=== PATIENT | female | born 1945 | race Caucasian/White ===

== ENCOUNTER 2021-11-15 18:52 | Inpatient (IN) ==
[2021-11-15] MEDS ORDERED: 0.9 % SODIUM CHLORIDE 250 ML IV ONE (19:20)
[2021-11-15 19:58] LABS: POC Calcium, Ionized 1.02 mmEq/L (1.16-1.32); POC Creatinine 11.9 mg/dL (0.6-1.2); POC Potassium 4.6 mEql/L (3.3-5.1)
[2021-11-15 20:29] LABS: Basophils # (Auto) 0.04 K/mcL (0.00-0.30); Basophils % (Auto) 0.3 % (0.0-2.0); Eosinophils # (Auto) 0.07 K/mcL (0.00-0.70); Eosinophils % (Auto) 0.5 % (0.0-7.0); Hematocrit 31.6 % (34.1-44.9); Hemoglobin 10.6 g/dL (11.2-15.7); Lymphocytes # (Auto) 2.07 K/mcL (1.50-4.80); Lymphocytes % (Auto) 16.1 % (15.5-49.0); Mean Cell Volume 104.3 fL (80.0-100.0); Mean Corpuscular HGB Conc 33.5 g/dL (31.0-36.0); Mean Platelet Volume 10.1 fL (7.4-10.4); Monocytes # (Auto) 0.76 K/mcL (0.10-0.90); Monocytes % (Auto) 5.9 % (1.0-12.0); Neutrophils % (Auto) 77.2 % (38.0-78.0); Platelet Count 327 K/mcL (140-440); RBC 3.03 M/mcL (3.59-5.38); Red Cell Distribution Width 12.8 % (11.5-14.5); WBC 12.9 K/mcL (4.5-11.0)
[2021-11-15 21:01] LABS: Appearance,Urine CLOUDY (Clear); Bacteria,Urine FEW /hpf (0); Bilirubin,Urine Negative (Negative); Color,Urine AMBER; Culture Indicated,Urine Yes; Glucose,Urine (UA) Negative (Negative); Ketones,Urine 5 mg/dL (Negative); Leukocyte Esterase,Urine 75 /uL (Negative); Nitrate,Urine Negative (Negative); Protein,Urine 100 mg/dL (Negative); Specific Gravity,Urine 1.025 (1.000-1.035); Urine Blood Negative (Negative); Urine RBC 0 /hpf (0-3); Urine Squamous Epithelial Cell < 1 /hpf (0-4); Urine WBC 1 /hpf (0-4); Urobilinogen,Urine Negative
[2021-11-15 21:25] LABS: ALT/SGPT 22 U/L (<40); AST/SGOT 23 U/L (<32); Albumin 3.5 gm/dL (3.2-5.2); Albumin/Globulin Ratio 0.9 (1.0-2.3); Alkaline Phosphatase 104 U/L (39-117); Bilirubin,Total 0.3 mg/dL (0.1-1.0); Blood Urea Nitrogen 96 mg/dL (8-23); Calcium 9.2 mg/dL (8.6-10.4); Carbon Dioxide 17 mmol/L (22-30); Chloride 84 mmol/L (96-108); Globulin 3.7 gm/dL (2.2-3.7); Glomerular Filtration Rate 3; Glucose 240 mg/dL (70-105)
[2021-11-15] MEDS ORDERED: DILTIAZEM 25 MG/5 ML VIAL IV ONE (21:29)
--- NOTE | 2021-11-15 21:56 | Emergency Department Note ---
Weakness HPI General Chief complaint: Weakness Stated complaint: Weakness Time Seen by Provider: 11/15/21 19:08 Source: patient Mode of arrival: wheelchair Limitations: no limitations History of Present Illness HPI Narrative: Narrative: This is a patient with end-stage renal disease now on peritoneal dialysis for last 6 months previously hemodialysis, atrial fibrillation presenting to the ED with generalized weakness and feeling lightheaded when she would stand up today. She has had some gradual progressive generalized weakness and daughter is concerned that she perhaps is not getting complete dialysis at home on PD. Patient also endorses a couple days of watery diarrhea and feels dehydrated. No significant acute abdominal pain but has some mild chronic cramps. No fever no chills no URI symptoms no chest pain no significant dyspnea. Patient still makes urine no obvious urinary symptoms. She saw her doctor yesterday for her generalized fatigue and they stopped her A. fib medication including her Cardizem. She has noticed her heart rate is high today. No other complaints Related Data Home Medications Medication Instructions Recorded Confirmed cyanocobalamin (vitamin B-12) 1 tab PO QDAY 07/26/21 11/16/21 insulin detemir U-100 100 unit/mL 76 unit SUB-Q BID 07/26/21 11/16/21 (3 mL) subcutaneous pen (Levemir FlexTouch U-100 Insulin) insulin lispro 100 unit/mL 5 unit SUBCUT TID 10/06/21 11/16/21 subcutaneous solution calcium carbonate 500 mg capsule 1,500 mg PO .TID with meals cap 11/14/21 11/16/21 Previous Rx's Medication Instructions Recorded sitagliptin 25 mg tablet (Januvia) 25 mg PO QDAY #30 tab 11/16/20 ondansetron HCl 4 mg tablet 4 mg PO Q8H PRN #20 tab 05/03/21 (Zofran) clonazepam 1 mg tablet 1 mg PO QHS #60 tab 08/08/21 gentamicin 0.1 % topical cream 1 applic TOPICAL .three times a 09/19/21 week #30 g atorvastatin 20 mg tablet 20 mg PO QHS #30 tab 11/14/21 Allergies Allergy/AdvReac Type Severity Reaction Status Date / Time No Known Drug Allergies Allergy Verified 11/15/21 18:56 Review of Systems ROS ROS Narrative: Narrative: At least 10 systems reviewed and otherwise acutely negative except as in the HPI PFSH Narrative Patient History Narrative: Narrative: Medical/Surgical/Family History All Active Problems (Updated 11/16/21 @ 01:21 by Mahendra Lopez DO) Episode of generalized weakness (Acute) ESRD (end stage renal disease) on dialysis (Acute) Atrial tachycardia (Acute) Acute hypotension (Acute) Acute dehydration (Acute) End-stage renal disease (ESRD) (Acute) Acute uremia (Acute) Atrial fibrillation with RVR (Acute) UTI (urinary tract infection) (Acute) Allergic rhinitis (Chronic) Anemia in chronic kidney disease (Chronic 11/26/13) Anxiety disorder (Chronic 10/26/13) Bladder spasm (Chronic) Late, effect, cerebrovascular disease (Chronic) Chronic fatigue syndrome (Chronic) Chronic kidney disease, stage IV (severe) (Chronic 11/26/13) Degenerative joint disease (Chronic) Dermatitis (Chronic 10/26/13) Diabetes mellitus, type II (Chronic) Fatigue (Chronic) Hyperlipidemia (Chronic) Hypertension, essential (Chronic) Hypertensive renal disease (Chronic 11/26/13) Hypertonicity of bladder (Chronic) 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) Dysmetabolic syndrome X (Chronic) Muscle weakness (generalized) (Chronic) Personal history of noncompliance with medical treatment (Chronic) Peripheral neuropathy (Chronic) Proteinuria (Chronic) Sleep apnea (Chronic) Personal history of transient ischemic attack (TIA) and cerebral infarction without residual deficit (Chronic) Vitamin D deficiency (Chronic) Obesity (BMI 30.0-34.9) (Chronic) Hyperparathyroidism due to renal insufficiency (Chronic) Chronic anticoagulation (Chronic) Heart murmur, systolic (Chronic) History of gout (Chronic) Chronic renal failure, stage 4 (severe) (Chronic) Encounter for monitoring chronic NSAID therapy (Acute) Dehydration (Acute) Uncontrolled type 2 diabetes mellitus with stage 4 chronic kidney disease, with long-term current use of insulin (Chronic) Chronic edema (Chronic) UTI symptoms (Chronic) Anemia in chronic kidney disease (Chronic) Difficulty swallowing pills (Acute) Anemia due to stage 5 chronic kidney disease treated with darbepoetin (Chronic) CKD (chronic kidney disease) stage 5, GFR less than 15 ml/min (Chronic) Nephrotic range proteinuria (Chronic) CKD stage 5 due to type 2 diabetes mellitus (Acute) Abn react-renal dialysis (Acute) Type 2 DM with hypertension and ESRD on dialysis (Acute) Anxiety attack (Acute) ESRD (end stage renal disease) on dialysis (Acute) Hyperparathyroidism due to ESRD on dialysis (Acute) Constipation (Acute) Nausea and vomiting (Acute) Fatigue (Acute) Nausea (Acute) Acute UTI (urinary tract infection) (Acute) Situational anxiety (Acute) Vascular dialysis catheter in place (Acute) Tachycardia (Acute) Weakness (Acute) Atrial flutter (Acute) Vomiting (Acute) Abdominal pain (Acute) ESRD (end stage renal disease) (Acute) Complication of renal dialysis (Acute) Chronic anxiety (Acute) Peritoneal dialysis catheter exit site infection (Acute) Peritonitis associated with peritoneal dialysis (Acute) Dialysis catheter clot or failure (Acute) PD catheter dysfunction (Acute) PD catheter dysfunction (Acute) End stage kidney disease (Acute) Medical History Allergic rhinitis Anemia due to stage 5 chronic kidney disease treated with darbepoetin Progressive decline in GFR slowly approaching ESRD Symptomatic anemia with hematocrit of 28 Aranesp started Iron stores adequate Anemia in chronic kidney disease (11/26/13) Anxiety disorder (10/26/13) Bladder spasm Chronic anticoagulation clopidogrel (due to 2 TIA's) Chronic edema DM, proteinuria and reduced GFR. Suspect not salt restricted either. Chronic fatigue syndrome Chronic kidney disease, stage I Chronic kidney disease, stage II (mild) Chronic kidney disease, stage III (moderate) (12/17/13) Chronic kidney disease, stage IV (severe) (11/26/13) Severe proteinuria with a differential diagnosis of hypertensive nephrosclerosis, NSAID induced membranous GN versus diabetic nephrosclerosis. Have eliminated any myeloma. Chronic renal failure, stage 4 (severe) If one looks at the differential outlined in problem #1, all these are going to be treated by good diabetic control, goal blood pressure of 130/80, and using anti-proteinuric renal protective blood pressure medicines such as diltiazem and losartan. I fear its to like to have a significant impact on avoiding renal replacement therapy and end-stage renal disease CKD (chronic kidney disease) stage 5, GFR less than 15 ml/min Progressive decline in GFR with heavy proteinuria in the setting of diabetes We will check her pANCA level in case there is a pauci-immune GN but I doubt it She is on diltiazem with a low-dose RAASI but still has approximately 10 g of proteinuria Degenerative joint disease knees Depression Depression, major, single episode, moderate (10/26/13) Dermatitis (10/26/13) Diabetes mellitus, type II Diarrhea Disorder of kidney and ureter Chronic renal failure Dysmetabolic syndrome X Fatigue Heart murmur, systolic History of gout well controlled on chronic allopurinol Hyperlipidemia Hyperparathyroidism due to renal insufficiency Goal PTH level of 100-300 given his degree of renal failure Hypertension, essential Hypertensive renal disease (11/26/13) Hypertonicity of bladder Knee effusion Late, effect, cerebrovascular disease 03/2013 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 Muscle weakness (generalized) Nephrotic range proteinuria Presumed diabetes as the remainder of her noninvasive work-up is been negative Final test was and ANCA which was ordered for next month She is on RAASI and diltiazem to no avail Obesity (BMI 30.0-34.9) Peripheral neuropathy Personal history of noncompliance with medical treatment Personal history of transient ischemic attack (TIA) and cerebral infarction without residual deficit Proteinuria Nephrotic range Pyelonephritis Sleep apnea refused CPAP Uncontrolled type 2 diabetes mellitus with stage 4 chronic kidney disease, with long-term current use of insulin 20 + yrs DM with marked insulin resistance and proteinuria and progressive, poor renal fx UTI symptoms On oxybutynin which she says helps dribbling but may contribute to frequent UTIs Vitamin D deficiency Surgical History History of cataract surgery 2006 bilateral History of colonoscopy (06/07/13) History of esophagogastroduodenoscopy (06/07/13) History of hysterectomy 1998 History of joint replacement [address] Giron History of surgery 07/28/2021-laparoscopic assisted peritoneal dialysis catheter placement History of surgery 10/10/2021-PD catheter repositioning Family History Father Alcohol abuse Pulmonary emphysema Cause of Unknown Alzheimer's disease Type 2 diabetes mellitus Hypertension Disorder of joint Mother Alzheimer's disease Aunt Diabetes mellitus Brother Diabetes mellitus Social History Smoking Status: Never smoker Alcohol Intake Frequency: holiday/special occasion only Substance Use: does not use Exam Narrative Narrative: Narrative:Constitutional: normally developed, no acute distress . Head: Normocephalic, atraumatic, Eyes: No Icterus, ENT: Dry mucus membranes, Neck: Supple, Cardiac: Tachycardic irregular heart sounds, palpable radial pulses, no significant peripheral edema Pulmonary: Normal respiratory effort. Breath sounds clear, no wheeze, rhonchi, rales, Gastrointestinal: Abdomen soft, non-distended, non-tender, well-appearing left- sided PD catheter Musculoskeletal: No gross deformities, well perfused Skin: warm, dry Neuro: Alert and oriented. General Limitations: no limitations Course Vital Signs Vital signs: Vital Signs Temperature 36.1 C 11/15/21 18:53 Pulse Rate 140 H 11/15/21 18:53 Blood Pressure 98/64 11/15/21 18:53 Pulse Oximetry (%) 95 11/15/21 18:53 Temperature 36.1 C 11/15/21 18:53 Pulse Rate 125 H 11/16/21 01:20 Respiratory Rate 19 11/16/21 01:20 Blood Pressure 128/72 11/16/21 01:00 Pulse Oximetry (%) 96 11/16/21 01:[address] [facility] MDM Narrative Medical decision making narrative: Narrative: ESRD on nightly PD presenting with gradual generalized weakness myalgias feeling dehydrated and dizzy with standing, flareup of her A. fib after her medications were stopped yesterday. Work-up is initiated no new acute abdominal complaints or tenderness to suggest an SBP. She does appear a bit dry and is in A. fib RVR we will give her small aliquots of IV fluids given her ESRD status given initial 250 mL I suspect somewhat of her A. fib RVR is secondary to the fact she was stopped on her rate control Cardizem yesterday. Did give her 10 mg IV Cardizem which did help her rate from the 130s to 40s to 100s Covid flu negative Chest x-ray per my interpretation shows no acute findings mostly chronic Does have mild leukocytosis 12.9 nonspecific although her urine appears mildly infectious and given her complaints we will cover her for now with Rocephin pending culture Electrolytes show a significant uremia with progressively worsening ESRD compared to her previous visits. Family is concerned she may not be getting fully dialyzed on her nightly PD at home She is uremic at 114, creatinine almost 12 with a anion gap mild metabolic acidosis likely due to the KIRIT/CKD, mildly hyperglycemic to 220s LFTs bilirubin within normal Initial troponin is elevated 0.4, she has no chest pain at any time. I suspect this is most likely due to her worsening renal function as well as the fact she has been in A. fib RVR for an unknown amount of time We did trend her troponin it is not increasing remained steady 0.4 Twelve-lead EKG shows A. fib with RVR heart rate 135 unchanged right bundle branch block with slight J-point depression in lateral leads consistent with previous EKG QTc within normal Repeat EKG at 2132 shows A. fib again heart rate 129, no ST elevations appear similar to prior EKG with lateral J-point depressions similar to EKGs in October CT of the abdomen shows some questionable stranding in the anterior abdominal wall nonspecific, on exam no obvious cellulitis. There is some moderate free air given the presence of PD catheter might be related to placement or use of the catheter though hollow viscus organ perforation is not excluded. -This does not fit with her presentation she has mild abdominal chronic cramps but no acute or severe pain no trauma or injury no reports of GI bleeding and she has a completely nontender examination. Thus I suspect this is consistent with her known PD dialysis catheter Reevaluation is feeling better rate is better controlled was given a second small 250 bolus and Cardizem. maps have remained stable Patient does feel better, have spoken with on-call locksmith helper, do recommend admission here to undergo complete run of peritoneal dialysis tomorrow to help correct her metabo lic derangements and uremia supervisor intermediates has spoken with the peritoneal dialysis nurse who is available to do this tomorrow, and I have spoken with hospitalist who accepts admission. Lab Data Result diagrams: 11/15/21 19:15 11/15/21 19:15 Labs: Lab Results 11/15/21 11/15/21 11/15/21 Range/Units 19:15 19:15 19:15 WBC 12.9 H (4.5-11.0) K/mcL RBC 3.03 L (3.59-5.38) M/mcL Hgb 10.6 L (11.2-15.7) g/dL Hct 31.6 L (34.1-44.9) % POC Hct (36-48) % MCV 104.3 H (80.0-100.0) fL MCH 35.0 H (26.0-34.0) pg MCHC 33.5 (31.0-36.0) g/dL RDW 12.8 (11.5-14.5) % Plt Count 327 (140-440) K/mcL MPV 10.1 (7.4-10.4) fL Neut % (Auto) 77.2 (38.0-78.0) % Lymph % (Auto) 16.1 (15.5-49.0) % [place] % (Auto) 5.9 (1.0-12.0) % Eos % (Auto) 0.5 (0.0-7.0) % Baso % (Auto) 0.3 (0.0-2.0) % Lymph # (Auto) 2.07 (1.50-4.80) K/mcL [place] # (Auto) 0.76 (0.10-0.90) K/mcL Eos # (Auto) 0.07 (0.00-0.70) K/mcL Baso # (Auto) 0.04 (0.00-0.30) K/mcL Absolute Neutrophils 9.93 H (1.80-8.00) K/mcL POC Sodium (133-145) mEq/L Sodium 131 L (133-145) mmol/L POC Potassium (3.3-5.1) mEql/L Potassium 4.9 (3.3-5.1) mmol/L POC Chloride (96-108) mEq/L Chloride 84 L (96-108) mmol/L Carbon Dioxide 17 L (22-30) mmol/L POC Total CO2 (22-30) mmol/L Anion Gap 30.0 H (8.0-16.0) POC BUN (6-20) mg/dL BUN 96 H (8-23) mg/dL Creatinine 11.3 H* (0.6-1.1) mg/dL POC Creatinine (0.6-1.2) mg/dL GFR Calculation 3 Glucose 240 H (70-105) mg/dL POC Glucose (70-105) mg/dL Calcium 9.2 (8.6-10.4) mg/dL POC WB Ioniz Calcium (1.16-1.32) mmEq/L Total Bilirubin 0.3 (0.1-1.0) mg/dL AST 23 (<32) U/L ALT 22 (<40) U/L Alkaline Phosphatase 104 (39-117) U/L Troponin T 0.40 H* (<0.03) ng/mL Total Protein 7.2 (5.9-8.4) gm/dL Albumin 3.5 (3.2-5.2) gm/dL Globulin 3.7 (2.2-3.7) gm/dL Albumin/Globulin Ratio 0.9 L (1.0-2.3) Urine Color Urine Appearance (Clear) Urine pH (5.0-9.0) Ur Specific Brandon (1.000-1.035) Urine Protein (Negative) mg/dL Urine Glucose (UA) (Negative) mg/dL Urine Ketones (Negative) mg/dL Urine Occult Blood (Negative) mg/dL Urine Nitrate (Negative) Urine Bilirubin (Negative) mg/dL Urine Urobilinogen mg/dL Ur Leukocyte Esterase (Negative) /uL Urine RBC (0-3) /hpf Urine WBC (0-4) /hpf Ur Squamous Epith Cells (0-4) /hpf Urine Bacteria (0) /hpf Ur Culture Indicated? 11/15/21 11/15/21 11/15/21 Range/Units 19:15 20:00 22:12 WBC (4.5-11.0) K/mcL RBC (3.59-5.38) M/mcL Hgb (11.2-15.7) g/dL Hct (34.1-44.9) % POC Hct 32 L (36-48) % MCV (80.0-100.0) fL MCH (26.0-34.0) pg MCHC (31.0-36.0) g/dL RDW (11.5-14.5) % Plt Count (140-440) K/mcL MPV (7.4-10.4) fL Neut % (Auto) (38.0-78.0) % Lymph % (Auto) (15.5-49.0) % Bethel % (Auto) (1.0-12.0) % Eos % (Auto) (0.0-7.0) % Baso % (Auto) (0.0-2.0) % Lymph # (Auto) (1.50-4.80) K/mcL Bethel # (Auto) (0.10-0.90) K/mcL Eos # (Auto) (0.00-0.70) K/mcL Baso # (Auto) (0.00-0.30) K/mcL Absolute Neutrophils (1.80-8.00) K/mcL POC Sodium 131 L (133-145) mEq/L Sodium (133-145) mmol/L POC Potassium 4.6 (3.3-5.1) mEql/L Potassium (3.3-5.1) mmol/L POC Chloride 94 L (96-108) mEq/L Chloride (96-108) mmol/L Carbon Dioxide (22-30) mmol/L POC Total CO2 20 L (22-30) mmol/L Anion Gap (8.0-16.0) POC BUN 114 H* (6-20) mg/dL BUN (8-23) mg/dL Creatinine (0.6-1.1) mg/dL POC Creatinine 11.9 H* (0.6-1.2) mg/dL GFR Calculation Glucose (70-105) mg/dL POC Glucose 224 H (70-105) mg/dL Calcium (8.6-10.4) mg/dL POC WB Ioniz Calcium 1.02 L (1.16-1.32) mmEq/L Total Bilirubin (0.1-1.0) mg/dL AST (<32) U/L ALT (<40) U/L Alkaline Phosphatase (39-117) U/L Troponin T 0.40 H* (<0.03) ng/mL Total Protein (5.9-8.4) gm/dL Albumin (3.2-5.2) gm/dL Globulin (2.2-3.7) gm/dL Albumin/Globulin Ratio (1.0-2.3) Urine Color [place] Urine Appearance Cloudy A (Clear) Urine pH 5.0 (5.0-9.0) Ur Specific Brandon 1.025 (1.000-1.035) Urine Protein 100 A (Negative) mg/dL Urine Glucose (UA) Negative (Negative) mg/dL Urine Ketones 5 A (Negative) mg/dL Urine Occult Blood Negative (Negative) mg/dL Urine Nitrate Negative (Negative) Urine Bilirubin Negative (Negative) mg/dL Urine Urobilinogen Negative mg/dL Ur Leukocyte Esterase 75 A (Negative) /uL Urine RBC 0 (0-3) /hpf Urine WBC 1 (0-4) /hpf Ur Squamous Epith Cells < 1 (0-4) /hpf Urine Bacteria Few A (0) /hpf Ur Culture Indicated? Yes ED POC Tests ED POC Tests: REVA - Influenza A Negative REVA - Influenza B Negative REVA - SARS Antigen Negative Discharge Plan Patient/Caregiver Discharge Instructions Pt seen by SPEED BELT SANDER TENDER/PA only: No Clinical Impression: End-stage renal disease (ESRD), Acute uremia, Atrial fibrillation with RVR, UTI (urinary tract infection) Patient Disposition: Xfer Acute [facility] Condition: Serious Follow up with: Praveen Irby DO [Primary Care Provider] - Prescriptions: No Action Januvia 25 mg tablet 25 mg PO QDAY Qty: 30 11RF ondansetron HCl [Zofran] 4 mg tablet 4 mg PO Q8H PRN (Reason: nausea and vomiting) Qty: 20 2RF clonazepam 1 mg tablet 1 mg PO QHS Qty: 60 0RF Rx Instructions: administer 30 minutes before bedtime and 30 min before start of hemodialysis gentamicin 0.1 % cream 1 applic topical .three times a week Qty: 30 0RF calcium carbonate 500 mg capsule 1,500 mg PO .TID with meals 0RF Label Comments: Over the counter atorvastatin 20 mg tablet 20 mg PO QHS Qty: 30 11RF cyanocobalamin (vitamin B-12) Tablet,Chewable 1 tab PO QDAY 0RF Levemir FlexTouch U-100 Insuln 100 unit/mL (3 mL) insulin pen 76 unit SUB-Q BID 0RF insulin lispro 100 unit/mL Solution 5 unit SUBCUT TID 0RF
[2021-11-15] MEDS ORDERED: LORazepam 2 MG/ML VIAL IV ONE (23:36)
[2021-11-15] MEDS ORDERED: cefTRIAXone 1 GM VIAL IV ONE (23:37)
[2021-11-16] MEDS ORDERED: morphine 2 MG/ML VIAL IV PRN (00:16)
[2021-11-16] MEDS ORDERED: LACTATED RINGERS 250 ML IV ONE (01:12)
[2021-11-16] MEDS ORDERED: DILTIAZEM 25 MG/5 ML VIAL IV ONE (01:23)
[2021-11-16] MEDS ORDERED: 0.9 % SODIUM CHLORIDE 250 ML IV ONE (01:23)
--- NOTE | 2021-11-16 03:35 | XRay Report ---
CLINICAL INFORMATION: Fatigue and weakness COMPARISON: 10/08/2021. TECHNIQUE: Portable FINDINGS: The heart size, mediastinum and pulmonary vessels are unremarkable. The lungs are clear. There are no effusions. The bones and soft tissues are within normal limits. IMPRESSION: Normal chest. Interpreted and Authenticated by: Kailash Fernandez 11/16/21
--- NOTE | 2021-11-16 05:31 | Cat Scan Report ---
CLINICAL INFORMATION: Diffuse abdominal pain. COMPARISON: Abdomen and pelvic CT 08/07/2021 TECHNIQUE: 0.625 mm helical slices were obtained from the mid heart through the subtrochanteric regions. Following reconstruction, 2.5 mm sagittal, coronal and axial reformatted images were processed and reviewed at bone and soft tissue windows.The exam was performed using radiation dose optimization techniques including, but not limited to, automated exposure control, adjustment of the mA and/or kV according to patient size and use of iterative reconstruction technique. FINDINGS: The lung bases show scattered scarring and/or atelectasis. A 4.5 mm nodular nodule in the right lower lobe, adjacent to major fissure on image 17 is unchanged should represent benign subpulmonic lymph node. A 2 mm nodule lateral basilar segment left lower lobe on image 21 is also unchanged bowel with benign granuloma. There are no pleural effusions. The visualized heart is mildly enlarged with scattered calcification in the coronary arteries. Abdominal images show the noncontrasted liver is normal in size and attenuation. A cluster of 4-5 low-attenuation lesions has developed in the hector hepatis since the previous exam. These range up to 19 mm and measure negative Hounsfield units compatible with multifocal fat deposition. The gallbladder is surgically absent. Common bile duct is mildly dilated (9 mm) but unchanged and compatible with 1post cholecystectomy state. Mild bilateral adrenal hyperplasia is unchanged. The spleen, pancreas, noncontrast aorta are all unremarkable. Moderate free fluid seen in the pelvis with smaller amounts in the paracolic gutters, perihepatic and perisplenic regions. This may represent peritoneal dialysate. Small amount of free intraperitoneal air noted in the epigastric region is new from the previous exam. Both noncontrasted kidneys are lower limits of normal for size: the right is 9.4 in length and the left is 9 cm in length. Extensive lobulation appreciated with scattered low-attenuation lesions likely representing cysts. No change. Mild perinephric stranding seen bilaterally. There is no hydronephrosis. A few small nonobstructing stones seen within the calyces of the right kidney Pelvic images show urinary bladder is grossly normal with small amount of urine. Hysterectomy and oophorectomy changes noted. The stomach, small/large bowel and appendix region are all grossly normal. Peroneal dialysis catheter enters the left lower quadrant anterior abdominal wall then descends into the intraperitoneal cavity and remains coiled in the true pelvis just superior to the urinary bladder. No evidence of catheter breakage or other complication. Catheter remain in stable position.. Bone windows show moderate osteoporosis. L5-S1 broad disc spur complex results in moderate central canal and severe left IV foraminal narrowing-no change. Moderate filtration of the subdermal fat within Camper's region of the anterior false pelvis wall as decreased. This could represent fibrosis, edema or inflammation. IMPRESSION: 1. Moderate free fluid in the pelvis with smaller amounts in the paracolic gutter, perihepatic and perisplenic regions. This is new from the previous study. In addition, there is a [id number] amount of free intraperitoneal gas in the epigastric region. While this may all be due to the peritoneal dialysis procedure, the possibility of a secondary process such as bowel perforation or bacterial peritonitis should be entertained. Suggest ultrasound-guided paracentesis. 2. Both kidneys show bilateral lobulation with scattered cysts in both kidneys. No change. 3. Mild bilateral adrenal hyperplasia more prominent on the left. Stable 4. Nonobstructing stones within the superior calyx of the right kidney both less than 3 mm. A 3 mm nonobstructing stone mid calyx right kidney. 5, New cluster of 4-5 low-attenuation lesions in the hector hepatis ranging up to 18 mm. These measure fat attenuation likely represent concentrated fat in the hector hepatis. Consider: abdominal ultrasound to evaluate these hepatic lesions and also all renal lesions to ensure that all lesions are cystic and not solid Interpreted and Authenticated by: Kailash Fernandez 11/16/21
--- NOTE | 2021-11-16 08:21 | Nephrology Consult Note ---
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 She presented to [facility] ED for weakness, dizziness, diarrhea. Her initial BP 98/64, HR 140. She received 500 ml IV fluids. Nephrology consultation was requested for end stage renal diseas e. cc:: CC: Cem Mcbride MD Constitutional Constitutional: Present weakness; Absent fever(s) EENT Nose, mouth and throat: Absent nasal congestion or sore throat Cardiovascular Cardiovascular: Present palpatations; Absent chest pain Respiratory Respiratory: Absent cough or dyspnea Gastrointestinal Gastrointestinal: Present abdominal pain, diarrhea and nausea; Absent vomiting Genitourinary Genitourinary: Absent dysuria or hematuria Integumentary Integumentary: Absent rash or wounds Neurological Neurological: Present dizziness and weakness; Absent confusion Psychiatric Psychiatric: Present anxiety Allergic/Immunologic Allergic/Immunologic: Absent tongue swelling or uticaria PFSH PFSH All Active Problems (Updated 11/16/21 @ 08:20 by Ean Kumar MD) Metabolic acidosis (Acute) Hyponatremia (Acute) End-stage renal disease on peritoneal dialysis (Chronic) Episode of generalized weakness (Acute) ESRD (end stage renal disease) on dialysis (Acute) Atrial tachycardia (Acute) Acute hypotension (Acute) Acute dehydration (Acute) End-stage renal disease (ESRD) (Acute) Acute uremia (Acute) Atrial fibrillation with RVR (Acute) UTI (urinary tract infection) (Acute) Allergic rhinitis (Chronic) Anemia in chronic kidney disease (Chronic 11/26/13) Anxiety disorder (Chronic 10/26/13) Bladder spasm (Chronic) Late, effect, cerebrovascular disease (Chronic) Chronic fatigue syndrome (Chronic) Chronic kidney disease, stage IV (severe) (Chronic 11/26/13) Degenerative joint disease (Chronic) Dermatitis (Chronic 10/26/13) Diabetes mellitus, type II (Chronic) Fatigue (Chronic) Hyperlipidemia (Chronic) Hypertension, essential (Chronic) Hypertensive renal disease (Chronic 11/26/13) Hypertonicity of bladder (Chronic) nursing home current use of insulin (Chronic) Dysmetabolic syndrome X (Chronic) Muscle weakness (generalized) (Chronic) Personal history of noncompliance with medical treatment (Chronic) Peripheral neuropathy (Chronic) Proteinuria (Chronic) Sleep apnea (Chronic) Personal history of transient ischemic attack (TIA) and cerebral infarction without residual deficit (Chronic) Vitamin D deficiency (Chronic) Obesity (BMI 30.0-34.9) (Chronic) Hyperparathyroidism due to renal insufficiency (Chronic) Chronic anticoagulation (Chronic) Heart murmur, systolic (Chronic) History of gout (Chronic) Chronic renal failure, stage 4 (severe) (Chronic) Encounter for monitoring chronic NSAID therapy (Acute) Dehydration (Acute) Uncontrolled type 2 diabetes mellitus with stage 4 chronic kidney disease, with long-term current use of insulin (Chronic) Chronic edema (Chronic) UTI symptoms (Chronic) Anemia in chronic kidney disease (Chronic) Difficulty swallowing pills (Acute) Anemia due to stage 5 chronic kidney disease treated with darbepoetin (Chronic) CKD (chronic kidney disease) stage 5, GFR less than 15 ml/min (Chronic) Nephrotic range proteinuria (Chronic) CKD stage 5 due to type 2 diabetes mellitus (Acute) Abn react-renal dialysis (Acute) Type 2 DM with hypertension and ESRD on dialysis (Acute) Anxiety attack (Acute) ESRD (end stage renal disease) on dialysis (Acute) Hyperparathyroidism due to ESRD on dialysis (Acute) Constipation (Acute) Nausea and vomiting (Acute) Fatigue (Acute) Nausea (Acute) Acute UTI (urinary tract infection) (Acute) Situational anxiety (Acute) Vascular dialysis catheter in place (Acute) Tachycardia (Acute) Weakness (Acute) Atrial flutter (Acute) Vomiting (Acute) Abdominal pain (Acute) ESRD (end stage renal disease) (Acute) Complication of renal dialysis (Acute) Chronic anxiety (Acute) Peritoneal dialysis catheter exit site infection (Acute) Peritonitis associated with peritoneal dialysis (Acute) Dialysis catheter clot or failure (Acute) PD catheter dysfunction (Acute) PD catheter dysfunction (Acute) End stage kidney disease (Acute) Medical History Allergic rhinitis Anemia due to stage 5 chronic kidney disease treated with darbepoetin Progressive decline in GFR slowly approaching ESRD Symptomatic anemia with hematocrit of 28 Aranesp started Iron stores adequate Anemia in chronic kidney disease (11/26/13) Anxiety disorder (11/25/13) Bladder spasm Chronic anticoagulation clopidogrel (due to 2 TIA's) Chronic edema DM, proteinuria and reduced GFR. Suspect not salt restricted either. Chronic fatigue syndrome Chronic kidney disease, stage I Chronic kidney disease, stage II (mild) Chronic kidney disease, stage III (moderate) (12/17/13) Chronic kidney disease, stage IV (severe) (11/26/13) Severe proteinuria with a differential diagnosis of hypertensive nephrosclerosis, NSAID induced membranous GN versus diabetic nephrosclerosis. Have eliminated any myeloma. Chronic renal failure, stage 4 (severe) If one looks at the differential outlined in problem #1, all these are going to be treated by good diabetic control, goal blood pressure of 130/80, and using anti-proteinuric renal protective blood pressure medicines such as diltiazem and losartan. I fear its to like to have a significant impact on avoiding renal replacement therapy and end-stage renal disease CKD (chronic kidney disease) stage 5, GFR less than 15 ml/min Progressive decline in GFR with heavy proteinuria in the setting of diabetes We will check her pANCA level in case there is a pauci-immune GN but I doubt it She is on diltiazem with a low-dose RAASI but still has approximately 10 g of proteinuria Degenerative joint disease knees Depression Depression, major, single episode, moderate (10/26/13) Dermatitis (10/26/13) Diabetes mellitus, type II Diarrhea Disorder of kidney and ureter Chronic renal failure Dysmetabolic syndrome X Fatigue Heart murmur, systolic History of gout well controlled on chronic allopurinol Hyperlipidemia Hyperparathyroidism due to renal insufficiency Goal PTH level of 100-300 given his degree of renal failure Hypertension, essential Hypertensive renal disease (11/26/13) Hypertonicity of bladder Knee effusion Late, effect, 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 Muscle weakness (generalized) Nephrotic range proteinuria Presumed diabetes as the remainder of her noninvasive work-up is been negative Final test was and ANCA which was ordered for next month She is on RAASI and diltiazem to no avail Obesity (BMI 30.0-34.9) Peripheral neuropathy Personal history of noncompliance with medical treatment Personal history of transient ischemic attack (TIA) and cerebral infarction without residual deficit Proteinuria Nephrotic range Pyelonephritis Sleep apnea refused CPAP Uncontrolled type 2 diabetes mellitus with stage 4 chronic kidney disease, with long-term current use of insulin 20 + yrs DM with marked insulin resistance and proteinuria and progressive, poor renal fx UTI symptoms On oxybutynin which she says helps dribbling but may contribute to frequent UTIs Vitamin D deficiency Surgical History History of cataract surgery 2006 bilateral History of colonoscopy (06/07/13) History of esophagogastroduodenoscopy (06/07/13) History of hysterectomy 1998 History of joint replacement [address] Giron History of surgery 07/28/2021-laparoscopic assisted peritoneal dialysis catheter placement History of surgery 10/10/2021-PD catheter repositioning Family History Father Alcohol abuse Pulmonary emphysema Cause of Unknown Alzheimer's disease Type 2 diabetes mellitus Hypertension Disorder of joint Mother Alzheimer's disease Aunt Diabetes mellitus Brother Diabetes mellitus Social History other: Grandchildren-she is caregiver of her granddaughter who has cerebral palsy alcohol intake frequency: holiday/special occasion only substance use type: does not use MEDS/ALLERGIES Home Medications and Allergies Home Medications Medication Instructions Recorded Confirmed Type sitagliptin 25 mg tablet (Januvia) 25 mg PO QDAY #30 tab 11/16/20 11/16/21 Rx ondansetron HCl 4 mg tablet 4 mg PO Q8H PRN #20 tab 05/03/21 11/16/21 Rx (Zofran) cyanocobalamin (vitamin B-12) 1 tab PO QDAY 07/26/21 11/16/21 History insulin detemir U-100 100 unit/mL 76 unit SUB-Q BID 07/26/21 11/16/21 History (3 mL) subcutaneous pen (Levemir FlexTouch U-100 Insulin) clonazepam 1 mg tablet 1 mg PO QHS #60 tab 08/08/21 11/16/21 Rx gentamicin 0.1 % topical cream 1 applic TOPICAL .three times a 09/19/21 11/16/21 Rx week #30 g insulin lispro 100 unit/mL 5 unit SUBCUT TID 10/06/21 11/16/21 History subcutaneous solution atorvastatin 20 mg tablet 20 mg PO QHS #30 tab 11/14/21 11/16/21 Rx calcium carbonate 500 mg capsule 1,500 mg PO .TID with meals cap 11/14/21 11/16/21 History Allergies Allergy/AdvReac Type Severity Reaction Status Date / Time No Known Drug Allergies Allergy Verified 11/15/21 18:56 Physical Examination Vital Signs Vital signs: Temp Pulse Resp BP Pulse Ox 96.5 F L 103 H 14 100/42 98 11/16/21 07:04 11/16/21 07:04 11/16/21 07:04 11/16/21 07:04 11/16/21 07:43 General Appearance General appearance: appears started age and chronically ill EENT EENT: mucous membranes moist Neck Neck: no JVD Respiratory Respiratory: clear Cardiovascular Cardiology: rapid rhythm and irregular rhythm Gastrointestinal Gastrointestinal: no tenderness Integumentary Integumentary: no rash Neurologic Neurologic: alert and oriented x3 Psychiatric Psychiatric: mood/affect appropriate and cooperative Results Lab Results Result Diagrams: 11/15/21 19:15 11/15/21 19:15 Lab results: Most recent lab results Calcium 9.2 mg/dL (8.6-10.4) 11/15/21 19:15 A/P Assessment and plan (1) End-stage renal disease on peritoneal dialysis: Assessment and plan: Debra Walker is a 76-year-old female with end stage renal disease on peritoneal dialysis, chronic anemia due to ESRD, hypertension, diabetes mellitus type 2, atrial fibrillation admitted on 11/16/21. She presented to [facility] ED for weakness, dizziness, diarrhea. Her initial BP 98/64, HR 140. She received 500 ml IV fluids. Nephrology consultation was requested for end stage renal disease. End stage renal disease on peritoneal dialysis. She missed several CCPD recently due to ongoing symptoms. Her labs indicate inadequate dialysis clearance. Chronic anemia due to ESRD. Atrial fibrillation with RVR. Hyponatremia. Metabolic acidosis. Abdominal pain. Suspected acute cystitis. No clinical suspicion for acute peritonitis so far. Workup: CT Abdomen and Pelvis on 11/15/21: Moderate free fluid in the pelvis with smaller amounts in the paracolic gutter, perihepatic and perisplenic regions. This is new from the previous study. In addition, there is a [id number] amount of free intraperitoneal gas in the epigastric region. While this may all be due to the peritoneal dialysis procedure, the possibility of a secondary process such as bowel perforation or bacterial peritonitis should be entertained. Suggest ultrasound-guided paracentesis. Both kidneys show bilateral lobulation with scattered cysts in both kidneys. No change. Mild bilateral adrenal hyperplasia more prominent on the left. Stable. Nonobstructing stones within the superior calyx of the right kidney both less than 3 mm. A 3 mm nonobstructing stone mid calyx right kidney. New cluster of 4-5 low-attenuation lesions in the hector hepatis ranging up to 18 mm. These measure fat attenuation likely represent concentrated fat in the hector hepatis. Consider: abdominal ultrasound to evaluate these hepatic lesions and also all renal lesions to ensure that all lesions are cystic and not solid. CXR on 11/15/21: Normal chest. Labs on 11/15/21: Urinalysis sushma, cloudy, pH 5.0, SG 1.025, protein 100, blood negative, leukocyte esterase 75, urine culture pending. Labs on 11/15/21: WBC 12.9, hemoglobin 10.6, PLT 327, serum sodium 131, potassium 4.9, CO2 17, creatinine 11.3, calcium 9.2, troponin T 0.4. Recommendations/Plan: No need for paracentesis. She has an intraperitoneal catheter. CAPD today during daytime (1.5%, 2L, 2 exchanges, 3.5 hours dwell time) for extra clearance without fluid removal. Continue CCPD nightly (1.5%-^l and 2.5%-3L; 10 hours, 5 exchanges, 2L fill volume, 300 ml last fill). Status: Chronic (2) Hyponatremia: Status: Acute (3) Metabolic acidosis: Status: Acute Time Spent With Patient Time: Total time spent is greater than 50% in coordination of care (as documented) at patient's floor/unit and/or counseling patient:
[2021-11-16] MEDS: ONDANSETRON 4 MG/2 ML VIAL IV PRN ×2 (09:53→22:00)
[2021-11-16] MEDS ORDERED: GENTAMICIN CRM 0.1% TUBE 15GM TOPICAL SCH (10:00)
[2021-11-16] MEDS ORDERED: METOPROLOL TARTRATE 5 MG/5 ML VIAL IV PRN (10:35)
--- NOTE | 2021-11-16 10:38 | Internal Med History&Physical ---
HPI History of Present Illness Patient information: Note initiated : 11/16/21 at 10:37 am Service Date, if different from initiated Date: [] Patient: Debra Walker 76 y/o F admitted on 11/16/21 for Weakness. Chief Complaint: [general body weakness, nausea, vomiting, epigastric abdominal pain ] Chief complaint: general body weakness, nausea, vomiting, epigastric abdominal pain History of present illness: Ms. Walker is a 76 year old F history of ESRD on PD, T2DM, atrial fibrillation, essential HTN, mixed dyslipidemia, p/w 3 days history of general body weakness, nausea, vomiting, epigastric abdominal pain, and decreased appetite. She was originally on hemodialysis, and was being switched to peritoneal dialysis about 6 months ago. She was in her usual state of health until 3 days ago when she developed general body weakness, nausea, vomiting, epigastric abdominal pain, and decreased appetite. Denies fever, chills, or sweating. Denies shortness of breath. Denies urinary symptoms such as dysuria, change in urinary frequency or urgency. ED labs suggestive of uremia and UTI. Constitutional Constitutional: Present weakness; Absent chills, excessive sweating, fatigue or fever(s) Additional comments: decreased appetite EENT Eyes: Absent blurry vision, change in vision, loss of vision or other visual disturbances Ears: Absent decreased hearing or tinnitus Nose, mouth and throat: Absent abnormal hearing, dry mouth, headache(s), nasal congestion or sore throat Cardiovascular Cardiovascular: Absent chest pain, chest pain at rest, edema, irregular heart rhythm or palpatations Respiratory Respiratory: Absent cough, dyspnea or wheezing Gastrointestinal Gastrointestinal: Present abdominal pain, nausea and vomiting; Absent constipation or diarrhea Musculoskeletal Musculoskeletal: Absent back pain, deformity, limited range of motion, muscle cramps, muscle weakness or numbness Integumentary Integumentary: Absent lesions, rash or wounds Neurological Neurological: Absent focal weakness, headache(s) or numbness Psychiatric Psychiatric: Absent anxiety, depression or hallucinations PFSH PFSH All Active Problems (Updated 11/16/21 @ 10:54 by Cem Mcbride MD) Atrial fibrillation, permanent (Acute) Metabolic acidosis (Acute) Hyponatremia (Acute) End-stage renal disease on peritoneal dialysis (Chronic) Episode of generalized weakness (Acute) ESRD (end stage renal disease) on dialysis (Acute) Atrial tachycardia (Acute) Acute hypotension (Acute) Acute dehydration (Acute) End-stage renal disease (ESRD) (Acute) Acute uremia (Acute) Atrial fibrillation with RVR (Acute) UTI (urinary tract infection) (Acute) Allergic rhinitis (Chronic) Anemia in chronic kidney disease (Chronic 11/26/13) Anxiety disorder (Chronic 10/26/13) Bladder spasm (Chronic) Late, effect, cerebrovascular disease (Chronic) Chronic fatigue syndrome (Chronic) Chronic kidney disease, stage IV (severe) (Chronic 11/26/13) Degenerative joint disease (Chronic) Dermatitis (Chronic 10/26/13) Diabetes mellitus, type II (Chronic) Fatigue (Chronic) Hyperlipidemia (Chronic) Hypertension, essential (Chronic) Hypertensive renal disease (Chronic 11/26/13) Hypertonicity of bladder (Chronic) intermediate current use of insulin (Chronic) Dysmetabolic syndrome X (Chronic) Muscle weakness (generalized) (Chronic) Personal history of noncompliance with medical treatment (Chronic) Peripheral neuropathy (Chronic) Proteinuria (Chronic) Sleep apnea (Chronic) Personal history of transient ischemic attack (TIA) and cerebral infarction without residual deficit (Chronic) Vitamin D deficiency (Chronic) Obesity (BMI 30.0-34.9) (Chronic) Hyperparathyroidism due to renal insufficiency (Chronic) Chronic anticoagulation (Chronic) Heart murmur, systolic (Chronic) History of gout (Chronic) Chronic renal failure, stage 4 (severe) (Chronic) Encounter for monitoring chronic NSAID therapy (Acute) Dehydration (Acute) Uncontrolled type 2 diabetes mellitus with stage 4 chronic kidney disease, with long-term current use of insulin (Chronic) Chronic edema (Chronic) UTI symptoms (Chronic) Anemia in chronic kidney disease (Chronic) Difficulty swallowing pills (Acute) Anemia due to stage 5 chronic kidney disease treated with darbepoetin (Chronic) CKD (chronic kidney disease) stage 5, GFR less than 15 ml/min (Chronic) Nephrotic range proteinuria (Chronic) CKD stage 5 due to type 2 diabetes mellitus (Acute) Abn react-renal dialysis (Acute) Type 2 DM with hypertension and ESRD on dialysis (Acute) Anxiety attack (Acute) ESRD (end stage renal disease) on dialysis (Acute) Hyperparathyroidism due to ESRD on dialysis (Acute) Constipation (Acute) Nausea and vomiting (Acute) Fatigue (Acute) Nausea (Acute) Acute UTI (urinary tract infection) (Acute) Situational anxiety (Acute) Vascular dialysis catheter in place (Acute) Tachycardia (Acute) Weakness (Acute) Atrial flutter (Acute) Vomiting (Acute) Abdominal pain (Acute) ESRD (end stage renal disease) (Acute) Complication of renal dialysis (Acute) Chronic anxiety (Acute) Peritoneal dialysis catheter exit site infection (Acute) Peritonitis associated with peritoneal dialysis (Acute) Dialysis catheter clot or failure (Acute) PD catheter dysfunction (Acute) PD catheter dysfunction (Acute) End stage kidney disease (Acute) Medical History Allergic rhinitis Anemia due to stage 5 chronic kidney disease treated with darbepoetin Progressive decline in GFR slowly approaching ESRD Symptomatic anemia with hematocrit of 28 Aranesp started Iron stores adequate Anemia in chronic kidney disease (11/26/13) Anxiety disorder (10/26/13) Bladder spasm Chronic anticoagulation clopidogrel (due to 2 TIA's) Chronic edema DM, proteinuria and reduced GFR. Suspect not salt restricted either. Chronic fatigue syndrome Chronic kidney disease, stage I Chronic kidney disease, stage II (mild) Chronic kidney disease, stage III (moderate) (12/17/13) Chronic kidney disease, stage IV (severe) (11/26/13) Severe proteinuria with a differential diagnosis of hypertensive nephrosclerosis, NSAID induced membranous GN versus diabetic nephrosclerosis. Have eliminated any myeloma. Chronic renal failure, stage 4 (severe) If one looks at the differential outlined in problem #1, all these are going to be treated by good diabetic control, goal blood pressure of 130/80, and using anti-proteinuric renal protective blood pressure medicines such as diltiazem and losartan. I fear its to like to have a significant impact on avoiding renal replacement therapy and end-stage renal disease CKD (chronic kidney disease) stage 5, GFR less than 15 ml/min Progressive decline in GFR with heavy proteinuria in the setting of diabetes We will check her pANCA level in case there is a pauci-immune GN but I doubt it She is on diltiazem with a low-dose RAASI but still has approximately 10 g of proteinuria Degenerative joint disease knees Depression Depression, major, single episode, moderate (10/26/13) Dermatitis (10/26/13) Diabetes mellitus, type II Diarrhea Disorder of kidney and ureter Chronic renal failure Dysmetabolic syndrome X Fatigue Heart murmur, systolic History of gout well controlled on chronic allopurinol Hyperlipidemia Hyperparathyroidism due to renal insufficiency Goal PTH level of 100-300 given his degree of renal failure Hypertension, essential Hypertensive renal disease (11/26/13) Hypertonicity of bladder Knee effusion Late, effect, cerebrovascular disease 03/2013 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 Muscle weakness (generalized) Nephrotic range proteinuria Presumed diabetes as the remainder of her noninvasive work-up is been negative Final test was and ANCA which was ordered for next month She is on RAASI and diltiazem to no avail Obesity (BMI 30.0-34.9) Peripheral neuropathy Personal history of noncompliance with medical treatment Personal history of transient ischemic attack (TIA) and cerebral infarction without residual deficit Proteinuria Nephrotic range Pyelonephritis Sleep apnea refused CPAP Uncontrolled type 2 diabetes mellitus with stage 4 chronic kidney disease, with long-term current use of insulin 20 + yrs DM with marked insulin resistance and proteinuria and progressive, poor renal fx UTI symptoms On oxybutynin which she says helps dribbling but may contribute to frequent UTIs Vitamin D deficiency Surgical History History of cataract surgery 2006 bilateral History of colonoscopy (06/07/13) History of esophagogastroduodenoscopy (06/07/13) History of hysterectomy 1998 History of joint replacement [address] Giron History of surgery 07/28/2021-laparoscopic assisted peritoneal dialysis catheter placement History of surgery 10/10/2021-PD catheter repositioning Family History Father Alcohol abuse Pulmonary emphysema Cause of Unknown Alzheimer's disease Type 2 diabetes mellitus Hypertension Disorder of joint Mother Alzheimer's disease Aunt Diabetes mellitus Brother Diabetes mellitus Social History other: Grandchildren-she is caregiver of her granddaughter who has cerebral palsy alcohol intake frequency: holiday/special occasion only substance use type: does not use MEDS/ALLERGIES Home Medications and Allergies Home Medications Medication Instructions Recorded Confirmed Type sitagliptin 25 mg tablet (Januvia) 25 mg PO QDAY #30 tab 11/16/20 11/16/21 Rx ondansetron HCl 4 mg tablet 4 mg PO Q8H PRN #20 tab 05/03/21 11/16/21 Rx (Zofran) cyanocobalamin (vitamin B-12) 1 tab PO QDAY 07/26/21 11/16/21 History insulin detemir U-100 100 unit/mL 76 unit SUB-Q BID 07/26/21 11/16/21 History (3 mL) subcutaneous pen (Levemir FlexTouch U-100 Insulin) clonazepam 1 mg tablet 1 mg PO QHS #60 tab 08/08/21 11/16/21 Rx gentamicin 0.1 % topical cream 1 applic TOPICAL .three times a 09/19/21 11/16/21 Rx week #30 g insulin lispro 100 unit/mL 5 unit SUBCUT TID 10/06/21 11/16/21 History subcutaneous solution atorvastatin 20 mg tablet 20 mg PO QHS #30 tab 11/14/21 11/16/21 Rx calcium carbonate 500 mg capsule 1,500 mg PO .TID with meals cap 11/14/21 11/16/21 History Allergies Allergy/AdvReac Type Severity Reaction Status Date / Time No Known Drug Allergies Allergy Verified 11/15/21 18:56 EXAM Constitutional Vitals: Temp Pulse Resp BP Pulse Ox 35.8 C L 103 H 14 100/42 98 11/16/21 07:04 11/16/21 07:04 11/16/21 07:04 11/16/21 07:04 11/16/21 07:43 General appearance: cooperative and no acute distress Head Head exam: Present atraumatic and normocephalic Eye Eye exam: Present EOMI and PERRL ENT ENT exam: Present mucous membranes moist, normal exam and normal external ear exam Neck Neck exam: Present normal inspection; Absent lymphadenopathy, tenderness or thyromegaly Respiratory Respiratory exam: Absent accessory muscle use, respiratory distress or wheezes Cardiovascular Cardiovascular exam: Present irregular rhythm and tachycardia; Absent JVD GI/Abdominal GI/Abdominal exam: Present normal bowel sounds and soft; Absent organomegaly or tenderness Additional comments: Peritoneal dialysis assess Extremities Exam Extremities exam: Present full ROM, normal capillary refill and normal inspection; Absent tenderness Neurological Exam Neurological exam: Present alert, CN II-XII intact and oriented X3; Absent motor sensory deficit Psychiatric Psychiatric exam: Present normal affect and normal mood; Absent anxious or depressed Skin Skin exam: Present dry and intact DATA Data Completed and Pending Labs: Labs from last 24 hours 11/15/21 11/15/21 11/15/21 22:12 20:00 19:15 WBC RBC Hgb Hct POC Hct 32 L MCV MCH MCHC RDW Plt Count MPV Neut % (Auto) Lymph % (Auto) [place] % (Auto) Eos % (Auto) Baso % (Auto) Lymph # (Auto) [place] # (Auto) Eos # (Auto) Baso # (Auto) Absolute Neutrophils POC Sodium 131 L Sodium POC Potassium 4.6 Potassium POC Chloride 94 L Chloride Carbon Dioxide POC Total CO2 20 L Anion Gap POC BUN 114 H* BUN Creatinine POC Creatinine 11.9 H* GFR Calculation Glucose POC Glucose 224 H Calcium POC WB Ioniz Calcium 1.02 L Total Bilirubin AST ALT Alkaline Phosphatase Troponin T 0.40 H* Total Protein Albumin Globulin Albumin/Globulin Ratio Urine Color [place] Urine Appearance Cloudy A Urine pH 5.0 Ur Specific [place] 1.025 Urine Protein 100 A Urine Glucose (UA) Negative Urine Ketones 5 A Urine Occult Blood Negative Urine Nitrate Negative Urine Bilirubin Negative Urine Urobilinogen Negative Ur Leukocyte Esterase 75 A Urine RBC 0 Urine WBC 1 Ur Squamous Epith Cells < 1 Urine Bacteria Few A Ur Culture Indicated? Yes 11/15/21 11/15/21 11/15/21 19:15 19:15 19:15 WBC 12.9 H RBC 3.03 L Hgb 10.6 L Hct 31.6 L POC Hct MCV 104.3 H MCH 35.0 H MCHC 33.5 RDW 12.8 Plt Count 327 MPV 10.1 Neut % (Auto) 77.2 Lymph % (Auto) 16.1 [place] % (Auto) 5.9 Eos % (Auto) 0.5 Baso % (Auto) 0.3 Lymph # (Auto) 2.07 [place] # (Auto) 0.76 Eos # (Auto) 0.07 Baso # (Auto) 0.04 Absolute Neutrophils 9.93 H POC Sodium Sodium 131 L POC Potassium Potassium 4.9 POC Chloride Chloride 84 L Carbon Dioxide 17 L POC Total CO2 Anion Gap 30.0 H POC BUN BUN 96 H Creatinine 11.3 H* POC Creatinine GFR Calculation 3 Glucose 240 H POC Glucose Calcium 9.2 POC WB Ioniz Calcium Total Bilirubin 0.3 AST 23 ALT 22 Alkaline Phosphatase 104 Troponin T 0.40 H* Total Protein 7.2 Albumin 3.5 Globulin 3.7 Albumin/Globulin Ratio 0.9 L Urine Color Urine Appearance Urine pH Ur Specific [place] Urine Protein Urine Glucose (UA) Urine Ketones Urine Occult Blood Urine Nitrate Urine Bilirubin Urine Urobilinogen Ur Leukocyte Esterase Urine RBC Urine WBC Ur Squamous Epith Cells Urine Bacteria Ur Culture Indicated? A/P Assessment and plan (1) ESRD (end stage renal disease) on dialysis: Status: Acute (2) Anemia in chronic kidney disease: Status: Chronic (3) Diabetes mellitus, type II: Status: Chronic (4) Hypertension, essential: Status: Chronic (5) Hyperlipidemia: Status: Chronic (6) Acute UTI (urinary tract infection): Status: Acute (7) Atrial fibrillation, permanent: Status: Acute Narrative A/P Narrative: Assessment and Plans: 1. Uremia in face of ESRD on peritoneal dialysis, with associated anemia: Admit to inpatient med surg telemetry Consult Dr. Kumar transmission repairer for peritoneal needs CMP in the morning to trend kidney functions cbc w/ auto diff in the morning to trend H/H 2. UTI: Procalcitonin Blood culture Urine culture cbc w/ auto diff in the morning to trend WBC level Rocephin Tylenol PRN fever 3. Permanent atrial fibrillation with RVR: [id number] score of 5, needs to verify with patient and family if she was on anticoagulation therapy; Heparin for now Rate control with Lopressor IV PRN tachyarrhythmia Verify with patient and family whether she was taking beta jane/Cardi zem/Digoxin for rate control; not on her current home med list 4. T2DM: HgA1c Basal, meal time, and SSI Accu Chek AC HS Hypoglycemia protocol Diabetic diet 5. h/o essential HTN: Currently low-normal blood pressure No antihypertensives on her current home med list, need to verify 6. Mixed dyslipidemia: Continue statin therapy GI ppx: not currently indicated DVT: Heparin Code status: Full Prognosis: guarded Disposition: inpatient med surg telemetry; physical and occupational therapy Time Spent With Patient Time: Total time spent is greater than 50% in coordination of care (as documented) at patient's floor/unit and/or counseling patient: Total time spent with greater than 50% in coordination of care (as documented) at patient's floor/unit and/or counseling patient:: Greater than 35 minutes
[2021-11-16] MEDS ORDERED: oxyCODONE HCL 5 MG TABLET PO PRN (10:45)
[2021-11-16] MEDS ORDERED: DEXTROSE 50% 50 ML VIAL IV PRN (10:45)
[2021-11-16] MEDS ORDERED: ACETAMINOPHEN 325 MG TABLET PO PRN (10:45)
[2021-11-16] MEDS ORDERED: cefTRIAXone 1 GM in DEXTROSE 5% IN WATER 50 ML IV SCH (10:45)
[2021-11-16] MEDS ORDERED: DEXTROSE 31 GM ORAL.SUSP PO PRN (10:45)
[2021-11-16] MEDS ORDERED: ZOLPIDEM 5 MG TABLET PO PRN (10:45)
[2021-11-16] MEDS ORDERED: IPRATROPIUM/ALBUTEROL 3 ML AMPUL.NEB NEB PRN (10:45)
[2021-11-16] MEDS: INSULIN LISPRO 1 UNIT/0.01 ML UNIT SQ SCH ×5 (11:54→21:33)
[2021-11-16] MEDS: CALCIUM CARBONATE 500 MG TAB.CHEW CHEWED SCH ×2 (12:02→17:07)
[2021-11-16 13:24] LABS: Hemoglobin A1C 9.8 % Hgb (4.0-6.0)
[2021-11-16] MEDS: morphine 2 MG/ML VIAL IV PRN (14:12)
[2021-11-16] MEDS: cefTRIAXone 1 GM VIAL IV SCH (14:15)
[2021-11-16] MEDS: 0.9 % SODIUM CHLORIDE 10 ML SYRINGE IV SCH ×2 (14:15→21:35)
[2021-11-16] MEDS: INSULIN GLARGINE, HUMAN 1 UNIT/0.01 ML SQ SCH (21:32)
[2021-11-16] MEDS: HEPARIN 5,000 UNIT/ML VIAL SQ SCH (21:33)
[2021-11-16] MEDS: ATORVASTATIN 20 MG TABLET PO SCH (21:34)
[2021-11-16] MEDS: clonazePAM 1 MG TABLET PO SCH (21:34)
[2021-11-16] MEDS: SENNOSIDES 1 TABLET PO SCH (21:35)
[2021-11-16] MEDS: DOCUSATE SODIUM 100 MG CAPSULE PO SCH (21:36)
[2021-11-17] MEDS: 0.9 % SODIUM CHLORIDE 10 ML SYRINGE IV SCH ×2 (04:02→13:56)
[2021-11-17] MEDS: CALCIUM CARBONATE 500 MG TAB.CHEW CHEWED SCH ×3 (07:35→17:15)
[2021-11-17] MEDS: INSULIN LISPRO 1 UNIT/0.01 ML UNIT SQ SCH ×6 (07:41→17:25)
[2021-11-17 08:26] LABS: Basophils # (Auto) 0.04 K/mcL (0.00-0.30); Basophils % (Auto) 0.3 % (0.0-2.0); Eosinophils # (Auto) 0.05 K/mcL (0.00-0.70); Eosinophils % (Auto) 0.3 % (0.0-7.0); Hematocrit 31.5 % (34.1-44.9); Hemoglobin 9.9 g/dL (11.2-15.7); Lymphocytes % (Auto) 11.3 % (15.5-49.0); Mean Cell Volume 105.4 fL (80.0-100.0); Mean Corpuscular HGB Conc 31.4 g/dL (31.0-36.0); Mean Platelet Volume 9.8 fL (7.4-10.4); Monocytes # (Auto) 0.72 K/mcL (0.10-0.90); Monocytes % (Auto) 4.8 % (1.0-12.0); Neutrophils % (Auto) 83.3 % (38.0-78.0); Platelet Count 318 K/mcL (140-440); RBC 2.99 M/mcL (3.59-5.38); Red Cell Distribution Width 12.8 % (11.5-14.5); WBC 15.1 K/mcL (4.5-11.0)
[2021-11-17] MEDS ORDERED: CYANOCOBALAMIN (VITAMIN B-12) 500 MCG TABLET PO SCH (09:00)
[2021-11-17] MEDS ORDERED: sitaGLIPtin 50 MG TABLET PO SCH (09:00)
[2021-11-17 09:54] LABS: Phosphorous 14.1 mg/dL (2.5-4.5)
[2021-11-17 09:55] LABS: ALT/SGPT 138 U/L (<40); AST/SGOT 172 U/L (<32); Albumin 3.1 gm/dL (3.2-5.2); Albumin/Globulin Ratio 0.8 (1.0-2.3); Alkaline Phosphatase 101 U/L (39-117); Bilirubin,Total 0.2 mg/dL (0.1-1.0); Blood Urea Nitrogen 89 mg/dL (8-23); Calcium 9.7 mg/dL (8.6-10.4); Carbon Dioxide 20 mmol/L (22-30); Chloride 91 mmol/L (96-108); Globulin 3.7 gm/dL (2.2-3.7); Glomerular Filtration Rate 3; Glucose 218 mg/dL (70-105)
[2021-11-17] MEDS: DOCUSATE SODIUM 100 MG CAPSULE PO SCH (09:55)
[2021-11-17] MEDS: HEPARIN 5,000 UNIT/ML VIAL SQ SCH (09:56)
--- NOTE | 2021-11-17 10:13 | Nephrology Progress Note ---
SUBJECTIVE Subjective Patient information: Note initiated : 11/17/21 at 10:12 am Patient: Debra Walker 76 y/o F admitted on 11/16/21 for Weakness. Chief Complaint: Weakkness Pertinent ROS: Epigastric/Lower midsternum discomfort No other pain Weakness Constitutional Vitals: Vital Signs Temp Pulse Resp BP Pulse Ox 97.9 F 92 H 19 91/58 90 11/17/21 06:43 11/17/21 06:43 11/17/21 06:43 11/17/21 06:43 11/17/21 06:54 Period Temp Pulse Resp BP Sys/Horn Pulse Ox Last 24 Hr 96.2 F-97.9 F 91-106 14-20 90-124/42-67 90-97 Intake and Output 11/16/21 11/17/21 11/17/21 21:59 05:59 13:59 Intake Total 300 100 Output Total 175 Balance 125 100 Weight 204 lb Intake & Output: Intake & Output 11/16/21 11/17/21 11/17/21 21:59 05:59 13:59 Intake Total 300 100 Output Total 175 Balance 125 100 Weight 204 lb Intake: Oral 300 100 Output: Emesis 175 General appearance: cooperative and no acute distress Head Head exam: Present normal inspection Eye Eye exam: Present normal appearance ENT ENT exam: Present mucous membranes moist Respiratory Respiratory exam: Absent respiratory distress Cardiovascular Cardiovascular exam: Present normal rate and rhythm GI/Abdominal GI/Abdominal exam: Present soft; Absent tenderness Extremities Exam Extremities exam: Absent joint swelling or pedal edema Neurological Exam Neurological exam: Present alert and oriented X3 Psychiatric Psychiatric exam: Present normal affect and normal mood Skin Skin exam: Present warm; Absent rash A/P Assessment and plan (1) End-stage renal disease on peritoneal dialysis: Assessment and plan: Debra Walker is a 76-year-old female with end stage renal disease on peritoneal dialysis, chronic anemia due to ESRD, hypertension, diabetes mellitus type 2, atrial fibrillation admitted on 11/16/21. She presented to [facility] ED for weakness, dizziness, diarrhea. Her initial BP 98/64, HR 140. She received 500 ml IV fluids. Nephrology consultation was requested for end stage renal disease. End stage renal disease on peritoneal dialysis. She missed several CCPD recently due to ongoing symptoms. Her labs indicate inadequate dialysis clearance. Chronic anemia due to ESRD. Hyponatremia, resolved. Metabolic acidosis. Hyperphosphatemia. Atrial fibrillation with RVR. Elevated Troponin. Suspected acute coronary syndrome. Abdominal pain. Suspected acute infection, possible acute cystitis. Blood and urine cultures have no growth so far. Persistent leukocytosis. Elevated liver enzymes, possible acute ischemia. No bowel ischemia reported on CT. Workup: CT Abdomen and Pelvis on 11/15/21: Moderate free fluid in the pelvis with smaller amounts in the paracolic gutter, perihepatic and perisplenic regions. This is new from the previous study. In addition, there is a [id number] amount of free intraperitoneal gas in the epigastric region. While this may all be due to the peritoneal dialysis procedure, the possibility of a secondary process such as bowel perforation or bacterial peritonitis should be entertained. Suggest ultrasound-guided paracentesis. Both kidneys show bilateral lobulation with scattered cysts in both kidneys. No change. Mild bilateral adrenal hyperplasia more prominent on the left. Stable. Nonobstructing stones within the superior calyx of the right kidney both less than 3 mm. A 3 mm nonobstructing stone mid calyx right kidney. New cluster of 4-5 low-attenuation lesions in the hector hepatis ranging up to 18 mm. These measure fat attenuation likely represent concentrated fat in the hector hepatis. Consider: abdominal ultrasound to evaluate these hepatic lesions and also all renal lesions to ensure that all lesions are cystic and not solid. CXR on 11/15/21: Normal chest. Labs on 11/15/21: Urinalysis sushma, cloudy, pH 5.0, SG 1.025, protein 100, blood negative, leukocyte esterase 75, urine culture pending. Labs on 11/15/21: WBC 12.9, hemoglobin 10.6, PLT 327, serum sodium 131, potassium 4.9, CO2 17, creatinine 11.3, calcium 9.2, troponin T 0.4. Recommendations/Plan: No need for paracentesis. She has an intraperitoneal catheter. Sevelamer 2,400 mg by mouth with meals added to Calcium Carbonate 1,500 mg by mouth with meals for hyperphosphatemia. Continue CCPD nightly (1.5%-12L; 10 hours, 6 exchanges, 2L fill volume, 300 ml last fill). Echocardiogram ordered. Possible need for cardiology evaluation for elevated Troponin, suspected acute coronary syndrome. Status: Chronic (2) Hyponatremia: Status: Acute (3) Metabolic acidosis: Status: Acute Time Spent With Patient Time: Total time spent is greater than 50% in coordination of care (as documented) at patient's floor/unit and/or counseling patient:
[2021-11-17] MEDS: cefTRIAXone 1 GM VIAL IV SCH (10:36)
[2021-11-17] MEDS: INSULIN GLARGINE, HUMAN 1 UNIT/0.01 ML SQ SCH (10:39)
--- NOTE | 2021-11-17 11:11 | EKG ---
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
--- NOTE | 2021-11-17 11:15 | EKG ---
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
[2021-11-17] MEDS: SEVELAMER 800 MG TABLET PO SCH ×2 (12:08→17:16)
[2021-11-17] MEDS: ONDANSETRON 4 MG/2 ML VIAL IV PRN ×2 (12:14→20:17)
[2021-11-17] MEDS ORDERED: CALCIUM CARBONATE 500 MG TAB.CHEW CHEWED PRN (13:54)
--- NOTE | 2021-11-17 13:58 | Internal Med Progress Note ---
SUBJECTIVE Subjective Patient information: Note initiated : 11/17/21 at 1:55 pm Service Date, if different from initiated Date: [] Patient: Debra Walker 76 y/o F admitted on 11/16/21 for Weakness. Chief Complaint: [] Interval history: Ms. Walker is a 76 year old F history of ESRD on PD, T2DM, atrial fibrillation, essential HTN, mixed dyslipidemia, p/w 3 days history of general body weakness, nausea, vomiting, epigastric abdominal pain, and decreased appetite. She was originally on hemodialysis, and was being switched to peritoneal dialysis about 6 months ago. She was in her usual state of health until 3 days ago when she developed general body weakness, nausea, vomiting, epigastric abdominal pain, and decreased appetite. Denies fever, chills, or sweating. Denies shortness of breath. Denies urinary symptoms such as dysuria, change in urinary frequency or urgency. ED labs suggestive of uremia and UTI. 11/17: Afebrile overnight. s/p peritoneal dialysis overnight. c/o nausea and vomiting. c/o poor appetite. c/o substernal chest pain, mild, sharp, intermittent, exacerbated by food consumption and taking a deep breath. Constitutional Vitals: Vital Signs Temp Pulse Resp BP Pulse Ox 36.1 C 82 17 96/60 93 11/17/21 11:43 11/17/21 11:43 11/17/21 11:43 11/17/21 11:43 11/17/21 11:43 Period Temp Pulse Resp BP Sys/Horn Pulse Ox Last 24 Hr 35.7 C-36.6 C 82-106 14-20 91-124/58-67 90-97 Intake and Output 11/16/21 11/17/21 11/17/21 21:59 05:59 13:59 Intake Total 300 100 Output Total 175 Balance 125 100 Weight 92.533 kg Intake & Output: Intake & Output 11/16/21 11/17/21 11/17/21 21:59 05:59 13:59 Intake Total 300 100 Output Total 175 Balance 125 100 Weight 92.533 kg Intake: Oral 300 100 Output: Emesis 175 Other: Stool Size Moderate Stool Consistency Loose # Voids 1 # Unmeasured Emesis 1 General appearance: cooperative, no acute distress and obese Head Head exam: Present atraumatic and normal inspection Eye Eye exam: Present normal appearance ENT ENT exam: Present mucous membranes moist, normal exam and normal external ear exam Neck Neck exam: Present normal inspection Respiratory Respiratory exam: Present normal respiratory exam Cardiovascular Cardiovascular exam: Present irregular rhythm GI/Abdominal GI/Abdominal exam: Present normal bowel sounds Additional comments: Peritoneal dialysis catheter in place Back Exam Back exam: Present normal inspection Neurological Exam Neurological exam: Present alert and oriented X3 Skin Skin exam: Present intact and warm OBJ DATA Labs CBC & Chem 7: 11/17/21 06:45 11/17/21 06:45 Labs: Abnormal Lab Results 11/17/21 11/17/21 11/16/21 06:45 06:45 11:44 WBC 15.1 H RBC 2.99 L Hgb 9.9 L Hct 31.5 L POC Hct MCV 105.4 H MCH Neut % (Auto) 83.3 H Lymph % (Auto) 11.3 L Absolute Neutrophils 12.58 H POC Sodium Sodium POC Chloride Chloride 91 L Carbon Dioxide 20 L POC Total CO2 Anion Gap 24.0 H POC BUN BUN 89 H Creatinine 10.1 H* POC Creatinine Glucose 218 H POC Glucose Hemoglobin A1c 9.8 H POC WB Ioniz Calcium Phosphorus 14.1 H* AST 172 H ALT 138 H Troponin T Albumin 3.1 L Albumin/Globulin Ratio 0.8 L Urine Appearance Urine Protein Urine Ketones Ur Leukocyte Esterase Urine Bacteria 11/16/21 11/15/21 11/15/21 11:44 22:12 20:00 WBC RBC Hgb Hct POC Hct MCV MCH Neut % (Auto) Lymph % (Auto) Absolute Neutrophils POC Sodium Sodium POC Chloride Chloride Carbon Dioxide POC Total CO2 Anion Gap POC BUN BUN Creatinine POC Creatinine Glucose POC Glucose Hemoglobin A1c POC WB Ioniz Calcium Phosphorus AST ALT Troponin T 0.42 H* 0.40 H* Albumin Albumin/Globulin Ratio Urine Appearance Cloudy A Urine Protein 100 A Urine Ketones 5 A Ur Leukocyte Esterase 75 A Urine Bacteria Few A 11/15/21 11/15/21 11/15/21 19:15 19:15 19:15 WBC RBC Hgb Hct POC Hct 32 L MCV MCH Neut % (Auto) Lymph % (Auto) Absolute Neutrophils POC Sodium 131 L Sodium 131 L POC Chloride 94 L Chloride 84 L Carbon Dioxide 17 L POC Total CO2 20 L Anion Gap 30.0 H POC BUN 114 H* BUN 96 H Creatinine 11.3 H* POC Creatinine 11.9 H* Glucose 240 H POC Glucose 224 H Hemoglobin A1c POC WB Ioniz Calcium 1.02 L Phosphorus AST ALT Troponin T 0.40 H* Albumin Albumin/Globulin Ratio 0.9 L Urine Appearance Urine Protein Urine Ketones Ur Leukocyte Esterase Urine Bacteria 11/15/21 19:15 WBC 12.9 H RBC 3.03 L Hgb 10.6 L Hct 31.6 L POC Hct MCV 104.3 H MCH 35.0 H Neut % (Auto) Lymph % (Auto) Absolute Neutrophils 9.93 H POC Sodium Sodium POC Chloride Chloride Carbon Dioxide POC Total CO2 Anion Gap POC BUN BUN Creatinine POC Creatinine Glucose POC Glucose Hemoglobin A1c POC WB Ioniz Calcium Phosphorus AST ALT Troponin T Albumin Albumin/Globulin Ratio Urine Appearance Urine Protein Urine Ketones Ur Leukocyte Esterase Urine Bacteria Meds: Medications Acetaminophen (Acetaminophen 325 Mg Tablet) 650 mg PO Q6HP PRN; Protocol PRN Reason: Per Pain Protocol/Fever > 101 Albuterol/Ipratropium (Ipratropium/Albuterol 3 Ml Ampul.Neb) 3 ml NEB Q4HRT PRN PRN Reason: Wheezing Atorvastatin Calcium (Atorvastatin 20 Mg Tablet) 20 mg PO QHS [facility] Last Admin: 11/16/21 21:34 Dose: 20 mg Documented by: Calcium Carbonate/Glycine (Calcium Carbonate 500 Mg Tab.Chew) 1,500 mg CHEWED TIDCC [facility] Last Admin: 11/17/21 11:55 Dose: 1,500 mg Documented by: Calcium Carbonate/Glycine (Calcium Carbonate 500 Mg Tab.Chew) 1,000 mg CHEWED Q4HP PRN PRN Reason: Dyspepsia Ceftriaxone Sodium (Ceftriaxone 1 Gm Vial) 1 gm IV Q24H [facility] Last Admin: 11/17/21 10:36 Dose: 1 gm Documented by: Clonazepam (Clonazepam 1 Mg Tablet) 1 mg PO QHS [facility] Last Admin: 11/16/21 21:34 Dose: 1 mg Documented by: Cyanocobalamin (Cyanocobalamin (Vitamin B-12) 500 Mcg Tablet) 500 mcg PO DAILY [facility] Last Admin: 11/17/21 09:55 Dose: 500 mcg Documented by: Dextrose (Dextrose 50% 50 Ml Vial) 0 ml IV UD PRN PRN Reason: Hypoglycemia Diagnostic Test (Pha) (Accu-Chek 1 Each Strip) 1 each FS ACHS [facility] Last Admin: 11/17/21 11:49 Dose: 1 each Documented by: Docusate Sodium (Docusate Sodium 100 Mg Capsule) 100 mg PO BID [facility] Last Admin: 11/17/21 09:55 Dose: Not Given Documented by: Gentamicin Sulfate (Gentamicin Crm 0.1% Tube 15gm) 1 dose TOPICAL TuThSa@1000 [facility]; Protocol Last Admin: 11/16/21 14:17 Dose: 1 dose Documented by: Glucose (Dextrose 31 Gm Oral.Susp) 15 gm PO PRN PRN PRN Reason: Hypoglycemia Heparin Sodium (Porcine) (Heparin 5,000 Unit/Ml Vial) 5,000 unit SQ Q12 [facility] Last Admin: 11/17/21 09:56 Dose: 5,000 unit Documented by: Insulin Glargine (Insulin Glargine, Human 1 Unit/0.01 Ml) 76 unit SQ BID [facility] Last Admin: 11/17/21 10:39 Dose: 76 units Documented by: Insulin Human Lispro (Insulin Lispro 1 Unit/0.01 Ml Unit) 5 unit SQ TIDAC [facility] Last Admin: 11/17/21 12:24 Dose: Not Given Documented by: Insulin Human Lispro (Insulin Lispro 1 Unit/0.01 Ml Unit) 0 unit SQ [facility]; Protocol Last Admin: 11/17/21 12:24 Dose: Not Given Documented by: Morphine Sulfate (Morphine 2 Mg/Ml Vial) 2 mg IV Q4HP PRN; Protocol PRN Reason: Per Pain Protocol Last Admin: 11/16/21 14:12 Dose: 2 mg Documented by: Ondansetron HCl (Ondansetron 4 Mg/2 Ml Vial) 4 mg IV Q6HP PRN PRN Reason: Nausea And Vomiting Last Admin: 11/17/21 12:14 Dose: 4 mg Documented by: Oxycodone HCl (Oxycodone Hcl 5 Mg Tablet) 5 mg PO Q4-6HP PRN; Protocol PRN Reason: Per Pain Protocol Last Admin: 11/16/21 12:17 Dose: 5 mg Documented by: Senna (Sennosides 1 Tablet) 2 tab PO HS [facility] Last Admin: 11/16/21 21:35 Dose: 2 tab Documented by: Sevelamer Carbonate (Sevelamer 800 Mg Tablet) 2,400 mg PO TIDCC [facility] Last Admin: 11/17/21 12:08 Dose: 2,400 mg Documented by: Sitagliptin Phosphate (Sitagliptin 50 Mg Tablet) 25 mg PO DAILY [facility] Last Admin: 11/17/21 09:55 Dose: 25 mg Documented by: Sodium Chloride (0.9 % Sodium Chloride 10 Ml Syringe) 10 ml IV Q8 [facility] Last Admin: 11/17/21 04:02 Dose: 10 ml Documented by: Zolpidem Tartrate (Zolpidem 5 Mg Tablet) 5 mg PO HSP PRN PRN Reason: Insomnia A/P Assessment and plan (1) ESRD (end stage renal disease) on dialysis: Status: Acute (2) Anemia in chronic kidney disease: Status: Chronic (3) Diabetes mellitus, type II: Status: Chronic (4) Hypertension, essential: Status: Chronic (5) Hyperlipidemia: Status: Chronic (6) Acute UTI (urinary tract infection): Status: Acute (7) Atrial fibrillation, permanent: Status: Acute (8) Elevated troponin: Status: Acute (9) Chest pain: Status: Acute Narrative A/P Narrative: Assessment and Plans: 1. Uremia in face of ESRD on peritoneal dialysis, with associated anemia: Stays in inpatient med surg telemetry Consult Dr. Kumar torch brazer for peritoneal needs CMP in the morning to trend kidney functions cbc w/ auto diff in the morning to trend H/H 2. UTI: Procalcitonin Blood culture, no growth to date Urine culture, no growth to date cbc w/ auto diff in the morning to trend WBC level Rocephin Tylenol PRN fever 3. Permanent atrial fibrillation with RVR: [id number] score of 5, needs to verify with patient and family if she was on anticoagulation therapy; Heparin for now Rate control with Lopressor IV PRN tachyarrhythmia Verify with patient and family whether she was taking beta jane/Cardizem/Digoxin for rate control; not on her current home med list 4. T2DM: HgA1c 9.8 Basal, meal time, and SSI Accu Chek AC HS Hypoglycemia protocol Diabetic diet 5. h/o essential HTN: Currently low-normal blood pressure No antihypertensives on her current home med list, need to verify 6. Mixed dyslipidemia: Continue statin therapy 7. Elevated troponin levels, chest pain: Serial troponin 0.40, 0.40, 0.42 DDx: ACS, GI such as GERD, uremic pericarditis TUMS for GERD Repeat 12 leads ECG to rule out ACS Treat uremic pericarditis with ongoing dialysis GI ppx: not currently indicated DVT: Heparin Code status: Full Prognosis: guarded Disposition: inpatient med surg telemetry; physical and occupational therapy Time Spent With Patient Time: Total time spent is greater than 50% in coordination of care (as documented) at patient's floor/unit and/or counseling patient: Total time spent with greater than 50% in coordination of care (as documented) at patient's floor/unit and/or counseling patient:: Greater than 35 minutes
--- NOTE | 2021-11-17 14:34 | EKG ---
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 Measurements Intervals [place] Rate: 102 P: [place]: QRS: 35 QRSD: 129 T: 113 QT: 373 QTc: 486 Interpretive Statements Atrial fibrillation Right bundle branch block Inferior infarct, acute (RCA) Probable RV involvement, suggest recording right precordial leads Electronically Signed On 11-17-2021 14:34:12 PST by Kailash Bello M.D. /store/[email or web address]/[id number]
[2021-11-17] MEDS ORDERED: NITROGLYCERIN 0.4 MG TAB.SUBL SL PRN (20:15)
[2021-11-17] MEDS ORDERED: ASPIRIN 81 MG TAB.CHEW CHEWED ONE (20:15)
[2021-11-17] MEDS: morphine 2 MG/ML VIAL IV PRN (20:18)
[2021-11-17] MEDS ORDERED: ASPIRIN 81 MG TAB.CHEW ONE (20:28)
[2021-11-17] MEDS ORDERED: MONTELUKAST 10 MG TABLET PO SCH (21:00)
[2021-11-17 21:09] LABS: Basophils # (Auto) 0.05 K/mcL (0.00-0.30); Basophils % (Auto) 0.3 % (0.0-2.0); Eosinophils # (Auto) 0.11 K/mcL (0.00-0.70); Eosinophils % (Auto) 0.7 % (0.0-7.0); Hematocrit 29.4 % (34.1-44.9); Hemoglobin 9.5 g/dL (11.2-15.7); Lymphocytes % (Auto) 10.5 % (15.5-49.0); Mean Cell Volume 103.9 fL (80.0-100.0); Mean Corpuscular HGB Conc 32.3 g/dL (31.0-36.0); Mean Platelet Volume 10.2 fL (7.4-10.4); Monocytes # (Auto) 0.74 K/mcL (0.10-0.90); Monocytes % (Auto) 4.9 % (1.0-12.0); Neutrophils % (Auto) 83.6 % (38.0-78.0); Platelet Count 284 K/mcL (140-440); RBC 2.83 M/mcL (3.59-5.38); Red Cell Distribution Width 12.8 % (11.5-14.5); WBC 15.3 K/mcL (4.5-11.0)
[2021-11-17 21:31] LABS: Creatine Kinase MB 75.9 ng/mL (<3.7)
[2021-11-17 21:33] LABS: Creatine Kinase 458 U/L (24-170)
[2021-11-17 21:42] LABS: ALT/SGPT 141 U/L (<40); AST/SGOT 123 U/L (<32); Albumin 3.3 gm/dL (3.2-5.2); Alkaline Phosphatase 100 U/L (39-117); Bilirubin,Total 0.3 mg/dL (0.1-1.0); Blood Urea Nitrogen 96 mg/dL (8-23); Calcium 10.3 mg/dL (8.6-10.4); Carbon Dioxide 23 mmol/L (22-30); Chloride 91 mmol/L (96-108); Globulin 3.3 gm/dL (2.2-3.7); Glomerular Filtration Rate 4; Glucose 154 mg/dL (70-105)
[2021-11-17] MEDS ORDERED: CLOPIDOGREL 300 MG TABLET PO ONE (22:49)
[2021-11-17] MEDS ORDERED: ATORVASTATIN 40 MG TABLET PO ONE (22:51)
[2021-11-17] MEDS ORDERED: ALTEPLASE IV ONE (22:52)
[2021-11-17] MEDS ORDERED: HEPARIN SOD,PORK IN 0.45% NACL 25,000 UNIT in PREMIX 1 BAG IV SCH (23:00)
[2021-11-17] MEDS ORDERED: ATORVASTATIN 40 MG TABLET ONE (23:02)
[2021-11-17] MEDS ORDERED: HEPARIN 5,000 UNIT/ML VIAL ONE (23:02)
[2021-11-17] MEDS ORDERED: HEPARIN SOD,PORK IN 0.45% NACL 500 ML IV ONE (23:16)
--- NOTE | 2021-11-17 23:18 | Discharge Summary ---
Discharge Provider Provider Patient information: Note initiated : 11/17/21 at 11:05 pm Service Date, if different from initiated Date: [] Patient: Debra Walker 76 y/o F admitted on 11/16/21 for Weakness. Chief Complaint: [] Date of admission: 11/16/21 01:26 Discharge date: 11/17/21 Primary care physician: Praveen Irby Attending physician on admission: Cem Mcbride Consults: 11/16/21 Consult to Physician [CONS] Stat Comment: Consulting Provider: Cem Mcbride Reason For Exam: Physician to Consult 11/16/21 10:45 Consult to Physician [CONS] Routine Comment: Consulting Provider: Ean Kumar Reason For Exam: Physician to Consult Attending physician on discharge: Cem Mcbride Discharge Meds Discharge Medications Home Medications sitagliptin 25 mg tablet (Januvia) 25 mg PO QDAY #30 tab 11/16/20 [Rx Confirmed 11/17/21 Last Taken 11/17/21 09:00] insulin detemir U-100 100 unit/mL (3 mL) subcutaneous pen (Levemir FlexTouch U- 100 Insulin) 60 unit SUB-Q BID 07/26/21 [History Confirmed 11/17/21 Last Taken 11/17/21 09:00] clonazepam 1 mg tablet 1 mg PO QHS #60 tab 08/08/21 [Rx Confirmed 11/17/21 Last Taken 11/16/21 21:00] gentamicin 0.1 % topical cream 1 applic TOPICAL .three times a week #30 g 09/19/21 [Rx Confirmed 11/17/21 Last Taken 11/16/21 16:00] insulin lispro 100 unit/mL subcutaneous solution 5 unit SUBCUT TID 10/06/21 [History Confirmed 11/17/21 Last Taken 11/17/21 09:00] atorvastatin 20 mg tablet 20 mg PO QHS #30 tab 11/14/21 [Rx Confirmed 11/17/21 Last Taken 11/14/21] calcium carbonate 500 mg capsule 1,500 mg PO .TID with meals cap 11/14/21 [History Confirmed 11/17/21 Last Taken 11/17/21 12:00] calcium acetate(phosphat bind) 667 mg capsule 2,001 mg PO TID 11/17/21 [History Confirmed 11/17/21 Last Taken 11/12/21 09:00] cholecalciferol (vitamin D3) 125 mcg (5,000 unit) capsule 125 mcg PO DAILY 11/17/21 [History Confirmed 11/17/21 Last Taken 11/14/21 08:00] montelukast 10 mg tablet 10 mg PO QHS 11/17/21 [History Confirmed 11/17/21 Last Taken 11/14/21 21:00] COURSE Hospital Course Hospital course: Patient was admitted on November 16, 2021 for worsening uremia from under dialysis for end-stage renal disease. A R Specialist was consulted for assistance of the peritoneal dialysis. Of note, her presenting serum troponin level was 0.40. At time of admissions, she denies any chest pain. Vital signs within normal limits. Serial troponin was 0.40, 0.40, and 0.42. By the afternoon of day two hospitalizations, patient was complaining of substernal chest pain. ECG showed ST elevation of leads II, and III. I called clinical support associate Dr. Thomas from [facility] in [place], [place]. He at that time thought it was uremic pericarditis, and only recommendation was 2D echocardiogram. At around 2029 on day 2 hospitalization, chest pain recurred. Repeat troponin at this time was 2.01. Repeat ECG still showed ST elevation in leads II or III. A right sided ECG was performed and it showed ST elevation in leads V3, 4, 5 and 6. Morphine, Aspirin, and supplemental oxygen therapy were all given. Dr. Adam from [facility] in [place] was consulted and notified and diagnosis of STEMI was made. 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 Discharge diagnosis: STEMI Time Spent with Patient Time attestation: Total time spent providing and/or coordinating discharge services: Time spent: Greater than 30 minutes EXAM Constitutional Vitals: Temp Pulse Resp BP Pulse Ox 36.4 C 103 H 18 117/63 99 11/17/21 20:00 11/17/21 20:15 11/17/21 20:00 11/17/21 20:00 11/17/21 20:15 General appearance: cooperative and no acute distress Head Head exam: Present atraumatic and normocephalic Eye Eye exam: Present EOMI and PERRL ENT ENT exam: Present mucous membranes moist, normal exam and normal external ear exam Neck Neck exam: Present normal inspection; Absent lymphadenopathy, tenderness or thyromegaly Respiratory Respiratory exam: Absent accessory muscle use, respiratory distress or wheezes Cardiovascular Cardiovascular exam: Present irregular rhythm; Absent JVD GI/Abdominal GI/Abdominal exam: Present normal bowel sounds and soft; Absent organomegaly or tenderness Extremities Exam Extremities exam: Present full ROM, normal capillary refill and normal inspection; Absent tenderness Neurological Exam Neurological exam: Present alert, CN II-XII intact and oriented X3; Absent motor sensory deficit Psychiatric Psychiatric exam: Present normal affect and normal mood; Absent anxious or depressed Skin Skin exam: Present dry and intact Discharge Data Data Completed and Pending Labs on day of discharge: Labs from last 24 hours 11/17/21 11/17/21 11/17/21 20:25 20:25 20:24 WBC 15.3 H RBC 2.83 L Hgb 9.5 L Hct 29.4 L MCV 103.9 H MCH 33.6 MCHC 32.3 RDW 12.8 Plt Count 284 MPV 10.2 Neut % (Auto) 83.6 H Lymph % (Auto) 10.5 L [place] % (Auto) 4.9 Eos % (Auto) 0.7 Baso % (Auto) 0.3 Lymph # (Auto) 1.60 [place] # (Auto) 0.74 Eos # (Auto) 0.11 Baso # (Auto) 0.05 Absolute Neutrophils 12.75 H APTT 30.7 Sodium Potassium Chloride Carbon Dioxide Anion Gap BUN Creatinine GFR Calculation Glucose Calcium Phosphorus Magnesium Total Bilirubin AST ALT Alkaline Phosphatase Total Creatine Kinase CK-MB (CK-2) Troponin T 2.01 H* Total Protein Albumin Globulin Albumin/Globulin Ratio Hold Red Top 11/17/21 11/17/21 11/17/21 20:24 06:45 06:45 WBC 15.1 H RBC 2.99 L Hgb 9.9 L Hct 31.5 L MCV 105.4 H MCH 33.1 MCHC 31.4 RDW 12.8 Plt Count 318 MPV 9.8 Neut % (Auto) 83.3 H Lymph % (Auto) 11.3 L [place] % (Auto) 4.8 Eos % (Auto) 0.3 Baso % (Auto) 0.3 Lymph # (Auto) 1.70 [place] # (Auto) 0.72 Eos # (Auto) 0.05 Baso # (Auto) 0.04 Absolute Neutrophils 12.58 H APTT Sodium 138 135 Potassium 4.5 4.5 Chloride 91 L 91 L Carbon Dioxide 23 20 L Anion Gap 24.0 H 24.0 H BUN 96 H 89 H Creatinine 9.7 H* 10.1 H* GFR Calculation 4 3 Glucose 154 H 218 H Calcium 10.3 9.7 Phosphorus 14.1 H* Magnesium 2.1 Total Bilirubin 0.3 0.2 AST 123 H 172 H ALT 141 H 138 H Alkaline Phosphatase 100 101 Total Creatine Kinase 458 H CK-MB (CK-2) 75.9 H Troponin T Total Protein 6.6 6.8 Albumin 3.3 3.1 L Globulin 3.3 3.7 Albumin/Globulin Ratio 1.0 0.8 L Hold Red Top Pending Preliminary micro results at discharge 11/15/21 20:00 Urine Culture - Preliminary Urine - Catheterized Enterococcus species 11/16/21 12:06 Blood Culture - Preliminary Blood 11/16/21 11:44 Blood Culture - Preliminary Blood Discharge Plan Patient/Caregiver Discharge Instructions Activity: increase activity as tolerated Diet: NPO Prescriptions: Continued Januvia 25 mg tablet 25 mg PO QDAY Qty: 30 11RF clonazepam 1 mg tablet 1 mg PO QHS Qty: 60 0RF Rx Instructions: administer 30 minutes before bedtime and 30 min before start of hemodialysis gentamicin 0.1 % cream 1 applic topical .three times a week Qty: 30 0RF calcium carbonate 500 mg capsule 1,500 mg PO .TID with meals 0RF Label Comments: Over the counter atorvastatin 20 mg tablet 20 mg PO QHS Qty: 30 11RF Levemir FlexTouch U-100 Insuln 100 unit/mL (3 mL) insulin pen 60 unit SUB-Q BID 0RF insulin lispro 100 unit/mL Solution 5 unit SUBCUT TID 0RF cholecalciferol (vitamin D3) 125 mcg (5,000 unit) Capsule 125 mcg PO DAILY 0RF montelukast 10 mg Tablet 10 mg PO QHS 0RF calcium acetate(phosphat bind) 667 mg Capsule 2,001 mg PO TID 0RF Discontinued ondansetron HCl [Zofran] 4 mg tablet 4 mg PO Q8H PRN (Reason: nausea and vomiting) Qty: 20 2RF allopurinol 300 mg Tablet 300 mg PO QDAY 0RF tramadol 50 mg Tablet 50 mg PO BID PRN (Reason: Pain) 0RF Follow Up Plan Follow up with: Praveen Irby DO [Primary Care Provider] - Patient Disposition: [facility] Prognosis: Serious Rehab Potential: Undetermined I certify that the patient requires SNF services: No Overall status at discharge: patient is progressing back to baseline Discharge Orders: Discharge Order (Routine); Ordered 11/17/21 Ordered By: Cem Mcbride
[2021-11-18] MEDS: INSULIN LISPRO 1 UNIT/0.01 ML UNIT SQ SCH (00:39)
[2021-11-18] MEDS: clonazePAM 1 MG TABLET PO SCH (00:39)
[2021-11-18] MEDS: DOCUSATE SODIUM 100 MG CAPSULE PO SCH (00:39)
[2021-11-18] MEDS: HEPARIN 5,000 UNIT/ML VIAL SQ SCH (00:39)
[2021-11-18] MEDS: 0.9 % SODIUM CHLORIDE 10 ML SYRINGE IV SCH (00:40)
[2021-11-18] MEDS: SENNOSIDES 1 TABLET PO SCH (00:40)
[2021-11-18] MEDS: ATORVASTATIN 20 MG TABLET PO SCH (00:40)
[2021-11-18] MEDS: INSULIN GLARGINE, HUMAN 1 UNIT/0.01 ML SQ SCH (00:40)
[2021-11-18] MEDS ORDERED: VITAMIN D3 125 MCG TABLET PO SCH (09:00)
--- NOTE | 2021-11-20 10:14 | EKG ---
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
--- NOTE | 2021-11-20 10:14 | EKG ---
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
== END 2021-11-17 23:47 | disposition short-term general hospital (02) | DRG 280 ==
LOC: ED 18:52 → MEDSUR 11-16 01:26 → ICU 11-17 20:50
PROVIDERS: ADMIT Internal Medicine; ATTEND Internal Medicine

== ENCOUNTER 2022-05-13 06:53 | Inpatient (IN) ==
--- NOTE | 2022-05-13 07:07 | Emergency Department Note ---
HPI General Chief complaint: Nausea/Vomiting/Diarrhea Stated complaint: N/V/D, headache Time Seen by Provider: 05/13/22 07:06 Source: patient and family Mode of arrival: wheelchair Limitations: no limitations History of Present Illness HPI Narrative: 76-year-old female with past medical history of ESRD on peritoneal dialysis presenting with nausea and vomiting since last night. She reports 8-10 episodes of nonbloody, nonbilious emesis since last night. Also with some loose stools. States she tried Pepto-Bismol at home with no improvement. Denies abdominal pain, fever, chest pain, cough, dysuria, hematuria, or shortness of breath. She did do peritoneal dialysis last night. She follows with Dr. Santana of nephrology. She has a history of nausea and vomiting and has follow-up with GI later this week. Has not taken anything except Pepto-Bismol. Related Data Home Medications Medication Instructions Recorded Confirmed allopurinol 300 mg tablet 1 tab PO QDAY 05/13/22 05/13/22 amiodarone 200 mg tablet 1 tab PO BID 05/13/22 05/13/22 amlodipine 5 mg-atorvastatin 40 mg 1 tab PO QDAY 05/13/22 05/13/22 tablet apixaban 5 mg tablet (Eliquis) 1 tab PO BID 05/13/22 05/13/22 atorvastatin 20 mg tablet 1 tab PO HS 05/13/22 05/13/22 calcium acetate(phosphat bind) 667 1 cap PO TID 05/13/22 05/13/22 mg capsule clonazepam 0.5 mg tablet 1 mg PO QDAY 05/13/22 05/13/22 diltiazem HCl 90 mg 2 cap PO BID 05/13/22 05/13/22 capsule,extended release 12 hr insulin detemir U-100 100 unit/mL 76 unit SUBCUT BID 05/13/22 05/13/22 (3 mL) subcutaneous pen (Levemir FlexTouch U-100 Insulin) lisinopril 40 mg tablet 1 tab PO BID 05/13/22 05/13/22 omeprazole 40 mg capsule,delayed 1 cap PO QDAY 05/13/22 05/13/22 release polysaccharide iron complex 150 mg 1 cap PO QDAY 05/13/22 05/13/22 iron capsule (Ferrex) sitagliptin 25 mg tablet (Januvia) 1 tab PO QDAY 05/13/22 05/13/22 tramadol 50 mg tablet 1 tab PO BID PRN 05/13/22 05/13/22 Previous Rx's Medication Instructions Recorded clopidogrel 75 mg tablet 75 mg PO QDAY #30 tab 12/19/21 melatonin 3 mg capsule 9 mg PO QHS #100 cap 12/19/21 ondansetron 4 mg disintegrating 4 mg PO Q8H PRN #12 tab 03/11/22 tablet gentamicin 0.1 % topical cream 1 applic TOPICAL .three times a 03/20/22 week #30 g insulin detemir U-100 100 unit/mL 62 unit (0.62 mL) SUB-Q BID #15 03/20/22 (3 mL) subcutaneous pen (Levemir syringe FlexTouch U-100 Insulin) metoprolol succinate 50 mg 50 mg PO QDAY #30 tab 03/20/22 tablet,extended release 24 hr metoclopramide HCl 5 mg tablet 5 mg PO TID PRN #20 tab 03/25/22 dicyclomine 10 mg capsule 10 mg PO TID PRN #14 cap 04/03/22 famotidine 20 mg tablet (Pepcid) 20 mg PO BID #60 tab 04/03/22 sucralfate 1 gram tablet (Carafate) 1 g PO QID #20 tab 04/03/22 Allergies Allergy/AdvReac Type Severity Reaction Status Date / Time No Known Drug Allergies Allergy Verified 05/13/22 15:38 Review of Systems ROS ROS Narrative: Narrative: Constitutional: Denies fever or chills ENT ED: Denies throat pain Cardiovascular: Denies chest pain or palpitations Respiratory: Denies shortness of breath or cough Gastrointestinal: Reports nausea, vomiting and diarrhea; Denies abdominal pain, hematochezia or melena Genitourinary: Denies dysuria or hematuria Musculoskeletal: Denies back pain or joint swelling Integumentary: Denies rash Neurological: Denies headache or weakness Psychiatric: Denies anxiety Hematological/Lymphatic: Denies easy bruising PFSH Narrative Patient History Narrative: Narrative: Medical/Surgical/Family History All Active Problems (Updated 05/13/22 @ 16:09 by Abril Last MD) Sepsis (Acute) Gastroenteritis (Acute) Nausea & vomiting (Acute) End-stage renal disease (ESRD) (Acute) Abdominal pain (Acute) Nausea & vomiting (Acute) Chronic vomiting (Acute) Renal failure treated with peritoneal dialysis (Acute) Hypokalemia (Acute) Nausea & vomiting (Acute) Abdominal pain (Acute) Diarrhea (Acute) Vomiting (Acute) Renal failure treated with peritoneal dialysis (Acute) Acute hypokalemia (Acute) Nausea, vomiting and diarrhea (Acute) Allergic rhinitis (Chronic) Anemia in chronic kidney disease (Chronic 11/26/13) Anxiety disorder (Chronic 10/26/13) Bladder spasm (Chronic) Late, effect, cerebrovascular disease (Chronic) Chronic fatigue syndrome (Chronic) Chronic kidney disease, stage IV (severe) (Chronic 11/26/13) Degenerative joint disease (Chronic) Dermatitis (Chronic 10/26/13) Diabetes mellitus, type II (Chronic) Fatigue (Chronic) Hyperlipidemia (Chronic) Hypertension, essential (Chronic) Hypertensive renal disease (Chronic 11/26/13) Hypertonicity of bladder (Chronic) 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) Dysmetabolic syndrome X (Chronic) Muscle weakness (generalized) (Chronic) Personal history of noncompliance with medical treatment (Chronic) Peripheral neuropathy (Chronic) Proteinuria (Chronic) Sleep apnea (Chronic) Personal history of transient ischemic attack (TIA) and cerebral infarction without residual deficit (Chronic) Vitamin D deficiency (Chronic) Obesity (BMI 30.0-34.9) (Chronic) Hyperparathyroidism due to renal insufficiency (Chronic) Chronic anticoagulation (Chronic) Heart murmur, systolic (Chronic) History of gout (Chronic) Chronic renal failure, stage 4 (severe) (Chronic) Encounter for monitoring chronic NSAID therapy (Acute) Dehydration (Acute) Uncontrolled type 2 diabetes mellitus with stage 4 chronic kidney disease, with long-term current use of insulin (Chronic) Chronic edema (Chronic) UTI symptoms (Chronic) Anemia in chronic kidney disease (Chronic) Difficulty swallowing pills (Acute) Anemia due to stage 5 chronic kidney disease treated with darbepoetin (Chronic) CKD (chronic kidney disease) stage 5, GFR less than 15 ml/min (Chronic) Nephrotic range proteinuria (Chronic) CKD stage 5 due to type 2 diabetes mellitus (Acute) Abn react-renal dialysis (Acute) Type 2 DM with hypertension and ESRD on dialysis (Acute) Anxiety attack (Acute) ESRD (end stage renal disease) on dialysis (Acute) Hyperparathyroidism due to ESRD on dialysis (Acute) Constipation (Acute) Nausea and vomiting (Acute) Fatigue (Acute) Nausea (Acute) Acute UTI (urinary tract infection) (Acute) Situational anxiety (Acute) Vascular dialysis catheter in place (Acute) Tachycardia (Acute) Weakness (Acute) Atrial flutter (Acute) Vomiting (Acute) Abdominal pain (Acute) ESRD (end stage renal disease) (Acute) Complication of renal dialysis (Acute) Chronic anxiety (Acute) Peritoneal dialysis catheter exit site infection (Acute) Peritonitis associated with peritoneal dialysis (Acute) Dialysis catheter clot or failure (Acute) PD catheter dysfunction (Acute) PD catheter dysfunction (Acute) End stage kidney disease (Acute) Episode of generalized weakness (Acute) ESRD (end stage renal disease) on dialysis (Acute) Atrial tachycardia (Acute) Acute hypotension (Acute) Acute dehydration (Acute) End-stage renal disease (ESRD) (Acute) Acute uremia (Acute) Atrial fibrillation with RVR (Acute) UTI (urinary tract infection) (Acute) End-stage renal disease on peritoneal dialysis (Chronic) Hyponatremia (Acute) Metabolic acidosis (Acute) Atrial fibrillation, permanent (Acute) Elevated troponin (Acute) Chest pain (Acute) Subsequent non-ST elevation (NSTEMI) myocardial infarction within 4 weeks of initial infarction (Acute) Insomnia (Acute) Syncope (Acute) QT prolongation (Acute) Medical History Allergic rhinitis Anemia due to stage 5 chronic kidney disease treated with darbepoetin Progressive decline in GFR slowly approaching ESRD Symptomatic anemia with hematocrit of 28 Aranesp started Iron stores adequate Anemia in chronic kidney disease (11/26/13) Anxiety disorder (10/26/13) Bladder spasm Chronic anticoagulation clopidogrel (due to 2 TIA's) Chronic edema DM, proteinuria and reduced GFR. Suspect not salt restricted either. Chronic fatigue syndrome Chronic kidney disease, stage I Chronic kidney disease, stage II (mild) Chronic kidney disease, stage III (moderate) (12/17/13) Chronic kidney disease, stage IV (severe) (11/26/13) Severe proteinuria with a differential diagnosis of hypertensive nephrosclerosis, NSAID induced membranous GN versus diabetic nephrosclerosis. Have eliminated any myeloma. Chronic renal failure, stage 4 (severe) If one looks at the differential outlined in problem #1, all these are going to be treated by good diabetic control, goal blood pressure of 130/80, and using anti-proteinuric renal protective blood pressure medicines such as diltiazem and losartan. I fear its to like to have a significant impact on avoiding renal replacement therapy and end-stage renal disease CKD (chronic kidney disease) stage 5, GFR less than 15 ml/min Progressive decline in GFR with heavy proteinuria in the setting of diabetes We will check her pANCA level in case there is a pauci-immune GN but I doubt it She is on diltiazem with a low-dose RAASI but still has approximately 10 g of proteinuria Degenerative joint disease knees Depression Depression, major, single episode, moderate (10/26/13) Dermatitis (10/26/13) Diabetes mellitus, type II Diarrhea Disorder of kidney and ureter Chronic renal failure Dysmetabolic syndrome X Fatigue Heart murmur, systolic History of gout well controlled on chronic allopurinol Hyperlipidemia Hyperparathyroidism due to renal insufficiency Goal PTH level of 100-300 given his degree of renal failure Hypertension, essential Hypertensive renal disease (11/26/13) Hypertonicity of bladder Knee effusion Late, effect, cerebrovascular disease 03/2013 correction current use of insulin Muscle weakness (generalized) Nephrotic range proteinuria Presumed diabetes as the remainder of her noninvasive work-up is been negative Final test was and ANCA which was ordered for next month She is on RAASI and diltiazem to no avail Obesity (BMI 30.0-34.9) Peripheral neuropathy Personal history of noncompliance with medical treatment Personal history of transient ischemic attack (TIA) and cerebral infarction without residual deficit Proteinuria Nephrotic range Pyelonephritis Sleep apnea refused CPAP Uncontrolled type 2 diabetes mellitus with stage 4 chronic kidney disease, with long-term current use of insulin 20 + yrs DM with marked insulin resistance and proteinuria and progressive, poor renal fx UTI symptoms On oxybutynin which she says helps dribbling but may contribute to frequent UTIs Vitamin D deficiency Surgical History History of cataract surgery 2007 bilateral History of colonoscopy (06/07/13) History of esophagogastroduodenoscopy (06/07/13) History of hysterectomy 1998 History of joint replacement [address] Giron History of surgery 07/28/2021-laparoscopic assisted peritoneal dialysis catheter placement History of surgery 10/10/2021-PD catheter repositioning Family History Father Alcohol abuse Pulmonary emphysema Cause of Unknown Alzheimer's disease Type 2 diabetes mellitus Hypertension Disorder of joint Mother Alzheimer's disease Aunt Diabetes mellitus Brother Diabetes mellitus Social History Smoking Status: Never smoker Alcohol Intake Frequency: holiday/special occasion only Substance Use: does not use Exam Narrative Narrative: Narrative: General Limitations: no limitations General appearance: Present alert and in no apparent distress Head Head: Present atraumatic and normocephalic Eye Eye: Present normal appearance and EOMI; Absent scleral icterus or conjunctival injection ENT ENT: Present mucous membranes moist Neck Neck: Present trachea midline Chest Chest: Present symmetric chest wall rise Respiratory Respiratory: Present normal lung sounds bilaterally and rales/crackles; Absent respiratory distress, wheezes, stridor or accessory muscle use Cardiovascular Cardiovascular: Present regular rate and normal rhythm; Absent systolic murmur or diastolic murmur Adbominal Abdominal: Present soft and other (PD catheter C/D/I); Absent distention, tenderness, guarding, rebound or rigidity Extremities Extremities: Present normal inspection; Absent pretibial edema Back Back: Absent CVA tenderness (R), CVA tenderness (L) or spinous process tenderne ss Neurological Neurological: Present alert, oriented X3 and CN II-XII intact; Absent motor sensory deficit Psychiatric Psychiatric: Present normal affect and normal mood Skin Skin: Present warm (WNL) and dry Course Consultations Consultation #1: Dr. Kumar, nephrology Time: 13:40 Consultation #2: Dr. Last, hospitalist Time: 14:00 Vital Signs Vital signs: Vital Signs Temperature 97.1 F 05/13/22 07:04 Pulse Rate 77 05/13/22 07:04 Respiratory Rate 20 05/13/22 07:04 Blood Pressure 118/92 05/13/22 07:04 Pulse Oximetry (%) 100 05/13/22 07:04 Temperature 97.6 F 05/13/22 16:01 Pulse Rate 74 05/13/22 16:01 Respiratory Rate 16 05/13/22 16:01 Blood Pressure 88/48 05/13/22 16:01 Pulse Oximetry (%) 98 05/13/22 16:01 [facility] Narrative Medical decision making narrative: 76-year-old female presenting with nausea and vomiting. Vital signs are stable however she is borderline hypotensive but afebrile. Abdominal exam is benign. 500cc normal saline bolus and Zofran 4 mg IV ordered. Will obtain labs and reevaluate. 1340: Labs notable for a leukocytosis to 16.7. Potassium level stable at 3.1. LFTs are unremarkable. Patient remained hypotensive in the ED so an additional 500 cc normal saline bolus was given and her blood pressure has improved to 102/56. Given her leukocytosis and hypotension, concern for an infectious process. UA does not appear to show infection however was sent for culture. Blood cultures obtained. CT abdomen shows no acute findings. Patient continued to have diarrhea and vomiting in the ED, IV Reglan and Benadryl given. Stool sample sent which was negative for C. difficile and fecal leukocytes. Peritoneal fluid studies ordered. Lactic acid level is pending. Given her ongoing vomiting, diarrhea, and concern for possible SBP, 1g IV cefepime ordered. Will plan for admission. I spoke with Dr. Kumar of nephrology who will consult on the patient. 1349: Lactic acid is 2.6. 1400: Patient discussed with Dr. Last, hospitalist, who will evaluate the patient and admit. Lab Data Lab results reviewed: Yes I reviewed the patient's lab results. Result diagrams: 05/13/22 Unknown 05/13/22 Unknown Labs: Lab Results 05/13/22 05/13/22 05/13/22 Range/Units 07:19 11:55 12:45 POC Hct 36.0 (36-48) VBG Lactic Acid 2.6 H (0.5-2.0) mmol/L POC Sodium 135 (133-145) POC Potassium 3.1 L (3.3-5.1) POC Chloride 97 (96-108) POC Total CO2 24.0 (22-30) POC BUN 35 H (6-20) POC Creatinine 9.8 H* (0.6-1.2) POC Glucose 213 H (70-105) POC WB Ioniz Calcium 1.04 L (1.16-1.32) Urine Color [place] Urine Appearance Cloudy A (Clear) Urine pH 5.0 (5.0-9.0) Ur Specific [place] 1.024 (1.000-1.035) Urine Protein Negative (Negative) mg/dL Urine Glucose (UA) Negative (Negative) mg/dL Urine Ketones 5 A (Negative) mg/dL Urine Occult Blood 0.03 (Negative) mg/dL Urine Nitrate Negative (Negative) Urine Bilirubin 4.0 A (Negative) mg/dL Urine Urobilinogen Negative mg/dL Ur Leukocyte Esterase 250 A (Negative) /uL Urine RBC 12 H (0-3) /hpf Urine WBC 111 H (0-4) /hpf Ur Squamous Epith Cells 13 H (0-4) /hpf Ur Transition Epith Cell 2 (0-2) /hpf Urine Bacteria Few A (0) /hpf Urine Mucus Few A (None) /hpf Ur Culture Indicated? No 05/13/22 Range/Units 14:51 POC Hct (36-48) VBG Lactic Acid 2.6 H (0.5-2.0) mmol/L POC Sodium (133-145) POC Potassium (3.3-5.1) POC Chloride (96-108) POC Total CO2 (22-30) POC BUN (6-20) POC Creatinine (0.6-1.2) POC Glucose (70-105) POC WB Ioniz Calcium (1.16-1.32) Urine Color Urine Appearance (Clear) Urine pH (5.0-9.0) Ur Specific [place] (1.000-1.035) Urine Protein (Negative) mg/dL Urine Glucose (UA) (Negative) mg/dL Urine Ketones (Negative) mg/dL Urine Occult Blood (Negative) mg/dL Urine Nitrate (Negative) Urine Bilirubin (Negative) mg/dL Urine Urobilinogen mg/dL Ur Leukocyte Esterase (Negative) /uL Urine RBC (0-3) /hpf Urine WBC (0-4) /hpf Ur Squamous Epith Cells (0-4) /hpf Ur Transition Epith Cell (0-2) /hpf Urine Bacteria (0) /hpf Urine Mucus (None) /hpf Ur Culture Indicated? ED POC Tests ED POC Tests: REVA - SARS Antigen Negative Radiology Data Radiology results reviewed: Yes I reviewed the patient's radiology results. Radiology results narrative: Ordering Physician:Federico Hicks M.D. Date of Service:05/13/22 Procedure(s):CT abdomen pelvis wo con INDICATION: vomiting, diarrhea, hypotension COMPARISON: Previous abdominal pelvic CT scans dated 03/24/2022, 11/15/2021 TECHNIQUE: Axial images were obtained through the abdomen and pelvis. Sagittally and coronally reformatted images. FINDINGS: Lung bases:4 mm noncalcified right lower lobe pulmonary parenchymal nodule, image 10. This is unchanged. There are multiple smaller noncalcified nodules at both lung bases. No parenchymal consolidation. No pleural fluid or pericardial fluid Liver:Negative to the limits of noncontrast enhanced examination. Liver contour is smooth without evidence for cirrhosis Gallbladder, bilary:Previous cholecystectomy. No dilated bile ducts Spleen:No splenomegaly Pancreas:No pancreatic mass. No peripancreatic abnormality Adrenal glands:Negative Kidneys,ureters,bladder:Kidneys are atrophic bilaterally. No detectable solid masses. There are vascular calcifications. No hydroureter. No ureteral calculus. Bladder is collapsed Gastrointestinal:No detectable colonic mass. There is no diverticulitis. There is density within the colon suggesting previous oral contrast material. This was not given at this time. Negative small bowel. No mechanical small bowel obstruction. No bowel wall thickening. No focal abnormality. Negative stomach and duodenum. There is a small hiatal hernia Appendix: The appendix is not well visualized. No evidence for appendicitis Vascular:Extensive atherosclerotic calcification. There is calcified coronary artery disease. Abdominal aorta is calcified. There is severe calcification in the proximal celiac trunk and superior mesenteric artery. There is also extensive calcification of the splenic artery and distal superior mesenteric artery and branches. There is probable stenosis of the celiac trunk. Lymphatic:No retroperitoneal adenopathy. No significant mesenteric adenopathy. Mesentery, peritoneum:There is a peritoneal dialysis catheter in the pelvis. There is prominent fluid within the peritoneal space. There are also gas bubbles within the nondependent portion of the peritoneal space. Clinical correlation for recent peritoneal dialysis recommended. There is no detectable intra-abdominal abscess Reproductive:Uterus is not identified. No adnexal mass Musculoskeletal:No lumbar compression fractures. There is severe degenerative disc disease at L5-S1 No pelvic or sacral fracture. No lytic lesion. There is a right inguinal hernia containing peritoneal fluid. There is no protruding bowel There is increased density in the subcutaneous soft tissues to the right of the umbilicus. This is unchanged. No well-defined fluid collection or abscess IMPRESSION: 1. Peritoneal dialysis catheter in the pelvis. Prominent free intraperitoneal fluid and intraperitoneal gas bubbles 2. No intra-abdominal abscess identified 3. Severe atherosclerotic calcification including coronary artery calcification. Visceral arteries are also calcified 4. Bilateral renal atrophy 5. Previous cholecystectomy and probable hysterectomy The exam was performed using radiation dose optimization techniques including, but not limited to, automated exposure control, adjustment of the mA and/or kV according to patient size and use of iterative reconstruction technique. Interpreted and Authenticated by: Kailash Campos 05/13/22 Discharge Plan Patient/Caregiver Discharge Instructions Pt seen by TESTBOARD OPERATOR/PA only: No Clinical Impression: Nausea, vomiting and diarrhea Patient Disposition: Xfer As Inpt ([facility]) Condition: Fair Discharge Date/Time: 05/13/22 15:08
[2022-05-13 07:23] LABS: POC Calcium, Ionized 1.04 (1.16-1.32); POC Creatinine 9.8 (0.6-1.2); POC Potassium 3.1 (3.3-5.1)
[2022-05-13] MEDS ORDERED: 0.9 % SODIUM CHLORIDE 500 ML IV ONE ×3 (07:39→14:43)
[2022-05-13] MEDS ORDERED: ONDANSETRON 4 MG/2 ML VIAL IV ONE (07:39)
[2022-05-13 08:57] LABS: Basophils # (Auto) 0.04 K/mcL (0.00-0.30); Basophils % (Auto) 0.2 % (0.0-2.0); Eosinophils # (Auto) 0.11 K/mcL (0.00-0.70); Eosinophils % (Auto) 0.7 % (0.0-7.0); Hematocrit 36.1 % (34.1-44.9); Hemoglobin 11.8 g/dL (11.2-15.7); Lymphocytes # (Auto) 1.61 K/mcL (1.50-4.80); Lymphocytes % (Auto) 9.7 % (15.5-49.0); Mean Cell Volume 101.1 fL (80.0-100.0); Mean Corpuscular HGB Conc 32.7 g/dL (31.0-36.0); Monocytes # (Auto) 1.01 K/mcL (0.10-0.90); Monocytes % (Auto) 6.1 % (1.0-12.0); Neutrophils % (Auto) 83.3 % (38.0-78.0); Platelet Count 382 K/mcL (140-440); RBC 3.57 M/mcL (3.59-5.38); Red Cell Distribution Width 13.4 % (11.5-14.5); WBC 16.7 K/mcL (4.5-11.0)
[2022-05-13] MEDS ORDERED: ACETAMINOPHEN 325 MG TABLET PO ONE (10:05)
[2022-05-13 11:00] LABS: ALT/SGPT 20 U/L (<40); AST/SGOT 24 U/L (<32); Albumin 3.5 gm/dL (3.2-5.2); Albumin/Globulin Ratio 0.9 (1.0-2.3); Alkaline Phosphatase 108 U/L (39-117); Bilirubin,Total 0.4 mg/dL (0.1-1.0); Blood Urea Nitrogen 36 mg/dL (8-23); Calcium 9.2 mg/dL (8.6-10.4); Carbon Dioxide 18 mmol/L (22-30); Chloride 90 mmol/L (96-108); Globulin 3.7 gm/dL (2.2-3.7); Glomerular Filtration Rate 4; Glucose 209 mg/dL (70-105)
[2022-05-13] MEDS ORDERED: HYDROmorphone 0.5 MG/0.5 ML SYRINGE IV ONE (11:24)
[2022-05-13] MEDS ORDERED: diphenhydrAMINE 50 MG/ML VIAL IV ONE (12:03)
[2022-05-13] MEDS ORDERED: METOCLOPRAMIDE 10 MG/2 ML VIAL IV ONE (12:03)
[2022-05-13] MEDS ORDERED: LOPERAMIDE 2 MG CAPSULE PO ONE (12:03)
[2022-05-13 12:45] LABS: Appearance,Urine CLOUDY (Clear); Bacteria,Urine FEW /hpf (0); Color,Urine AMBER; Culture Indicated,Urine No; Glucose,Urine (UA) Negative (Negative); Ketones,Urine 5 mg/dL (Negative); Leukocyte Esterase,Urine 250 /uL (Negative); Mucus,Urine FEW /hpf; Nitrate,Urine Negative (Negative); Protein,Urine Negative (Negative); Specific Gravity,Urine 1.024 (1.000-1.035); Urine Blood 0.03 mg/dL (Negative); Urine RBC 12 /hpf (0-3); Urine Squamous Epithelial Cell 13 /hpf (0-4); Urine Transitional Epi Cells 2 /hpf (0-2); Urine WBC 111 /hpf (0-4); Urobilinogen,Urine Negative
--- NOTE | 2022-05-13 12:48 | Cat Scan Report ---
INDICATION: vomiting, diarrhea, hypotension COMPARISON: Previous abdominal pelvic CT scans dated 03/24/2022, 11/15/2021 TECHNIQUE: Axial images were obtained through the abdomen and pelvis. Sagittally and coronally reformatted images. FINDINGS: Lung bases:4 mm noncalcified right lower lobe pulmonary parenchymal nodule, image 10. This is unchanged. There are multiple smaller noncalcified nodules at both lung bases. No parenchymal consolidation. No pleural fluid or pericardial fluid Liver:Negative to the limits of noncontrast enhanced examination. Liver contour is smooth without evidence for cirrhosis Gallbladder, bilary:Previous cholecystectomy. No dilated bile ducts Spleen:No splenomegaly Pancreas:No pancreatic mass. No peripancreatic abnormality Adrenal glands:Negative Kidneys,ureters,bladder:Kidneys are atrophic bilaterally. No detectable solid masses. There are vascular calcifications. No hydroureter. No ureteral calculus. Bladder is collapsed Gastrointestinal:No detectable colonic mass. There is no diverticulitis. There is density within the colon suggesting previous oral contrast material. This was not given at this time. Negative small bowel. No mechanical small bowel obstruction. No bowel wall thickening. No focal abnormality. Negative stomach and duodenum. There is a small hiatal hernia Appendix: The appendix is not well visualized. No evidence for appendicitis Vascular:Extensive atherosclerotic calcification. There is calcified coronary artery disease. Abdominal aorta is calcified. There is severe calcification in the proximal celiac trunk and superior mesenteric artery. There is also extensive calcification of the splenic artery and distal superior mesenteric artery and branches. There is probable stenosis of the celiac trunk. Lymphatic:No retroperitoneal adenopathy. No significant mesenteric adenopathy. Mesentery, peritoneum:There is a peritoneal dialysis catheter in the pelvis. There is prominent fluid within the peritoneal space. There are also gas bubbles within the nondependent portion of the peritoneal space. Clinical correlation for recent peritoneal dialysis recommended. There is no detectable intra-abdominal abscess Reproductive:Uterus is not identified. No adnexal mass Musculoskeletal:No lumbar compression fractures. There is severe degenerative disc disease at L5-S1 No pelvic or sacral fracture. No lytic lesion. There is a right inguinal hernia containing peritoneal fluid. There is no protruding bowel There is increased density in the subcutaneous soft tissues to the right of the umbilicus. This is unchanged. No well-defined fluid collection or abscess IMPRESSION: 1. Peritoneal dialysis catheter in the pelvis. Prominent free intraperitoneal fluid and intraperitoneal gas bubbles 2. No intra-abdominal abscess identified 3. Severe atherosclerotic calcification including coronary artery calcification. Visceral arteries are also calcified 4. Bilateral renal atrophy 5. Previous cholecystectomy and probable hysterectomy The exam was performed using radiation dose optimization techniques including, but not limited to, automated exposure control, adjustment of the mA and/or kV according to patient size and use of iterative reconstruction technique. Interpreted and Authenticated by: Kailash Campos 05/13/22
[2022-05-13] MEDS ORDERED: CEFEPIME 1 GM VIAL IV ONE (13:35)
--- NOTE | 2022-05-13 14:13 | Nephrology Consult Note ---
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 She presented to [facility] ED for nausea, vomiting, and diarrhea. Vitals were significant for hypotension (BP 85/36). Labs were significant for leukocytosis. No obvious source was newton ntified. She received 500 ml IV fluids. Cefepime 1g IV ordered. Nephrology consultation was requested for end stage renal disease. cc:: CC: Constitutional Constitutional: Present lethargy and weakness EENT Nose, mouth and throat: Absent nasal discharge or sore throat Cardiovascular Cardiovascular: Absent chest pain or palpatations Respiratory Respiratory: Absent cough or excessive phlegm production Gastrointestinal Gastrointestinal: Present diarrhea, nausea and vomiting Genitourinary Genitourinary: Absent dysuria or hematuria Musculoskeletal Musculoskeletal: Absent joint swelling Integumentary Integumentary: Absent rash or wounds Neurological Neurological: Present weakness; Absent confusion Psychiatric Psychiatric: Absent anxiety or panic attacks Hematologic/Lymphatic Hematologic/Lymphatic: Absent easy bleeding Allergic/Immunologic Allergic/Immunologic: Absent tongue swelling or uticaria PFSH PFSH All Active Problems (Updated 05/13/22 @ 13:47 by Federico Hicks MD) Gastroenteritis (Acute) Nausea & vomiting (Acute) End-stage renal disease (ESRD) (Acute) Abdominal pain (Acute) Nausea & vomiting (Acute) Chronic vomiting (Acute) Renal failure treated with peritoneal dialysis (Acute) Hypokalemia (Acute) Nausea & vomiting (Acute) Abdominal pain (Acute) Diarrhea (Acute) Vomiting (Acute) Renal failure treated with peritoneal dialysis (Acute) Acute hypokalemia (Acute) Nausea, vomiting and diarrhea (Acute) Allergic rhinitis (Chronic) Anemia in chronic kidney disease (Chronic 11/26/13) Anxiety disorder (Chronic 10/26/13) Bladder spasm (Chronic) Late, effect, cerebrovascular disease (Chronic) Chronic fatigue syndrome (Chronic) Chronic kidney disease, stage IV (severe) (Chronic 11/26/13) Degenerative joint disease (Chronic) Dermatitis (Chronic 10/26/13) Diabetes mellitus, type II (Chronic) Fatigue (Chronic) Hyperlipidemia (Chronic) Hypertension, essential (Chronic) Hypertensive renal disease (Chronic 11/26/13) Hypertonicity of bladder (Chronic) longterm current use of insulin (Chronic) Dysmetabolic syndrome X (Chronic) Muscle weakness (generalized) (Chronic) Personal history of noncompliance with medical treatment (Chronic) Peripheral neuropathy (Chronic) Proteinuria (Chronic) Sleep apnea (Chronic) Personal history of transient ischemic attack (TIA) and cerebral infarction without residual deficit (Chronic) Vitamin D deficiency (Chronic) Obesity (BMI 30.0-34.9) (Chronic) Hyperparathyroidism due to renal insufficiency (Chronic) Chronic anticoagulation (Chronic) Heart murmur, systolic (Chronic) History of gout (Chronic) Chronic renal failure, stage 4 (severe) (Chronic) Encounter for monitoring chronic NSAID therapy (Acute) Dehydration (Acute) Uncontrolled type 2 diabetes mellitus with stage 4 chronic kidney disease, with long-term current use of insulin (Chronic) Chronic edema (Chronic) UTI symptoms (Chronic) Anemia in chronic kidney disease (Chronic) Difficulty swallowing pills (Acute) Anemia due to stage 5 chronic kidney disease treated with darbepoetin (Chronic) CKD (chronic kidney disease) stage 5, GFR less than 15 ml/min (Chronic) Nephrotic range proteinuria (Chronic) CKD stage 5 due to type 2 diabetes mellitus (Acute) Abn react-renal dialysis (Acute) Type 2 DM with hypertension and ESRD on dialysis (Acute) Anxiety attack (Acute) ESRD (end stage renal disease) on dialysis (Acute) Hyperparathyroidism due to ESRD on dialysis (Acute) Constipation (Acute) Nausea and vomiting (Acute) Fatigue (Acute) Nausea (Acute) Acute UTI (urinary tract infection) (Acute) Situational anxiety (Acute) Vascular dialysis catheter in place (Acute) Tachycardia (Acute) Weakness (Acute) Atrial flutter (Acute) Vomiting (Acute) Abdominal pain (Acute) ESRD (end stage renal disease) (Acute) Complication of renal dialysis (Acute) Chronic anxiety (Acute) Peritoneal dialysis catheter exit site infection (Acute) Peritonitis associated with peritoneal dialysis (Acute) Dialysis catheter clot or failure (Acute) PD catheter dysfunction (Acute) PD catheter dysfunction (Acute) End stage kidney disease (Acute) Episode of generalized weakness (Acute) ESRD (end stage renal disease) on dialysis (Acute) Atrial tachycardia (Acute) Acute hypotension (Acute) Acute dehydration (Acute) End-stage renal disease (ESRD) (Acute) Acute uremia (Acute) Atrial fibrillation with RVR (Acute) UTI (urinary tract infection) (Acute) End-stage renal disease on peritoneal dialysis (Chronic) Hyponatremia (Acute) Metabolic acidosis (Acute) Atrial fibrillation, permanent (Acute) Elevated troponin (Acute) Chest pain (Acute) Subsequent non-ST elevation (NSTEMI) myocardial infarction within 4 weeks of initial infarction (Acute) Insomnia (Acute) Syncope (Acute) QT prolongation (Acute) Medical History Allergic rhinitis Anemia due to stage 5 chronic kidney disease treated with darbepoetin Progressive decline in GFR slowly approaching ESRD Symptomatic anemia with hematocrit of 28 Aranesp started Iron stores adequate Anemia in chronic kidney disease (11/26/13) Anxiety disorder (10/26/13) Bladder spasm Chronic anticoagulation clopidogrel (due to 2 TIA's) Chronic edema DM, proteinuria and reduced GFR. Suspect not salt restricted either. Chronic fatigue syndrome Chronic kidney disease, stage I Chronic kidney disease, stage II (mild) Chronic kidney disease, stage III (moderate) (12/17/13) Chronic kidney disease, stage IV (severe) (11/26/13) Severe proteinuria with a differential diagnosis of hypertensive nephrosclerosis, NSAID induced membranous GN versus diabetic nephrosclerosis. Have eliminated any myeloma. Chronic renal failure, stage 4 (severe) If one looks at the differential outlined in problem #1, all these are going to be treated by good diabetic control, goal blood pressure of 130/80, and using anti-proteinuric renal protective blood pressure medicines such as diltiazem and losartan. I fear its to like to have a significant impact on avoiding renal replacement therapy and end-stage renal disease CKD (chronic kidney disease) stage 5, GFR less than 15 ml/min Progressive decline in GFR with heavy proteinuria in the setting of diabetes We will check her pANCA level in case there is a pauci-immune GN but I doubt it She is on diltiazem with a low-dose RAASI but still has approximately 10 g of proteinuria Degenerative joint disease knees Depression Depression, major, single episode, moderate (10/26/13) Dermatitis (10/26/13) Diabetes mellitus, type II Diarrhea Disorder of kidney and ureter Chronic renal failure Dysmetabolic syndrome X Fatigue Heart murmur, systolic History of gout well controlled on chronic allopurinol Hyperlipidemia Hyperparathyroidism due to renal insufficiency Goal PTH level of 100-300 given his degree of renal failure Hypertension, essential Hypertensive renal disease (11/26/13) Hypertonicity of bladder Knee effusion Late, effect, cerebrovascular disease 03/2013 longterm current use of insulin Muscle weakness (generalized) Nephrotic range proteinuria Presumed diabetes as the remainder of her noninvasive work-up is been negative Final test was and ANCA which was ordered for next month She is on RAASI and diltiazem to no avail Obesity (BMI 30.0-34.9) Peripheral neuropathy Personal history of noncompliance with medical treatment Personal history of transient ischemic attack (TIA) and cerebral infarction without residual deficit Proteinuria Nephrotic range Pyelonephritis Sleep apnea refused CPAP Uncontrolled type 2 diabetes mellitus with stage 4 chronic kidney disease, with long-term current use of insulin 20 + yrs DM with marked insulin resistance and proteinuria and progressive, poor renal fx UTI symptoms On oxybutynin which she says helps dribbling but may contribute to frequent UTIs Vitamin D deficiency Surgical History History of cataract surgery 2006 bilateral History of colonoscopy (06/07/13) History of esophagogastroduodenoscopy (06/07/13) History of hysterectomy 1998 History of joint replacement [address] Giron History of surgery 07/28/2021-laparoscopic assisted peritoneal dialysis catheter placement History of surgery 10/10/2021-PD catheter repositioning Family History Father Alcohol abuse Pulmonary emphysema Cause of Unknown Alzheimer's disease Type 2 diabetes mellitus Hypertension Disorder of joint Mother Alzheimer's disease Aunt Diabetes mellitus Brother Diabetes mellitus Social History other: Grandchildren-she is caregiver of her granddaughter who has cerebral palsy alcohol intake frequency: holiday/special occasion only substance use type: does not use MEDS/ALLERGIES Home Medications and Allergies Home Medications Medication Instructions Recorded Confirmed Type clopidogrel 75 mg tablet 75 mg PO QDAY #30 tab 12/19/21 01/02/22 Rx melatonin 3 mg capsule 9 mg PO QHS #100 cap 12/19/21 01/02/22 Rx ondansetron 4 mg disintegrating 4 mg PO Q8H PRN #12 tab 03/11/22 Rx tablet calcitriol 0.25 mcg capsule 0.25 mcg PO QDAY #30 cap 03/20/22 Rx gentamicin 0.1 % topical cream 1 applic TOPICAL .three times a 03/20/22 Rx week #30 g insulin detemir U-100 100 unit/mL 62 unit (0.62 mL) SUB-Q BID #15 03/20/22 Rx (3 mL) subcutaneous pen (Levemir syringe FlexTouch U-100 Insulin) metoprolol succinate 50 mg 50 mg PO QDAY #30 tab 03/20/22 Rx tablet,extended release 24 hr metoclopramide HCl 5 mg tablet 5 mg PO TID PRN #20 tab 03/25/22 Rx dicyclomine 10 mg capsule 10 mg PO TID PRN #14 cap 04/03/22 Rx famotidine 20 mg tablet (Pepcid) 20 mg PO BID #60 tab 04/03/22 Rx sucralfate 1 gram tablet (Carafate) 1 g PO QID #20 tab 04/03/22 Rx Allergies Allergy/AdvReac Type Severity Reaction Status Date / Time No Known Drug Allergies Allergy Verified 05/13/22 07:07 Physical Examination Vital Signs Vital signs: Temp Pulse Resp BP Pulse Ox 97.1 F 78 19 85/36 95 05/13/22 07:04 05/13/22 13:44 05/13/22 13:44 05/13/22 13:31 05/13/22 13:44 General Appearance General appearance: appears started age, chronically ill and fatigue EENT EENT: mucous membranes dry Respiratory Respiratory: clear Cardiovascular Cardiology: no edema and regular rate Gastrointestinal Gastrointestinal: no tenderness Integumentary Integumentary: no rash Neurologic Neurologic: no focal deficit and alert and oriented x3 Psychiatric Psychiatric: mood/affect appropriate and cooperative Results Lab Results Result Diagrams: 05/13/22 Unknown 05/13/22 Unknown Lab results: Most recent lab results Calcium 9.2 mg/dL (8.6-10.4) 05/13/22 Unknown A/P Assessment and plan (1) End-stage renal disease on peritoneal dialysis: Assessment and plan: Debra Walker is a 76-year-old female with end stage renal disease on peritoneal dialysis, 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 She presented to [facility] ED for nausea, vomiting, and diarrhea. She also had abdominal pain. Her symptoms started about 1 month ago. Vitals were significant for hypotension (BP 85/36). Labs were significant for leukocytosis. No obvious source was identified. She received 1L IV fluids. Cefepime 1g IV ordered. Nephrology consultation was requested for end stage renal disease. End stage renal disease on peritoneal dialysis. Chronic anemia due to ESRD. Hypotension. Hypokalemia. Metabolic acidosis. Nausea, vomiting, diarrhea. Workup: CT Abdomen and Pelvis on 05/13/22: Peritoneal dialysis catheter in the pelvis. Prominent free intraperitoneal fluid and intraperitoneal gas bubbles. No intra- abdominal abscess identified. Severe atherosclerotic calcification including coronary artery calcification. Visceral arteries are also calcified. Bilateral renal atrophy. Previous cholecystectomy and probable hysterectomy. Labs on 05/13/22: Urinalysis sushma, cloudy, pH 5.0, SG 1.024, protein negative, blood 0.03, leukocyte esterase 250. Labs on 05/13/22: WBC 16.7 (neutrophils 83.3%), venous lactate 2.6, lipase 52, Previous Workup: PD Fluid on 05/11/22: Colorless, clear, Nucleated 72 (Neutrophils 34%, Lymph 16%, [place] 27%, [place] 23%), RBC <50,000. Recommendations/Plan: PD fluid cell count, gram stain, culture. Continue CCPD nightly, 1.5%; fill volume 2,400 ml, 4 exchanges, 10 hours, last fill 2,400 ml. 24 hour urine collection for adequacy for PD nurse. I informed her in ED at bedside. Status: Chronic Time Spent With Patient Time: Total time spent is greater than 50% in coordination of care (as documented) at patient's floor/unit and/or counseling patient:
[2022-05-13] MEDS ORDERED: DEXTROSE 50% 50 ML VIAL IV PRN (15:18)
[2022-05-13] MEDS ORDERED: DEXTROSE 31 GM ORAL.SUSP PO PRN (15:18)
[2022-05-13] MEDS: LACTATED RINGERS 1,000 ML IV SCH (15:31)
--- NOTE | 2022-05-13 15:35 | Cat Scan Report ---
INDICATION: headache COMPARISON: Previous brain CT scans dated 11/23/2021, 11/21/2021. Previous MRI scan dated 11/22/2021 TECHNIQUE: Axial noncontrast-enhanced images through the brain. Sagittally and coronally reformatted images. FINDINGS: Cerebral hemispheres:No acute intracranial hemorrhage. No intra-axial hematoma. There is prominent white matter abnormality consistent with small vessel ischemic change. Findings are unchanged. No focal intra-axial attenuation abnormality. No localized mass effect. No midline shift. Brainstem and cerebellum:No intra-axial hemorrhage. No focal attenuation abnormality. Extra-axial:No acute hemorrhage. No subdural or epidural hematoma. No subarachnoid hemorrhage. Basilar cisterns are normal There is atherosclerotic calcification of the intracranial vertebral arteries and intracranial internal carotid arteries bilaterally. Calvarial:No calvarial fracture. No lytic lesion Temporal bones are negative. No destructive lesions Soft tissue, orbits, sinuses:Orbits and visualized facial soft tissues and paranasal sinuses are negative IMPRESSION: 1. No acute intracranial hemorrhage 2. Severe white matter abnormality consistent with small vessel ischemic change 3. No interval change since 11/23/2021 The exam was performed using radiation dose optimization techniques including, but not limited to, automated exposure control, adjustment of the mA and/or kV according to patient size and use of iterative reconstruction technique. Interpreted and Authenticated by: Kailash Campos 05/13/22
[2022-05-13] MEDS ORDERED: 0.9 % SODIUM CHLORIDE 10 ML SYRINGE IV PRN (15:55)
--- NOTE | 2022-05-13 16:12 | Internal Med History&Physical ---
HPI History of Present Illness Patient information: Note initiated : 05/13/22 at 4:05 pm Service Date, if different from initiated Date: [as above] Patient: Debra Walker 76 y/o F admitted on 05/13/22 for N/V/D, headache. Chief Complaint: Nausea, vomiting, diarrhea Chief complaint: Generalized weakness History of present illness: Ms. Walker is a 76 year old F with a complex past medical history most significant for end-stage renal disease on peritoneal dialysis for approximately 10 months, insulin-dependent diabetes, hypertension and hyperlipidemia who presents to the hospital after she was recently discharged from the ER approximately 2 days ago with ongoing nausea, vomiting and diarrhea. The patient was seen at her facility on May 11 however declined admission and decided to go home. While at home, she continued to deteriorate. Per the 's report who was present at the bedside, the patient was weak, and nearly had a fall. The patient continued to experience nausea and vomiting. She normally undergoes daily peritoneal dialysis at night for approximately 9 hours. She denies any sick contacts or recent travel. When the patient was in the ER previously approximately 2 days ago, she was ruled out for SBP. This time, C. difficile was checked and it was negative. While in the ER, the patient was given IV Benadryl, metoclopramide and IV Dilaudid. She was also bolused multiple times with 500 cc of NS. She was given one-time dose of cefepime. Nephrology were consulted to assist. The hospital service was asked admit the patient for further management and evaluation of her suspected sepsis. Review of Systems All systems: reviewed and no additional remarkable complaints except as stated Constitutional Constitutional: Present as per HPI EENT Eyes: Present as per HPI; Absent blurry vision Cardiovascular Cardiovascular: Present as per HPI; Absent chest pain, dyspnea, dyspnea on exertion, leg edema or palpatations Respiratory Respiratory: Present as per HPI; Absent cough, dyspnea, dyspnea on exertion, wheezing or stridor Gastrointestinal Gastrointestinal: Present as per HPI, diarrhea, nausea and vomiting; Absent abdominal pain, dysphagia, hematemesis or melena Musculoskeletal Musculoskeletal: Present as per HPI; Absent joint swelling, limited range of motion, muscle cramps, muscle weakness or myalgias Integumentary Integumentary: Present as per HPI; Absent erythema, new lesions, rash or wounds Neurological Neurological: Present as per HPI; Absent abnormal gait, behavioral changes, focal weakness, headache(s), loss of vision, numbness, sensory deficit or syncope Endocrine Endocrine: Absent change in body appearance, fatigue or heat intolerance Hematologic/Lymphatic Hematologic/Lymphatic: Present as per HPI PFSH PFSH All Active Problems (Updated 05/13/22 @ 16:09 by Abril Last MD) Sepsis (Acute) Gastroenteritis (Acute) Nausea & vomiting (Acute) End-stage renal disease (ESRD) (Acute) Abdominal pain (Acute) Nausea & vomiting (Acute) Chronic vomiting (Acute) Renal failure treated with peritoneal dialysis (Acute) Hypokalemia (Acute) Nausea & vomiting (Acute) Abdominal pain (Acute) Diarrhea (Acute) Vomiting (Acute) Renal failure treated with peritoneal dialysis (Acute) Acute hypokalemia (Acute) Nausea, vomiting and diarrhea (Acute) Allergic rhinitis (Chronic) Anemia in chronic kidney disease (Chronic 11/26/13) Anxiety disorder (Chronic 10/26/13) Bladder spasm (Chronic) Late, effect, cerebrovascular disease (Chronic) Chronic fatigue syndrome (Chronic) Chronic kidney disease, stage IV (severe) (Chronic 11/26/13) Degenerative joint disease (Chronic) Dermatitis (Chronic 10/26/13) Diabetes mellitus, type II (Chronic) Fatigue (Chronic) Hyperlipidemia (Chronic) Hypertension, essential (Chronic) Hypertensive renal disease (Chronic 11/26/13) Hypertonicity of bladder (Chronic) MCFP current use of insulin (Chronic) Dysmetabolic syndrome X (Chronic) Muscle weakness (generalized) (Chronic) Personal history of noncompliance with medical treatment (Chronic) Peripheral neuropathy (Chronic) Proteinuria (Chronic) Sleep apnea (Chronic) Personal history of transient ischemic attack (TIA) and cerebral infarction without residual deficit (Chronic) Vitamin D deficiency (Chronic) Obesity (BMI 30.0-34.9) (Chronic) Hyperparathyroidism due to renal insufficiency (Chronic) Chronic anticoagulation (Chronic) Heart murmur, systolic (Chronic) History of gout (Chronic) Chronic renal failure, stage 4 (severe) (Chronic) Encounter for monitoring chronic NSAID therapy (Acute) Dehydration (Acute) Uncontrolled type 2 diabetes mellitus with stage 4 chronic kidney disease, with long-term current use of insulin (Chronic) Chronic edema (Chronic) UTI symptoms (Chronic) Anemia in chronic kidney disease (Chronic) Difficulty swallowing pills (Acute) Anemia due to stage 5 chronic kidney disease treated with darbepoetin (Chronic) CKD (chronic kidney disease) stage 5, GFR less than 15 ml/min (Chronic) Nephrotic range proteinuria (Chronic) CKD stage 5 due to type 2 diabetes mellitus (Acute) Abn react-renal dialysis (Acute) Type 2 DM with hypertension and ESRD on dialysis (Acute) Anxiety attack (Acute) ESRD (end stage renal disease) on dialysis (Acute) Hyperparathyroidism due to ESRD on dialysis (Acute) Constipation (Acute) Nausea and vomiting (Acute) Fatigue (Acute) Nausea (Acute) Acute UTI (urinary tract infection) (Acute) Situational anxiety (Acute) Vascular dialysis catheter in place (Acute) Tachycardia (Acute) Weakness (Acute) Atrial flutter (Acute) Vomiting (Acute) Abdominal pain (Acute) ESRD (end stage renal disease) (Acute) Complication of renal dialysis (Acute) Chronic anxiety (Acute) Peritoneal dialysis catheter exit site infection (Acute) Peritonitis associated with peritoneal dialysis (Acute) Dialysis catheter clot or failure (Acute) PD catheter dysfunction (Acute) PD catheter dysfunction (Acute) End stage kidney disease (Acute) Episode of generalized weakness (Acute) ESRD (end stage renal disease) on dialysis (Acute) Atrial tachycardia (Acute) Acute hypotension (Acute) Acute dehydration (Acute) End-stage renal disease (ESRD) (Acute) Acute uremia (Acute) Atrial fibrillation with RVR (Acute) UTI (urinary tract infection) (Acute) End-stage renal disease on peritoneal dialysis (Chronic) Hyponatremia (Acute) Metabolic acidosis (Acute) Atrial fibrillation, permanent (Acute) Elevated troponin (Acute) Chest pain (Acute) Subsequent non-ST elevation (NSTEMI) myocardial infarction within 4 weeks of initial infarction (Acute) Insomnia (Acute) Syncope (Acute) QT prolongation (Acute) Medical History Allergic rhinitis Anemia due to stage 5 chronic kidney disease treated with darbepoetin Progressive decline in GFR slowly approaching ESRD Symptomatic anemia with hematocrit of 28 Aranesp started Iron stores adequate Anemia in chronic kidney disease (11/26/13) Anxiety disorder (10/26/13) Bladder spasm Chronic anticoagulation clopidogrel (due to 2 TIA's) Chronic edema DM, proteinuria and reduced GFR. Suspect not salt restricted either. Chronic fatigue syndrome Chronic kidney disease, stage I Chronic kidney disease, stage II (mild) Chronic kidney disease, stage III (moderate) (12/17/13) Chronic kidney disease, stage IV (severe) (11/26/13) Severe proteinuria with a differential diagnosis of hypertensive nephrosclerosis, NSAID induced membranous GN versus diabetic nephrosclerosis. Have eliminated any myeloma. Chronic renal failure, stage 4 (severe) If one looks at the differential outlined in problem #1, all these are going to be treated by good diabetic control, goal blood pressure of 130/80, and using anti-proteinuric renal protective blood pressure medicines such as diltiazem and losartan. I fear its to like to have a significant impact on avoiding renal replacement therapy and end-stage renal disease CKD (chronic kidney disease) stage 5, GFR less than 15 ml/min Progressive decline in GFR with heavy proteinuria in the setting of diabetes We will check her pANCA level in case there is a pauci-immune GN but I doubt it She is on diltiazem with a low-dose RAASI but still has approximately 10 g of proteinuria Degenerative joint disease knees Depression Depression, major, single episode, moderate (10/26/13) Dermatitis (10/26/13) Diabetes mellitus, type II Diarrhea Disorder of kidney and ureter Chronic renal failure Dysmetabolic syndrome X Fatigue Heart murmur, systolic History of gout well controlled on chronic allopurinol Hyperlipidemia Hyperparathyroidism due to renal insufficiency Goal PTH level of 100-300 given his degree of renal failure Hypertension, essential Hypertensive renal disease (11/26/13) Hypertonicity of bladder Knee effusion Late, effect, cerebrovascular disease 03/2013 manager long term care current use of insulin Muscle weakness (generalized) Nephrotic range proteinuria Presumed diabetes as the remainder of her noninvasive work-up is been negative Final test was and ANCA which was ordered for next month She is on RAASI and diltiazem to no avail Obesity (BMI 30.0-34.9) Peripheral neuropathy Personal history of noncompliance with medical treatment Personal history of transient ischemic attack (TIA) and cerebral infarction without residual deficit Proteinuria Nephrotic range Pyelonephritis Sleep apnea refused CPAP Uncontrolled type 2 diabetes mellitus with stage 4 chronic kidney disease, with long-term current use of insulin 20 + yrs DM with marked insulin resistance and proteinuria and progressive, poor renal fx UTI symptoms On oxybutynin which she says helps dribbling but may contribute to frequent UTIs Vitamin D deficiency Surgical History History of cataract surgery 2006 bilateral History of colonoscopy (06/07/13) History of esophagogastroduodenoscopy (06/07/13) History of hysterectomy 1998 History of joint replacement [address] Giron History of surgery 07/28/2021-laparoscopic assisted peritoneal dialysis catheter placement History of surgery 10/10/2021-PD catheter repositioning Family History Father Alcohol abuse Pulmonary emphysema Cause of Unknown Alzheimer's disease Type 2 diabetes mellitus Hypertension Disorder of joint Mother Alzheimer's disease Aunt Diabetes mellitus Brother Diabetes mellitus Social History other: Grandchildren-she is caregiver of her granddaughter who has cerebral palsy alcohol intake frequency: holiday/special occasion only substance use type: does not use MEDS/ALLERGIES Home Medications and Allergies Home Medications Medication Instructions Recorded Confirmed Type clopidogrel 75 mg tablet 75 mg PO QDAY #30 tab 12/19/21 01/02/22 Rx melatonin 3 mg capsule 9 mg PO QHS #100 cap 12/19/21 01/02/22 Rx ondansetron 4 mg disintegrating 4 mg PO Q8H PRN #12 tab 03/11/22 05/13/22 Rx tablet gentamicin 0.1 % topical cream 1 applic TOPICAL .three times a 03/20/22 05/13/22 Rx week #30 g insulin detemir U-100 100 unit/mL 62 unit (0.62 mL) SUB-Q BID #15 03/20/22 05/13/22 Rx (3 mL) subcutaneous pen (Levemir syringe FlexTouch U-100 Insulin) metoprolol succinate 50 mg 50 mg PO QDAY #30 tab 03/20/22 Rx tablet,extended release 24 hr metoclopramide HCl 5 mg tablet 5 mg PO TID PRN #20 tab 03/25/22 Rx dicyclomine 10 mg capsule 10 mg PO TID PRN #14 cap 04/03/22 05/13/22 Rx famotidine 20 mg tablet (Pepcid) 20 mg PO BID #60 tab 04/03/22 05/13/22 Rx sucralfate 1 gram tablet (Carafate) 1 g PO QID #20 tab 04/03/22 Rx allopurinol 300 mg tablet 1 tab PO QDAY 05/13/22 05/13/22 History amiodarone 200 mg tablet 1 tab PO BID 05/13/22 05/13/22 History amlodipine 5 mg-atorvastatin 40 mg 1 tab PO QDAY 05/13/22 05/13/22 History tablet apixaban 5 mg tablet (Eliquis) 1 tab PO BID 05/13/22 05/13/22 History atorvastatin 20 mg tablet 1 tab PO HS 05/13/22 05/13/22 History calcium acetate(phosphat bind) 667 1 cap PO TID 05/13/22 05/13/22 History mg capsule clonazepam 0.5 mg tablet 1 mg PO QDAY 05/13/22 05/13/22 History diltiazem HCl 90 mg 2 cap PO BID 05/13/22 05/13/22 History capsule,extended release 12 hr insulin detemir U-100 100 unit/mL 76 unit SUBCUT BID 05/13/22 05/13/22 History (3 mL) subcutaneous pen (Levemir FlexTouch U-100 Insulin) lisinopril 40 mg tablet 1 tab PO BID 05/13/22 05/13/22 History omeprazole 40 mg capsule,delayed 1 cap PO QDAY 05/13/22 05/13/22 History release polysaccharide iron complex 150 mg 1 cap PO QDAY 05/13/22 05/13/22 History iron capsule (Ferrex) sitagliptin 25 mg tablet (Januvia) 1 tab PO QDAY 05/13/22 05/13/22 History tramadol 50 mg tablet 1 tab PO BID PRN 05/13/22 05/13/22 History Allergies Allergy/AdvReac Type Severity Reaction Status Date / Time No Known Drug Allergies Allergy Verified 05/13/22 15:38 EXAM Constitutional Vitals: Temp Pulse Resp BP Pulse Ox 97.6 F 74 16 88/48 98 05/13/22 16:01 05/13/22 16:01 05/13/22 16:01 05/13/22 16:01 05/13/22 16:01 General appearance: average body habitus Head Head exam: Present atraumatic, normal inspection and normocephalic Eye Eye exam: Present EOMI, normal appearance and PERRL; Absent conjunctival injection ENT ENT exam: Present normal exam; Absent mucous membranes dry Neck Neck exam: Present full ROM; Absent lymphadenopathy Respiratory Respiratory exam: Present normal respiratory exam and CTAB; Absent decreased breath sounds, respiratory distress or wheezes Cardiovascular Cardiovascular exam: Present normal rate and rhythm and RRR; Absent JVD GI/Abdominal GI/Abdominal exam: Present normal bowel sounds and soft; Absent diminished bowel sounds, distended, guarding, mass, rebound or tenderness Neurological Exam Neurological exam: Present alert, CN II-XII intact and oriented X3 Psychiatric Psychiatric exam: Present normal affect and normal mood Skin Skin exam: Present intact and warm; Absent erythema, pallor, petechiae or rash DATA Data Completed and Pending Labs: Labs from last 24 hours 05/13/22 05/13/22 05/13/22 Unknown Unknown 14:51 WBC 16.7 H RBC 3.57 L Hgb 11.8 Hct 36.1 POC Hct MCV 101.1 H MCH 33.1 MCHC 32.7 RDW 13.4 Plt Count 382 MPV 10.0 Neut % (Auto) 83.3 H Lymph % (Auto) 9.7 L Wilson % (Auto) 6.1 Eos % (Auto) 0.7 Baso % (Auto) 0.2 Lymph # (Auto) 1.61 Wilson # (Auto) 1.01 H Eos # (Auto) 0.11 Baso # (Auto) 0.04 Absolute Neutrophils 13.90 H VBG Lactic Acid 2.6 H POC Sodium Sodium 135 POC Potassium Potassium 3.1 L POC Chloride Chloride 90 L Carbon Dioxide 18 L POC Total CO2 Anion Gap 27.0 H POC BUN BUN 36 H Creatinine 8.3 H* POC Creatinine GFR Calculation 4 Glucose 209 H POC Glucose Calcium 9.2 POC WB Ioniz Calcium Total Bilirubin 0.4 AST 24 ALT 20 Alkaline Phosphatase 108 Total Protein 7.2 Albumin 3.5 Globulin 3.7 Albumin/Globulin Ratio 0.9 L Lipase 52 Urine Color Urine Appearance Urine pH Ur Specific [place] Urine Protein Urine Glucose (UA) Urine Ketones Urine Occult Blood Urine Nitrate Urine Bilirubin Urine Urobilinogen Ur Leukocyte Esterase Urine RBC Urine WBC Ur Squamous Epith Cells Ur Transition Epith Cell Urine Bacteria Urine Mucus Ur Culture Indicated? 05/13/22 05/13/22 05/13/22 12:45 11:55 07:19 WBC RBC Hgb Hct POC Hct 36.0 MCV MCH MCHC RDW Plt Count MPV Neut % (Auto) Lymph % (Auto) Wilson % (Auto) Eos % (Auto) Baso % (Auto) Lymph # (Auto) Wilson # (Auto) Eos # (Auto) Baso # (Auto) Absolute Neutrophils VBG Lactic Acid 2.6 H POC Sodium 135 Sodium POC Potassium 3.1 L Potassium POC Chloride 97 Chloride Carbon Dioxide POC Total CO2 24.0 Anion Gap POC BUN 35 H BUN Creatinine POC Creatinine 9.8 H* GFR Calculation Glucose POC Glucose 213 H Calcium POC WB Ioniz Calcium 1.04 L Total Bilirubin AST ALT Alkaline Phosphatase Total Protein Albumin Globulin Albumin/Globulin Ratio Lipase Urine Color [place] Urine Appearance Cloudy A Urine pH 5.0 Ur Specific [place] 1.024 Urine Protein Negative Urine Glucose (UA) Negative Urine Ketones 5 A Urine Occult Blood 0.03 Urine Nitrate Negative Urine Bilirubin 4.0 A Urine Urobilinogen Negative Ur Leukocyte Esterase 250 A Urine RBC 12 H Urine WBC 111 H Ur Squamous Epith Cells 13 H Ur Transition Epith Cell 2 Urine Bacteria Few A Urine Mucus Few A Ur Culture Indicated? No A/P Assessment and plan (1) Gastroenteritis: Status: Acute (2) Nausea & vomiting: Status: Acute (3) Diabetes mellitus, type II: Status: Chronic (4) Hyperlipidemia: Status: Chronic (5) Hypertension, essential: Status: Chronic (6) Muscle weakness (generalized): Status: Chronic (7) Sepsis: Status: Acute Narrative A/P Narrative: The patient has underlying ESRD on PD and presents with a septic picture with ongoing hypotension and lactic acidosis. The patient's CT abdomen pelvis was unrevealing. We will recheck any ascitic fluid to rule out SBP. C. difficile has been ruled out. I discussed CODE STATUS with the and she is indeed a full code. Nephrology has been consulted to assist with management and she will undergo peritoneal dialysis. She may need CRRT. Plan of Treatment: At this point, we will continue to resuscitate her with IV fluids. She has weak peripheral access and I have consulted anesthesiology to place CVC. Her home amiodarone, amlodipine, lisinopril, diltiazem, Eliquis and clopidogrel will be held. The patient's high-dose U1 100 Levemir will also be held. She has been empirically covered with cefepime. If this is truly viral gastroenteritis, we will continue conservative management and have started Imodium p.o. every 6 hours. She will be placed on insulin sliding scale. We will monitor her MAP, CVP, and urinary output. Time Spent With Patient Time: Total time spent is greater than 50% in coordination of care (as documented) at patient's floor/unit and/or counseling patient: Total time spent with greater than 50% in coordination of care (as documented) at patient's floor/unit and/or counseling patient:: Greater than 70 minutes
[2022-05-13] MEDS: LOPERAMIDE 2 MG CAPSULE PO SCH ×3 (16:36→21:38)
[2022-05-13] MEDS: ACETAMINOPHEN 325 MG TABLET PO PRN (16:36)
[2022-05-13] MEDS: ONDANSETRON 4 MG/2 ML VIAL IV PRN (16:53)
--- NOTE | 2022-05-13 18:22 | Procedure Note ---
Procedures - Central Line Placement Left IJ Consent obtained: verbal consent Date of Procedure: 05/13/22 Time out performed: Yes Patient placed on monitor/pulse ox: Yes MD prep: mask, sterile gown, sterile gloves, cap, other (eye protection) Central line prep: 2% Chlorhexidine scrub Ultrasound used for placement: Yes Central line lumen inserted: quad, 16 cm Post procedure: sutured in place, good blood return, all ports aspirated, flushed, capped, sterile dressing applied Post procedure x-ray: tip of catheter in good position, no pneumothorax seen Patient tolerated procedure: well, other (Attempt #1 Right IJ failed, catheter would not advance. Attempt #2 Left IJ successful, no complications. )
--- NOTE | 2022-05-13 18:25 | General Surgery Progress Note ---
Surgical - Auxillary Note - Subjective Patient Information: Note initiated : 05/13/22 at 6:23 pm Service Date, if different from initiated Date: [] Patient: Debra Walker 76 y/o F admitted on 05/13/22 for N/V/D, headache. Chief Complaint: [Hypotension, suspect sepsis. Called by hospitalist for central line access. Patient assessed, sedated, ultrasound used. Attempt #1 Right IJ unsuccessful due to catheter not advancing, suspect calcification or thrombus. Attempt #2 Left IJ successful, no complications.
[2022-05-13] MEDS ORDERED: ACETAMINOPHEN 1,000 MG/100 ML BAG IV ONE ×2 (18:38→20:17)
[2022-05-13] MEDS: INSULIN LISPRO 1 UNIT/0.01 ML UNIT SQ SCH ×2 (18:49→21:06)
[2022-05-13 19:26] LABS: ABG Methemoglobin 0.1 % (0.4-1.5); Total Hemoglobin 10.8 gm/Dl (12.0-15.0); VBG Base Excess -4 (-2-3); VBG HCO3 22.3 mmol/L (24.0-28.0); VBG Oxygen Saturation 79.4 % (40.0-70.0); VBG PH 7.32 U (7.32-7.42); VBG PO2 49.1 mmHg (25.0-40.0); VBG Total CO2 23.6 mmol/L (25.0-29.0)
[2022-05-13] MEDS: 0.9 % SODIUM CHLORIDE 250 ML IV SCH ×3 (19:26→23:08)
[2022-05-13] MEDS: NOREPINEPHRINE BITARTRATE 16 MG in 0.9 % SODIUM CHLORIDE 234 ML IV SCH (19:26)
[2022-05-13] MEDS: PIPERACILLIN SODIUM/TAZOBACTAM 2.25 GM in DEXTROSE 5% IN WATER 50 ML IV SCH (20:27)
[2022-05-13] MEDS: HEPARIN 5,000 UNIT/ML VIAL SQ SCH (21:04)
[2022-05-13] MEDS: 0.9 % SODIUM CHLORIDE 10 ML SYRINGE IV SCH (21:06)
--- NOTE | 2022-05-13 21:17 | XRay Report ---
INDICATION: Central Line Placement TECHNIQUE: AP chest x-ray chest x-ray COMPARISON: Previous examinations dated 11/15/2021, 10/08/2021 FINDINGS: Left central venous catheter with its tip at the brachiocephalic vein, just proximal to the superior vena cava. There is no left pneumothorax. Lungs are negative. No parenchymal infiltrate or mass. Heart size and vascularity are normal. Mediastinum negative IMPRESSION: Left central venous catheter with its tip in the brachiocephalic vein Interpreted and Authenticated by: Kailash Campos 05/13/22
[2022-05-13] MEDS ORDERED: 0.9 % SODIUM CHLORIDE 10 ML SYRINGE IV SCH (22:00)
[2022-05-13] MEDS ORDERED: VASOPRESSIN 20 UNIT in DEXTROSE 5% IN WATER 99 ML IV SCH (22:30)
[2022-05-13] MEDS ORDERED: VASOPRESSIN 20 UNIT/ML VIAL ONE (22:53)
[2022-05-14] MEDS ORDERED: HYDROCORTISONE SOD SUCC 100 MG VIAL ONE ×2 (00:18→00:36)
[2022-05-14] MEDS: HYDROCORTISONE SOD SUCC 100 MG VIAL IV SCH ×5 (00:21→17:21)
[2022-05-14] MEDS: PIPERACILLIN SODIUM/TAZOBACTAM 2.25 GM in DEXTROSE 5% IN WATER 50 ML IV SCH ×4 (00:35→22:11)
[2022-05-14] MEDS: LACTATED RINGERS 1,000 ML IV SCH ×2 (03:35→17:11)
[2022-05-14] MEDS: LOPERAMIDE 2 MG CAPSULE PO SCH ×4 (04:25→20:40)
[2022-05-14 06:14] LABS: Basophils # (Auto) 0.04 K/mcL (0.00-0.30); Basophils % (Auto) 0.3 % (0.0-2.0); Eosinophils # (Auto) 0.03 K/mcL (0.00-0.70); Eosinophils % (Auto) 0.2 % (0.0-7.0); Hematocrit 30.3 % (34.1-44.9); Hemoglobin 9.8 g/dL (11.2-15.7); Lymphocytes # (Auto) 0.82 K/mcL (1.50-4.80); Lymphocytes % (Auto) 6.1 % (15.5-49.0); Mean Cell Volume 101.7 fL (80.0-100.0); Mean Corpuscular HGB Conc 32.3 g/dL (31.0-36.0); Mean Platelet Volume 9.7 fL (7.4-10.4); Monocytes # (Auto) 0.59 K/mcL (0.10-0.90); Monocytes % (Auto) 4.4 % (1.0-12.0); Platelet Count 340 K/mcL (140-440); RBC 2.98 M/mcL (3.59-5.38); Red Cell Distribution Width 13.5 % (11.5-14.5); WBC 13.4 K/mcL (4.5-11.0)
[2022-05-14 06:44] LABS: Blood Urea Nitrogen 34 mg/dL (8-23); Calcium 8.2 mg/dL (8.6-10.4); Carbon Dioxide 19 mmol/L (22-30); Chloride 92 mmol/L (96-108); Glomerular Filtration Rate 5; Glucose 382 mg/dL (70-105)
--- NOTE | 2022-05-14 06:57 | Nephrology Progress Note ---
SUBJECTIVE Subjective Patient information: Note initiated : 05/14/22 at 6:55 am Patient: Debra Walker 76 y/o F admitted on 05/13/22 for N/V/D, headache. Chief Complaint: Nausea, vomiting, diarrhea Pertinent ROS: Weakness Feels better PD fluid clear Nava catheter with clear urine Constitutional Vitals: Vital Signs Temp Pulse Resp BP Pulse Ox 99.6 F H 90 20 140/45 95 05/14/22 06:01 05/14/22 06:01 05/14/22 06:01 05/14/22 06:01 05/14/22 06:01 Period Temp Pulse Resp BP Sys/Horn Pulse Ox Last 24 Hr 96.5 F-99.9 F 67-112 7-27 47-154/17-95 85-100 Intake and Output 05/13/22 05/14/22 05/14/22 21:59 05:59 13:59 Intake Total 1177 1055 493 Output Total 5 6 Balance 1172 1049 493 Weight 194 lb 11.2 oz 195 lb 1 oz Intake & Output: Intake & Output 05/13/22 05/14/22 05/14/22 21:59 05:59 13:59 Intake Total 1177 1055 493 Output Total 5 6 Balance 1172 1049 493 Weight 194 lb 11.2 oz 195 lb 1 oz Intake: IV 1177 1055 93 Sodium Chloride 0.9% 500 ml @ 1000 Wide Open IV BOLUS ONE Rx#: [id number] Lactated Ringers 1,000 ml @ 75 905 mls/hr IV .[id number] YO Rx#: [id number] Levophed 16 mg In Sodium 27 65 Chloride 0.9% 234 ml @ 10 MCG/ MIN 9.375 mls/hr IV Q24H YO Rx #:[id number] Zosyn 2.25 gm In Dextrose 5% in 50 50 50 Water 50 ml @ 100 mls/hr IV Q8H YO Rx#:[id number] Vasostrict 20 Unit In Dextrose 35 43 5% in Water 99 ml @ 0.02 UNIT/ MIN 6 mls/hr IV Q17H YO Rx#: [id number] Oral 400 Output: Urine Catheter Amount 5 6 Other: Urine Appearance Clear Clear Urine Color Straw Light Sushma Stool Size Small Stool Color Black Stool Consistency Loose General appearance: cooperative and no acute distress Head Head exam: Present normal inspection Eye Eye exam: Present normal appearance ENT ENT exam: Present mucous membranes moist Respiratory Respiratory exam: Absent respiratory distress Cardiovascular Cardiovascular exam: Present normal rate and rhythm GI/Abdominal GI/Abdominal exam: Present soft; Absent tenderness Extremities Exam Extremities exam: Absent joint swelling or pedal edema Neurological Exam Neurological exam: Present alert and oriented X3 Psychiatric Psychiatric exam: Present normal affect and normal mood Skin Skin exam: Present warm; Absent rash A/P Assessment and plan (1) End-stage renal disease on peritoneal dialysis: Assessment and plan: Debra Walker is a 76-year-old female with end stage renal disease on peritoneal dialysis, 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 She presented to [facility] ED for nausea, vomiting, and diarrhea. She also had abdominal pain. Her symptoms started about 1 month ago. Vitals were significant for hypotension (BP 85/36). Labs were significant for leukocytosis. No obvious source was identified. She received 1L IV fluids. Cefepime 1g IV ordered. Nephrology consultation was requested for end stage renal disease. End stage renal disease on peritoneal dialysis. Chronic anemia due to ESRD. Hypotension with dehydration and suspected sepsis. Hypokalemia. Metabolic acidosis. Nausea, vomiting, diarrhea. Workup: CT Abdomen and Pelvis on 05/13/22: Peritoneal dialysis catheter in the pelvis. Prominent free intraperitoneal fluid and intraperitoneal gas bubbles. No intra- abdominal abscess identified. Severe atherosclerotic calcification including coronary artery calcification. Visceral arteries are also calcified. Bilateral renal atrophy. Previous cholecystectomy and probable hysterectomy. Labs on 05/13/22: Urinalysis sushma, cloudy, pH 5.0, SG 1.024, protein negative, blood 0.03, leukocyte esterase 250. Labs on 05/13/22: WBC 16.7 (neutrophils 83.3%), venous lactate 2.6, lipase 52, Previous Workup: PD Fluid on 05/11/22: Colorless, clear, Nucleated 72 (Neutrophils 34%, Lymph 16%, [place] 27%, [place] 23%), RBC <50,000. Recommendations/Plan: Continue CCPD nightly, 1.5%; fill volume 2,400 ml, 4 exchanges, 10 hours, last fill 2,400 ml. 24 hour urine collection for adequacy for PD nurse. Status: Chronic Time Spent With Patient Time: Total time spent is greater than 50% in coordination of care (as documented) at patient's floor/unit and/or counseling patient:
[2022-05-14] MEDS: 0.9 % SODIUM CHLORIDE 250 ML IV SCH ×3 (07:20→20:01)
[2022-05-14] MEDS: VASOPRESSIN 20 UNIT in DEXTROSE 5% IN WATER 99 ML IV SCH ×2 (07:21→18:04)
[2022-05-14] MEDS: INSULIN LISPRO 1 UNIT/0.01 ML UNIT SQ SCH ×4 (07:32→20:36)
--- NOTE | 2022-05-14 08:56 | Internal Med Progress Note ---
SUBJECTIVE Subjective Patient information: Note initiated : 05/14/22 at 8:53 am Service Date, if different from initiated Date: [] Patient: Debra Walker 76 y/o F admitted on 05/13/22 for N/V/D, headache. Chief Complaint: [Malaise, diarrhea, weakness] Principal diagnosis: Septic shock Interval history: The patient had a central line placed by anesthesia yesterday evening after my conversation with them. Her lactic acid continue to climb upwards despite initial 2 L bolus. She was started on Levophed which was maxed out at 20 mcg/min however we were unable to maintain a MAP of greater than 65. Vasopressin was subsequently added. I also added stress dose steroids with Hydrocort. This morning, she is looking much better. Discussed the case with the RN, her PD nurses at the bedside, and her at the bedside. Constitutional Vitals: Vital Signs Temp Pulse Resp BP Pulse Ox 99.4 F H 88 17 128/90 95 05/14/22 08:04 05/14/22 07:31 05/14/22 08:04 05/14/22 08:04 05/14/22 07:31 Period Temp Pulse Resp BP Sys/Horn Pulse Ox Last 24 Hr 96.5 F-99.9 F 67-112 7-27 47-154/17-95 82-100 Intake and Output 05/13/22 05/14/22 05/14/22 21:59 05:59 13:59 Intake Total 1177 1055 837 Output Total 5 6 Balance 1172 1049 837 Weight 88.314 kg 88.479 kg Intake & Output: Intake & Output 05/13/22 05/14/22 05/14/22 21:59 05:59 13:59 Intake Total 1177 1055 837 Output Total 5 6 Balance 1172 1049 837 Weight 88.314 kg 88.479 kg Intake: IV 1177 1055 437 Sodium Chloride 0.9% 250 ml @ 238 20 mls/hr IV .[id number] [facility] Rx#: [id number] Sodium Chloride 0.9% 500 ml @ 1000 Wide Open IV BOLUS ONE Rx#: [id number] Lactated Ringers 1,000 ml @ 75 905 mls/hr IV .[id number] YO Rx#: [id number] Levophed 16 mg In Sodium 27 65 106 Chloride 0.9% 234 ml @ 10 MCG/ MIN 9.375 mls/hr IV Q24H [facility] Rx #:[id number] Zosyn 2.25 gm In Dextrose 5% in 50 50 50 Water 50 ml @ 100 mls/hr IV Q8H [facility] Rx#:[id number] Vasostrict 20 Unit In Dextrose 35 43 5% in Water 99 ml @ 0.02 UNIT/ MIN 6 mls/hr IV Q17H [facility] Rx#: [id number] Oral 400 Output: Urine Catheter Amount 5 6 Other: Urine Appearance Clear Clear Urine Color Straw Light [place] Stool Size Small Stool Color Black Stool Consistency Loose Head Head exam: Present atraumatic and normal inspection Eye Eye exam: Present normal appearance ENT ENT exam: Present mucous membranes moist, normal exam and normal external ear exam Neck Neck exam: Present normal inspection Respiratory Respiratory exam: Present normal respiratory exam Cardiovascular Cardiovascular exam: Present normal rate and rhythm GI/Abdominal GI/Abdominal exam: Present normal bowel sounds Back Exam Back exam: Present normal inspection Neurological Exam Neurological exam: Present alert and oriented X3 Skin Skin exam: Present intact and warm OBJ DATA Labs CBC & Chem 7: 05/14/22 05:08 05/14/22 05:08 Labs: Abnormal Lab Results 05/14/22 05/14/22 05/13/22 05:08 05:08 Unknown WBC 13.4 H RBC 2.98 L Hgb 9.8 L Hct 30.3 L MCV 101.7 H Neut % (Auto) 89.0 H Lymph % (Auto) 6.1 L Lymph # (Auto) 0.82 L [place] # (Auto) Absolute Neutrophils 11.91 H ABG Methemoglobin VBG pO2 VBG HCO3 VBG Total CO2 VBG O2 Saturation VBG Base Excess VBG Lactic Acid Carboxyhemoglobin Total Hemoglobin Sodium 131 L POC Potassium Potassium 3.2 L 3.1 L Chloride 92 L 90 L Carbon Dioxide 19 L 18 L Anion Gap 20.0 H 27.0 H POC BUN BUN 34 H 36 H Creatinine 7.3 H* 8.3 H* POC Creatinine Glucose 382 H 209 H POC Glucose Calcium 8.2 L POC WB Ioniz Calcium C-Reactive Protein 8.90 H Albumin/Globulin Ratio 0.9 L Urine Appearance Urine Ketones Urine Bilirubin Ur Leukocyte Esterase Urine RBC Urine WBC Ur Squamous Epith Cells Urine Bacteria Urine Mucus 05/13/22 05/13/22 05/13/22 Unknown 19:07 18:52 WBC 16.7 H RBC 3.57 L Hgb Hct MCV 101.1 H Neut % (Auto) 83.3 H Lymph % (Auto) 9.7 L Lymph # (Auto) [place] # (Auto) 1.01 H Absolute Neutrophils 13.90 H ABG Methemoglobin 0.1 L VBG pO2 49.1 H VBG HCO3 22.3 L VBG Total CO2 23.6 L VBG O2 Saturation 79.4 H VBG Base Excess -4 L VBG Lactic Acid 2.3 H Carboxyhemoglobin 4.5 H Total Hemoglobin 10.8 L Sodium POC Potassium Potassium Chloride Carbon Dioxide Anion Gap POC BUN BUN Creatinine POC Creatinine Glucose POC Glucose Calcium POC WB Ioniz Calcium C-Reactive Protein Albumin/Globulin Ratio Urine Appearance Urine Ketones Urine Bilirubin Ur Leukocyte Esterase Urine RBC Urine WBC Ur Squamous Epith Cells Urine Bacteria Urine Mucus 05/13/22 05/13/22 05/13/22 14:51 12:45 11:55 WBC RBC Hgb Hct MCV Neut % (Auto) Lymph % (Auto) Lymph # (Auto) [place] # (Auto) Absolute Neutrophils ABG Methemoglobin VBG pO2 VBG HCO3 VBG Total CO2 VBG O2 Saturation VBG Base Excess VBG Lactic Acid 2.6 H 2.6 H Carboxyhemoglobin Total Hemoglobin Sodium POC Potassium Potassium Chloride Carbon Dioxide Anion Gap POC BUN BUN Creatinine POC Creatinine Glucose POC Glucose Calcium POC WB Ioniz Calcium C-Reactive Protein Albumin/Globulin Ratio Urine Appearance Cloudy A Urine Ketones 5 A Urine Bilirubin 4.0 A Ur Leukocyte Esterase 250 A Urine RBC 12 H Urine WBC 111 H Ur Squamous Epith Cells 13 H Urine Bacteria Few A Urine Mucus Few A 05/13/22 07:19 WBC RBC Hgb Hct MCV Neut % (Auto) Lymph % (Auto) Lymph # (Auto) [place] # (Auto) Absolute Neutrophils ABG Methemoglobin VBG pO2 VBG HCO3 VBG Total CO2 VBG O2 Saturation VBG Base Excess VBG Lactic Acid Carboxyhemoglobin Total Hemoglobin Sodium POC Potassium 3.1 L Potassium Chloride Carbon Dioxide Anion Gap POC BUN 35 H BUN Creatinine POC Creatinine 9.8 H* Glucose POC Glucose 213 H Calcium POC WB Ioniz Calcium 1.04 L C-Reactive Protein Albumin/Globulin Ratio Urine Appearance Urine Ketones Urine Bilirubin Ur Leukocyte Esterase Urine RBC Urine WBC Ur Squamous Epith Cells Urine Bacteria Urine Mucus Meds: Medications Acetaminophen (Acetaminophen 325 Mg Tablet) 650 mg PO Q6HP PRN; Protocol PRN Reason: Per Pain Protocol/Fever > 101 Last Admin: 05/13/22 16:36 Dose: 650 mg Documented by: Dextrose (Dextrose 50% 50 Ml Vial) 0 ml IV UD PRN PRN Reason: Per Sliding Scale Diagnostic Test (Pha) (Accu-Chek 1 Each Strip) 1 each FS ACHS [facility] Last Admin: 05/14/22 07:33 Dose: 1 each Documented by: Glucose (Dextrose 31 Gm Oral.Susp) 15 gm PO PRN PRN PRN Reason: Hypoglycemia Heparin Sodium (Porcine) (Heparin 5,000 Unit/Ml Vial) 5,000 unit SQ Q12 [facility] Last Admin: 05/13/22 21:04 Dose: 5,000 unit Documented by: Hydrocortisone Sodium Succinate (Hydrocortisone Sod Succ 100 Mg Vial) 50 mg IV Q6 [facility] Last Admin: 05/14/22 05:17 Dose: 50 mg Documented by: Lactated Ringer's (Lactated Ringers) 1,000 mls @ 75 mls/hr IV .[id number] [facility] Last Admin: 05/14/22 03:35 Dose: 75 mls/hr Documented by: Piperacillin Sod/Tazobactam (Sod 2.25 gm/ Dextrose) 50 mls @ 100 mls/hr IV Q8H [facility]; Protocol Last Infusion: 05/14/22 06:01 Dose: Infused Documented by: Norepinephrine Bitartrate 16 (mg/ Sodium Chloride) 250 mls @ 9.375 mls/hr IV Q24H [facility]; Protocol Last Titration: 05/14/22 08:32 Dose: 10 mcg/min, 9.375 mls/hr Documented by: Sodium Chloride (Sodium Chloride 0.9%) 250 mls @ 20 mls/hr IV .[id number] [facility] Last Admin: 05/14/22 07:20 Dose: 20 mls/hr Documented by: Sodium Chloride (Sodium Chloride 0.9%) 250 mls @ 20 mls/hr IV .[id number] [facility] Last Admin: 05/13/22 23:08 Dose: Not Given Documented by: Vasopressin 20 unit/ Dextrose 100 mls @ 6 mls/hr IV Q12H [facility]; Protocol Last Admin: 05/14/22 07:21 Dose: 0.04 unit/min, 12 mls/hr Documented by: Insulin Human Lispro (Insulin Lispro 1 Unit/0.01 Ml Unit) 0 unit SQ ACHS [facility]; Protocol Last Admin: 05/14/22 07:32 Dose: 8 units Documented by: Loperamide HCl (Loperamide 2 Mg Capsule) 2 mg PO Q6H [facility] Last Admin: 05/14/22 04:25 Dose: Not Given Documented by: Ondansetron HCl (Ondansetron 4 Mg/2 Ml Vial) 4 mg IV Q4HP PRN; Protocol PRN Reason: Nausea And Vomiting Last Admin: 05/13/22 16:53 Dose: 4 mg Documented by: Sodium Chloride (0.9 % Sodium Chloride 10 Ml Syringe) 10 ml IV Q12 [facility] Last Admin: 05/13/22 21:06 Dose: 10 ml Documented by: Sodium Chloride (0.9 % Sodium Chloride 10 Ml Syringe) 10 ml IV UD PRN PRN Reason: See instructions Last Admin: 05/14/22 05:19 Dose: 10 ml Documented by: ABG Interpretation ABG results: 05/13/22 19:07 ABG Methemoglobin 0.1 L VBG pH 7.32 VBG pCO2 44.0 VBG pO2 49.1 H VBG HCO3 22.3 L VBG Total CO2 23.6 L VBG O2 Saturation 79.4 H VBG Base Excess -4 L A/P Assessment and plan (1) Gastroenteritis: Status: Acute (2) Nausea & vomiting: Status: Acute (3) Diabetes mellitus, type II: Status: Chronic (4) Hyperlipidemia: Status: Chronic (5) Hypertension, essential: Status: Chronic (6) Muscle weakness (generalized): Status: Chronic (7) Sepsis: Status: Acute Narrative A/P Narrative: The patient has underlying ESRD on PD and presents with a septic picture with ongoing hypotension and lactic acidosis. The patient's CT abdomen pelvis was unrevealing. We will recheck any ascitic fluid to rule out SBP. C. difficile has been ruled out. I discussed CODE STATUS with the and she is indeed a full code. Nephrology has been consulted to assist with management and she will undergo peritoneal dialysis. She may need CRRT. 05/14: The patient's shock is likely distributive as her ScVO2 was greater than 70%. Her MAP is greater than 65, CVP is 10, SVO 2 greater than 70% however her urinary output is minimal but she does have end-stage renal disease. Her lactic acid is normalized to 1.6. We will wean down her vasopressin and Levophed. Etiology remains unclear as her CT abdomen pelvis was unrevealing. Stool cultures are pending as she did have diarrhea. C. difficile was negative. She is being ruled out for SBP. Continue empiric Zosyn. She has a Nava catheter in place and nephrology is managing her PD. Time Spent With Patient Time: Total time spent is greater than 50% in coordination of care (as documented) at patient's floor/unit and/or counseling patient: Total time spent with greater than 50% in coordination of care (as documented) at patient's floor/unit and/or counseling patient:: 35 - 50 minutes Total Critical Care Time: 50
[2022-05-14] MEDS: 0.9 % SODIUM CHLORIDE 10 ML SYRINGE IV SCH ×2 (09:20→20:38)
[2022-05-14] MEDS: HEPARIN 5,000 UNIT/ML VIAL SQ SCH ×2 (09:20→20:36)
[2022-05-14] MEDS ORDERED: VASOPRESSIN 20 UNIT in DEXTROSE 5% IN WATER 99 ML IV SCH (15:13)
[2022-05-14] MEDS ORDERED: FAMOTIDINE 20 MG TABLET PO PRN (15:37)
[2022-05-14] MEDS: NOREPINEPHRINE BITARTRATE 16 MG in 0.9 % SODIUM CHLORIDE 234 ML IV SCH (20:10)
[2022-05-14] MEDS: INSULIN GLARGINE, HUMAN 1 UNIT/0.01 ML SQ SCH (20:36)
[2022-05-14] MEDS: MELATONIN 3 MG TABLET PO PRN (20:36)
[2022-05-15] MEDS: 0.9 % SODIUM CHLORIDE 250 ML IV SCH ×4 (03:12→19:14)
[2022-05-15] MEDS: HYDROCORTISONE SOD SUCC 100 MG VIAL IV SCH ×2 (03:13→06:55)
[2022-05-15] MEDS: LOPERAMIDE 2 MG CAPSULE PO SCH ×4 (03:40→22:06)
[2022-05-15] MEDS: PIPERACILLIN SODIUM/TAZOBACTAM 2.25 GM in DEXTROSE 5% IN WATER 50 ML IV SCH ×3 (05:07→22:13)
[2022-05-15] MEDS: LACTATED RINGERS 1,000 ML IV SCH (06:48)
[2022-05-15 07:42] LABS: Estimated Average Glucose(eAG) 146 mg/dL; Hemoglobin A1C 6.7 % Hgb (4.0-6.0)
[2022-05-15] MEDS: OMEPRAZOLE 20 MG CAPSULE PO SCH (07:55)
[2022-05-15] MEDS: INSULIN LISPRO 1 UNIT/0.01 ML UNIT SQ SCH ×4 (08:02→20:19)
[2022-05-15 08:06] LABS: Basophils # (Auto) 0.01 K/mcL (0.00-0.30); Basophils % (Auto) 0.1 % (0.0-2.0); Eosinophils # (Auto) 0.01 K/mcL (0.00-0.70); Eosinophils % (Auto) 0.1 % (0.0-7.0); Hematocrit 23.2 % (34.1-44.9); Hemoglobin 7.6 g/dL (11.2-15.7); Lymphocytes # (Auto) 0.79 K/mcL (1.50-4.80); Lymphocytes % (Auto) 7.4 % (15.5-49.0); Mean Cell Volume 98.3 fL (80.0-100.0); Mean Corpuscular HGB Conc 32.8 g/dL (31.0-36.0); Mean Platelet Volume 9.7 fL (7.4-10.4); Monocytes # (Auto) 0.43 K/mcL (0.10-0.90); Neutrophils % (Auto) 88.4 % (38.0-78.0); Platelet Count 204 K/mcL (140-440); RBC 2.36 M/mcL (3.59-5.38); Red Cell Distribution Width 13.3 % (11.5-14.5); WBC 10.7 K/mcL (4.5-11.0)
[2022-05-15 08:08] LABS: ALT/SGPT 15 U/L (<40); AST/SGOT 14 U/L (<32); Albumin 2.5 gm/dL (3.2-5.2); Alkaline Phosphatase 72 U/L (39-117); Bilirubin,Total 0.2 mg/dL (0.1-1.0); Blood Urea Nitrogen 29 mg/dL (8-23); Carbon Dioxide 22 mmol/L (22-30); Chloride 92 mmol/L (96-108); Globulin 2.4 gm/dL (2.2-3.7); Glomerular Filtration Rate 6; Glucose 316 mg/dL (70-105)
[2022-05-15 08:09] LABS: Phosphorous 6.3 mg/dL (2.5-4.5)
--- NOTE | 2022-05-15 08:17 | Nephrology Progress Note ---
SUBJECTIVE Subjective Patient information: Note initiated : 05/15/22 at 8:15 am Patient: Debra Walker 76 y/o F admitted on 05/13/22 for N/V/D, headache. Chief Complaint: Nausea, vomiting, diarrhea. Principal diagnosis: Septic shock Pertinent ROS: Feels better Constitutional Vitals: Vital Signs Temp Pulse Resp BP Pulse Ox 98.2 F 70 21 120/55 95 05/15/22 06:52 05/15/22 06:52 05/15/22 06:52 05/15/22 06:01 05/15/22 06:52 Period Temp Pulse Resp BP Sys/Horn Pulse Ox Last 24 Hr 94.7 F-99.6 F 66-82 13-27 73-148/34-91 94-100 Intake and Output 05/14/22 05/15/22 05/15/22 21:59 05:59 13:59 Intake Total 3227 704 8554 Output Total 55 115 Balance 1781 35 1083 Weight 205 lb Intake & Output: Intake & Output 05/14/22 05/15/22 05/15/22 21:59 05:59 13:59 Intake Total 5681 705 1762 Output Total 55 115 Balance 1781 35 1083 Weight 205 lb Intake: IV 1436 50 1083 Sodium Chloride 0.9% 250 ml @ 250 20 mls/hr IV .[id number] [facility] Rx#: [id number] Lactated Ringers 1,000 ml @ 75 1000 1000 mls/hr IV .[id number] [facility] Rx#: [id number] Levophed 16 mg In Sodium 36 Chloride 0.9% 234 ml @ 10 MCG/ MIN 9.375 mls/hr IV Q24H [facility] Rx #:[id number] Zosyn 2.25 gm In Dextrose 5% in 50 50 Water 50 ml @ 100 mls/hr IV Q8H [facility] Rx#:[id number] Vasostrict 20 Unit In Dextrose 100 83 5% in Water 99 ml @ 0.02 UNIT/ MIN 6 mls/hr IV Q12H [facility] Rx#: [id number] Oral 400 100 Output: Urine Catheter Amount 55 115 Other: Meal Dinner Percent of Meal Consumed 25% Feeding Ability Assist with Tray Set Up Urine Appearance Clear Clear Uretheral (Nava) Clear Clear Urine Color Straw Pale Uretheral (Nava) Straw Pale Stool Size Small Stool Consistency Loose General appearance: cooperative and no acute distress Head Head exam: Present normal inspection Eye Eye exam: Present normal appearance ENT ENT exam: Present mucous membranes moist Respiratory Respiratory exam: Absent respiratory distress Cardiovascular Cardiovascular exam: Present normal rate and rhythm GI/Abdominal GI/Abdominal exam: Present soft; Absent tenderness Extremities Exam Extremities exam: Absent joint swelling or pedal edema Neurological Exam Neurological exam: Present alert and oriented X3 Psychiatric Psychiatric exam: Present normal affect and normal mood Skin Skin exam: Present warm; Absent rash A/P Assessment and plan (1) End-stage renal disease on peritoneal dialysis: Assessment and plan: Debra Walker is a 76-year-old female with end stage renal disease on peritoneal dialysis, 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 She presented to [facility] ED for nausea, vomiting, and diarrhea. She also had abdominal pain. Her symptoms started about 1 month ago. Vitals were significant for hypotension (BP 85/36). Labs were significant for leukocytosis. No obvious source was identified. She received 1L IV fluids. Cefepime 1g IV ordered. Nephrology consultation was requested for end stage renal disease. End stage renal disease on peritoneal dialysis. Chronic anemia due to ESRD. Hypotension, resolved. Hyponatremia, hypokalemia, metabolic acidosis associated with ESRD and IVF. Nausea, vomiting, diarrhea, uncertain etiology, resolved. GI work up was scheduled as outpatient. Peritoneal dialysis related peritonitis ruled out. PD fluid is clear. Fluid overload. I/O: +6.5L since admit associated with IVF. Workup: CT Abdomen and Pelvis on 05/13/22: Peritoneal dialysis catheter in the pelvis. Prominent free intraperitoneal fluid and intraperitoneal gas bubbles. No intra-abdominal abscess identified. Severe atherosclerotic calcification including coronary artery calcification. Visceral arteries are also calcified. Bilateral renal atrophy. Previous cholecystectomy and probable hysterectomy. Labs on 05/13/22: Urinalysis sushma, cloudy, pH 5.0, SG 1.024, protein negative, blood 0.03, leukocyte esterase 250. Labs on 05/13/22: WBC 16.7 (neutrophils 83.3%), venous lactate 2.6, lipase 52, Previous Workup: PD Fluid on 05/11/22: Colorless, clear, Nucleated 72 (Neutrophils 34%, Lymph 16%, [place] 27%, [place] 23%), RBC <50,000. Recommendations/Plan: Continue CCPD nightly, 1.5%; fill volume 2,400 ml, 4 exchanges, 10 hours, last fill 2,400 ml. Status: Chronic Time Spent With Patient Time: Total time spent is greater than 50% in coordination of care (as documented) at patient's floor/unit and/or counseling patient:
--- NOTE | 2022-05-15 09:12 | Internal Med Progress Note ---
SUBJECTIVE Subjective Patient information: Note initiated : 05/15/22 at 9:10 am Service Date, if different from initiated Date: [] Patient: Debra Walker 76 y/o F admitted on 05/13/22 for N/V/D, headache. Chief Complaint: [] Principal diagnosis: Septic shock Interval history: 05/15: Afebrile overnight. Fasting glucose 377. Blood and urine cultures no growth to date. Vasopressin switched off; Levophed drip still on 2mcg/min. Patient is c/o weakness. Denies abdominal pain. Denies GI symptoms such as nausea vomiting diarrhea or constipation. Denies fever chills or sweating. Continue Zosyn. Continue to wean Levophed drip as tolerated. Constitutional Vitals: Vital Signs Temp Pulse Resp BP Pulse Ox 36.8 C 70 21 120/55 95 05/15/22 06:52 05/15/22 06:52 05/15/22 06:52 05/15/22 06:01 05/15/22 06:52 Period Temp Pulse Resp BP Sys/Horn Pulse Ox Last 24 Hr 34.8 C-37.4 C 66-82 13-27 73-147/34-91 94-100 Intake and Output 05/14/22 05/15/22 05/15/22 21:59 05:59 13:59 Intake Total 5129 981 4322 Output Total 55 115 Balance 1781 35 1083 Weight 92.986 kg Intake & Output: Intake & Output 05/14/22 05/15/22 05/15/22 21:59 05:59 13:59 Intake Total 6759 063 8190 Output Total 55 115 Balance 1781 35 1083 Weight 92.986 kg Intake: IV 1436 50 1083 Sodium Chloride 0.9% 250 ml @ 250 20 mls/hr IV .[id number] YO Rx#: [id number] Lactated Ringers 1,000 ml @ 75 1000 1000 mls/hr IV .[id number] YO Rx#: [id number] Levophed 16 mg In Sodium 36 Chloride 0.9% 234 ml @ 10 MCG/ MIN 9.375 mls/hr IV Q24H YO Rx #:[id number] Zosyn 2.25 gm In Dextrose 5% in 50 50 Water 50 ml @ 100 mls/hr IV Q8H YO Rx#:[id number] Vasostrict 20 Unit In Dextrose 100 83 5% in Water 99 ml @ 0.02 UNIT/ MIN 6 mls/hr IV Q12H [facility] Rx#: [id number] Oral 400 100 Output: Urine Catheter Amount 55 115 Other: Meal Dinner Percent of Meal Consumed 25% Feeding Ability Assist with Tray Set Up Urine Appearance Clear Clear Uretheral (Nava) Clear Clear Urine Color Straw Pale Uretheral (Nava) Straw Pale Stool Size Small Stool Consistency Loose Head Head exam: Present atraumatic and normal inspection Eye Eye exam: Present normal appearance ENT ENT exam: Present mucous membranes moist, normal exam and normal external ear exam Neck Neck exam: Present normal inspection Additional comments: Left IVJ central line in place Respiratory Respiratory exam: Present normal respiratory exam Cardiovascular Cardiovascular exam: Present irregular rhythm GI/Abdominal GI/Abdominal exam: Present normal bowel sounds Additional comments: PD catheter in place Back Exam Back exam: Present normal inspection Neurological Exam Neurological exam: Present alert and oriented X3 Skin Skin exam: Present intact and warm OBJ DATA Labs CBC & Chem 7: 05/15/22 05:24 05/15/22 05:24 Labs: Abnormal Lab Results 05/15/22 05/15/22 05/14/22 05:24 05:24 05:08 WBC RBC 2.36 L Hgb 7.6 L Hct 23.2 L MCV Neut % (Auto) 88.4 H Lymph % (Auto) 7.4 L Lymph # (Auto) 0.79 L [place] # (Auto) Absolute Neutrophils 9.42 H ABG Methemoglobin VBG pO2 VBG HCO3 VBG Total CO2 VBG O2 Saturation VBG Base Excess VBG Lactic Acid Carboxyhemoglobin Total Hemoglobin Sodium 131 L 131 L POC Potassium Potassium 3.0 L 3.2 L Chloride 92 L 92 L Carbon Dioxide 19 L Anion Gap 17.0 H 20.0 H POC BUN BUN 29 H 34 H Creatinine 6.5 H* 7.3 H* POC Creatinine Glucose 316 H 382 H POC Glucose Hemoglobin A1c 6.7 H Calcium 8.0 L 8.2 L POC WB Ioniz Calcium Phosphorus 6.3 H* Magnesium 1.3 L C-Reactive Protein 8.90 H Total Protein 4.9 L Albumin 2.5 L Albumin/Globulin Ratio Urine Appearance Urine Ketones Urine Bilirubin Ur Leukocyte Esterase Urine RBC Urine WBC Ur Squamous Epith Cells Urine Bacteria Urine Mucus 05/14/22 05/13/22 05/13/22 05:08 Unknown Unknown WBC 13.4 H 16.7 H RBC 2.98 L 3.57 L Hgb 9.8 L Hct 30.3 L MCV 101.7 H 101.1 H Neut % (Auto) 89.0 H 83.3 H Lymph % (Auto) 6.1 L 9.7 L Lymph # (Auto) 0.82 L [place] # (Auto) 1.01 H Absolute Neutrophils 11.91 H 13.90 H ABG Methemoglobin VBG pO2 VBG HCO3 VBG Total CO2 VBG O2 Saturation VBG Base Excess VBG Lactic Acid Carboxyhemoglobin Total Hemoglobin Sodium POC Potassium Potassium 3.1 L Chloride 90 L Carbon Dioxide 18 L Anion Gap 27.0 H POC BUN BUN 36 H Creatinine 8.3 H* POC Creatinine Glucose 209 H POC Glucose Hemoglobin A1c Calcium POC WB Ioniz Calcium Phosphorus Magnesium C-Reactive Protein Total Protein Albumin Albumin/Globulin Ratio 0.9 L Urine Appearance Urine Ketones Urine Bilirubin Ur Leukocyte Esterase Urine RBC Urine WBC Ur Squamous Epith Cells Urine Bacteria Urine Mucus 05/13/22 05/13/22 05/13/22 19:07 18:52 14:51 WBC RBC Hgb Hct MCV Neut % (Auto) Lymph % (Auto) Lymph # (Auto) [place] # (Auto) Absolute Neutrophils ABG Methemoglobin 0.1 L VBG pO2 49.1 H VBG HCO3 22.3 L VBG Total CO2 23.6 L VBG O2 Saturation 79.4 H VBG Base Excess -4 L VBG Lactic Acid 2.3 H 2.6 H Carboxyhemoglobin 4.5 H Total Hemoglobin 10.8 L Sodium POC Potassium Potassium Chloride Carbon Dioxide Anion Gap POC BUN BUN Creatinine POC Creatinine Glucose POC Glucose Hemoglobin A1c Calcium POC WB Ioniz Calcium Phosphorus Magnesium C-Reactive Protein Total Protein Albumin Albumin/Globulin Ratio Urine Appearance Urine Ketones Urine Bilirubin Ur Leukocyte Esterase Urine RBC Urine WBC Ur Squamous Epith Cells Urine Bacteria Urine Mucus 05/13/22 05/13/22 05/13/22 12:45 11:55 07:19 WBC RBC Hgb Hct MCV Neut % (Auto) Lymph % (Auto) Lymph # (Auto) [place] # (Auto) Absolute Neutrophils ABG Methemoglobin VBG pO2 VBG HCO3 VBG Total CO2 VBG O2 Saturation VBG Base Excess VBG Lactic Acid 2.6 H Carboxyhemoglobin Total Hemoglobin Sodium POC Potassium 3.1 L Potassium Chloride Carbon Dioxide Anion Gap POC BUN 35 H BUN Creatinine POC Creatinine 9.8 H* Glucose POC Glucose 213 H Hemoglobin A1c Calcium POC WB Ioniz Calcium 1.04 L Phosphorus Magnesium C-Reactive Protein Total Protein Albumin Albumin/Globulin Ratio Urine Appearance Cloudy A Urine Ketones 5 A Urine Bilirubin 4.0 A Ur Leukocyte Esterase 250 A Urine RBC 12 H Urine WBC 111 H Ur Squamous Epith Cells 13 H Urine Bacteria Few A Urine Mucus Few A Meds: Medications Acetaminophen (Acetaminophen 325 Mg Tablet) 650 mg PO Q6HP PRN; Protocol PRN Reason: Per Pain Protocol/Fever > 101 Last Admin: 05/13/22 16:36 Dose: 650 mg Documented by: Aspirin (Aspirin 81 Mg Tab.Chew) 81 mg PO DAILY [facility] Calcitriol (Calcitriol 0.25 Mcg Capsule) 0.25 mcg PO QDAY YO Clonazepam (Clonazepam 0.5 Mg Tablet) 1 mg PO QDAY PRN PRN Reason: Anxiety Dextrose (Dextrose 50% 50 Ml Vial) 0 ml IV UD PRN PRN Reason: Per Sliding Scale Diagnostic Test (Pha) (Accu-Chek 1 Each Strip) 1 each FS ACHS [facility] Last Admin: 05/15/22 07:49 Dose: 1 each Documented by: Famotidine (Famotidine 20 Mg Tablet) 20 mg PO DAILYP PRN PRN Reason: Acid Reflux Glucose (Dextrose 31 Gm Oral.Susp) 15 gm PO PRN PRN PRN Reason: Hypoglycemia Heparin Sodium (Porcine) (Heparin 5,000 Unit/Ml Vial) 5,000 unit SQ Q12 [facility] Last Admin: 05/14/22 20:36 Dose: 5,000 unit Documented by: Hydrocortisone Sodium Succinate (Hydrocortisone Sod Succ 100 Mg Vial) 50 mg IV Q6 [facility] Last Admin: 05/15/22 06:55 Dose: 50 mg Documented by: Lactated Ringer's (Lactated Ringers) 1,000 mls @ 75 mls/hr IV .[id number] [facility] Last Admin: 05/15/22 06:48 Dose: 75 mls/hr Documented by: Piperacillin Sod/Tazobactam (Sod 2.25 gm/ Dextrose) 50 mls @ 100 mls/hr IV Q8H [facility]; Protocol Last Admin: 05/15/22 05:07 Dose: 100 mls/hr Documented by: Norepinephrine Bitartrate 16 (mg/ Sodium Chloride) 250 mls @ 9.375 mls/hr IV Q24H [facility]; Protocol Last Admin: 05/14/22 20:10 Dose: 2 mcg/min, 1.875 mls/hr Documented by: Sodium Chloride (Sodium Chloride 0.9%) 250 mls @ 20 mls/hr IV .[id number] [facility] Last Admin: 05/14/22 20:01 Dose: 20 mls/hr Documented by: Sodium Chloride (Sodium Chloride 0.9%) 250 mls @ 20 mls/hr IV .[id number] [facility] Last Admin: 05/15/22 03:12 Dose: Not Given Documented by: Vasopressin 20 unit/ Dextrose 100 mls @ 6 mls/hr IV Q12H [facility]; Protocol Last Titration: 05/15/22 07:53 Dose: 0 unit/min, 0 mls/hr Documented by: Insulin Glargine (Insulin Glargine, Human 1 Unit/0.01 Ml) 62 unit SQ BID [facility] Last Admin: 05/14/22 20:36 Dose: 62 units Documented by: Insulin Human Lispro (Insulin Lispro 1 Unit/0.01 Ml Unit) 0 unit SQ ACHS [facility]; Protocol Last Admin: 05/15/22 08:02 Dose: 8 units Documented by: Loperamide HCl (Loperamide 2 Mg Capsule) 2 mg PO Q6H [facility] Last Admin: 05/15/22 03:40 Dose: Not Given Documented by: Melatonin (Melatonin 3 Mg Tablet) 15 mg PO HSP PRN PRN Reason: Insomnia Last Admin: 05/14/22 20:36 Dose: 15 mg Documented by: Omeprazole (Omeprazole 20 Mg Capsule) 20 mg PO ACB [facility] Last Admin: 05/15/22 07:55 Dose: 20 mg Documented by: Ondansetron HCl (Ondansetron 4 Mg/2 Ml Vial) 4 mg IV Q4HP PRN; Protocol PRN Reason: Nausea And Vomiting Last Admin: 05/13/22 16:53 Dose: 4 mg Documented by: Sodium Chloride (0.9 % Sodium Chloride 10 Ml Syringe) 10 ml IV Q12 YO Last Admin: 05/14/22 20:38 Dose: 10 ml Documented by: Sodium Chloride (0.9 % Sodium Chloride 10 Ml Syringe) 10 ml IV UD PRN PRN Reason: See instructions Last Admin: 05/14/22 05:19 Dose: 10 ml Documented by: Vitamin D (Vitamin D3 125 Mcg Tablet) 125 mcg PO QDAY YO ABG Interpretation ABG results: 05/13/22 19:07 ABG Methemoglobin 0.1 L VBG pH 7.32 VBG pCO2 44.0 VBG pO2 49.1 H VBG HCO3 22.3 L VBG Total CO2 23.6 L VBG O2 Saturation 79.4 H VBG Base Excess -4 L A/P Assessment and plan (1) Septic shock: Status: Acute (2) Diabetes mellitus, type II: Status: Chronic (3) Hypertension, essential: Status: Chronic (4) Hyperlipidemia: Status: Chronic (5) Anemia, normocytic normochromic: Status: Acute (6) Atrial fibrillation with RVR: Status: Acute (7) End-stage renal disease on peritoneal dialysis: Status: Chronic (8) Hypokalemia: Status: Acute (9) Hypomagnesemia: Status: Acute (10) Hyponatremia: Status: Acute Narrative A/P Narrative: Assessment and Plans: 1. Septic shock, unclear source of infection: Inpatient ICU Blood and urine cultures no growth to date; PD fluid does not suggest presence of SBP Zosyn Continue to wean off Levophed as tolerated d/c Solu-Medrol cbc w/ auto diff in the morning to trend WBC 2. ESRD on peritoneal dialysis: [facility] Supervisor consulted for PD needs, appreciated 3. Hyponatremia, hypokalemia, hypomagnesemia: Potassium and Magnesium PO replacement Repeat CMP and serum Mg level in the morning to trend levels 4. Permanent atrial fibrillation: Currently rate controlled, no Heparin PPX dose only, hold for therapeutic anticoagulation due to worsening anemia 5. Anemia, normocytic normochromic: Hold for therapeutic anticoagulation due to worsening anemia cbc w/ auto diff in the morning to trend H/H, transfuse if Hemoglobin <7.0 Occult blood screen 6. T2DM: HgA1c d/c Solu-Medrol Insulin Lantus 62 unit BID SSI AC HS Accu Chek AC HS Hypoglycemia protocol Diabetic diet 7. h/o Essential HTN: Currently septic shock, hold any oral antihypertensives GI ppx: oral PPI DVT ppx: Heparin Code status: Full Prognosis: guarded Disposition: inpatient ICU Critical Care Time: 45min Time Spent With Patient Time: Total time spent is greater than 50% in coordination of care (as documented) at patient's floor/unit and/or counseling patient: Total time spent with greater than 50% in coordination of care (as documented) at patient's floor/unit and/or counseling patient:: 50 - 70 minutes
[2022-05-15] MEDS: HEPARIN 5,000 UNIT/ML VIAL SQ SCH ×2 (09:20→20:08)
[2022-05-15] MEDS: INSULIN GLARGINE, HUMAN 1 UNIT/0.01 ML SQ SCH ×2 (09:20→20:19)
[2022-05-15] MEDS: ASPIRIN 81 MG TAB.CHEW PO SCH (09:20)
[2022-05-15] MEDS: CALCITRIOL 0.25 MCG CAPSULE PO SCH (09:20)
[2022-05-15] MEDS: VITAMIN D3 125 MCG TABLET PO SCH (09:20)
[2022-05-15] MEDS: VASOPRESSIN 20 UNIT in DEXTROSE 5% IN WATER 99 ML IV SCH ×2 (09:57→21:42)
[2022-05-15] MEDS ORDERED: POTASSIUM CHLORIDE 20 MEQ TABLET PO ONE (10:00)
[2022-05-15] MEDS: 0.9 % SODIUM CHLORIDE 10 ML SYRINGE IV SCH ×2 (13:44→20:20)
[2022-05-15] MEDS: POTASSIUM CHLORIDE 20 MEQ TABLET PO SCH (16:54)
[2022-05-15] MEDS ORDERED: VASOPRESSIN 20 UNIT/ML VIAL ONE (19:43)
[2022-05-15] MEDS: clonazePAM 0.5 MG TABLET PO PRN (19:50)
[2022-05-15] MEDS: OXYBUTYNIN CHLORIDE 5 MG TAB.XL.24H PO SCH (20:09)
[2022-05-15] MEDS: MAGNESIUM OXIDE 400 MG TABLET PO SCH (20:09)
[2022-05-15] MEDS: ACETAMINOPHEN 325 MG TABLET PO PRN (20:42)
[2022-05-15] MEDS: ACETAMINOPHEN 650 MG/65 ML BAG IV PRN (22:14)
[2022-05-15] MEDS: MELATONIN 3 MG TABLET PO PRN (22:15)
[2022-05-15] MEDS ORDERED: ACETAMINOPHEN 1,000 MG/100 ML BAG IV ONE (22:20)
[2022-05-15] MEDS: NOREPINEPHRINE BITARTRATE 16 MG in 0.9 % SODIUM CHLORIDE 234 ML IV SCH (22:39)
[2022-05-16] MEDS: LOPERAMIDE 2 MG CAPSULE PO SCH ×4 (02:52→20:55)
[2022-05-16] MEDS: PIPERACILLIN SODIUM/TAZOBACTAM 2.25 GM in DEXTROSE 5% IN WATER 50 ML IV SCH ×3 (05:10→22:05)
[2022-05-16 06:30] LABS: Basophils # (Auto) 0.01 K/mcL (0.00-0.30); Basophils % (Auto) 0.1 % (0.0-2.0); Eosinophils # (Auto) 0.03 K/mcL (0.00-0.70); Eosinophils % (Auto) 0.2 % (0.0-7.0); Hemoglobin 7.9 g/dL (11.2-15.7); Lymphocytes # (Auto) 1.28 K/mcL (1.50-4.80); Lymphocytes % (Auto) 10.7 % (15.5-49.0); Mean Cell Volume 98.8 fL (80.0-100.0); Mean Corpuscular HGB Conc 32.9 g/dL (31.0-36.0); Mean Platelet Volume 9.7 fL (7.4-10.4); Monocytes # (Auto) 0.71 K/mcL (0.10-0.90); Monocytes % (Auto) 5.9 % (1.0-12.0); Neutrophils % (Auto) 83.1 % (38.0-78.0); Platelet Count 232 K/mcL (140-440); RBC 2.43 M/mcL (3.59-5.38); Red Cell Distribution Width 13.7 % (11.5-14.5)
[2022-05-16 06:51] LABS: Phosphorous 5.4 mg/dL (2.5-4.5)
[2022-05-16] MEDS: INSULIN LISPRO 1 UNIT/0.01 ML UNIT SQ SCH ×4 (07:43→20:52)
[2022-05-16] MEDS: OMEPRAZOLE 20 MG CAPSULE PO SCH (07:43)
[2022-05-16] MEDS: VASOPRESSIN 20 UNIT in DEXTROSE 5% IN WATER 99 ML IV SCH ×2 (07:43→19:01)
[2022-05-16 08:07] LABS: ALT/SGPT 16 U/L (<40); AST/SGOT 14 U/L (<32); Albumin 2.7 gm/dL (3.2-5.2); Albumin/Globulin Ratio 1.1 (1.0-2.3); Alkaline Phosphatase 66 U/L (39-117); Bilirubin,Total 0.2 mg/dL (0.1-1.0); Blood Urea Nitrogen 37 mg/dL (8-23); Calcium 7.8 mg/dL (8.6-10.4); Carbon Dioxide 21 mmol/L (22-30); Chloride 93 mmol/L (96-108); Globulin 2.4 gm/dL (2.2-3.7); Glomerular Filtration Rate 6; Glucose 265 mg/dL (70-105)
[2022-05-16] MEDS: NOREPINEPHRINE BITARTRATE 16 MG in 0.9 % SODIUM CHLORIDE 234 ML IV SCH (08:18)
[2022-05-16] MEDS: POTASSIUM CHLORIDE 20 MEQ TABLET PO SCH ×2 (08:20→16:57)
[2022-05-16] MEDS: 0.9 % SODIUM CHLORIDE 250 ML IV SCH ×3 (08:32→22:29)
--- NOTE | 2022-05-16 09:23 | Nephrology Progress Note ---
SUBJECTIVE Subjective Patient information: Note initiated : 05/16/22 at 9:21 am Patient: Debra Walker 76 y/o F admitted on 05/13/22 for N/V/D, headache. Chief Complaint: nausea Principal diagnosis: Septic shock Pertinent ROS: Weakness Diarrhea Constitutional Vitals: Vital Signs Temp Pulse Resp BP Pulse Ox 98.6 F 65 25 H 130/63 99 05/16/22 09:01 05/16/22 09:01 05/16/22 09:01 05/16/22 09:01 05/16/22 09:01 Period Temp Pulse Resp BP Sys/Horn Pulse Ox Last 24 Hr 98.4 F-99.2 F 46-78 6-33 60-150/24-99 84-100 Intake and Output 05/15/22 05/16/22 05/16/22 21:59 05:59 13:59 Intake Total 771 316 306 Output Total 40 10 7 Balance 731 306 299 Weight 207 lb Intake & Output: Intake & Output 05/15/22 05/16/22 05/16/22 21:59 05:59 13:59 Intake Total 771 316 306 Output Total 40 10 7 Balance 731 306 299 Weight 207 lb Intake: IV 771 316 306 Sodium Chloride 0.9% 250 ml @ 104 250 20 mls/hr IV .[id number] YO Rx#: [id number] Lactated Ringers 1,000 ml @ 75 593 mls/hr IV .[id number] YO Rx#: [id number] Levophed 16 mg In Sodium 7 75 32 Chloride 0.9% 234 ml @ 10 MCG/ MIN 9.375 mls/hr IV Q24H YO Rx #:[id number] Zosyn 2.25 gm In Dextrose 5% in 50 100 Water 50 ml @ 100 mls/hr IV Q8H YO Rx#:[id number] Vasostrict 20 Unit In Dextrose 17 76 24 5% in Water 99 ml @ 0.02 UNIT/ MIN 6 mls/hr IV Q12H YO Rx#: [id number] Output: Urine Catheter Amount 40 10 7 Other: Urine Appearance Clear Clear Urine Color Bright Yellow Straw Urine Odor Normal Stool Size Moderate Moderate Stool Color Black Black Stool Consistency Loose Soft Liquid # of times incontinent of 1 1 Bowels General appearance: cooperative and no acute distress Head Head exam: Present normal inspection Eye Eye exam: Present normal appearance ENT ENT exam: Present mucous membranes moist Respiratory Respiratory exam: Absent respiratory distress Cardiovascular Cardiovascular exam: Present normal rate and rhythm GI/Abdominal GI/Abdominal exam: Present soft; Absent tenderness Extremities Exam Extremities exam: Absent joint swelling or pedal edema Neurological Exam Neurological exam: Present alert and oriented X3 Psychiatric Psychiatric exam: Present normal affect and normal mood Skin Skin exam: Present warm; Absent rash A/P Assessment and plan (1) End-stage renal disease on peritoneal dialysis: Assessment and plan: Debra Walker is a 76-year-old female with end stage renal disease on peritoneal dialysis, 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 She presented to [facility] ED for nausea, vomiting, and diarrhea. She also had abdominal pain. Her symptoms started about 1 month ago. Vitals were significant for hypotension (BP 85/36). Labs were significant for leukocytosis. No obvious source was identified. She received 1L IV fluids. Cefepime 1g IV ordered. Nephrology consultation was requested for end stage renal disease. End stage renal disease on peritoneal dialysis. Chronic anemia due to ESRD. Hypotension with severe diarrhea, restarted. She is back on IV pressors. Hyponatremia, hypokalemia, metabolic acidosis associated with ESRD. Peritoneal dialysis related peritonitis ruled out. PD fluid is clear. Workup: CT Abdomen and Pelvis on 05/13/22: Peritoneal dialysis catheter in the pelvis. Prominent free intraperitoneal fluid and intraperitoneal gas bubbles. No intra- abdominal abscess identified. Severe atherosclerotic calcification including coronary artery calcification. Visceral arteries are also calcified. Bilateral renal atrophy. Previous cholecystectomy and probable hysterectomy. Labs on 05/13/22: Urinalysis sushma, cloudy, pH 5.0, SG 1.024, protein negative, blood 0.03, leukocyte esterase 250. Labs on 05/13/22: WBC 16.7 (neutrophils 83.3%), venous lactate 2.6, lipase 52, Previous Workup: PD Fluid on 05/11/22: Colorless, clear, Nucleated 72 (Neutrophils 34%, Lymph 16%, [place] 27%, [place] 23%), RBC <50,000. Recommendations/Plan: LR at 50 ml/hr resumed. Continue CCPD nightly, 1.5%; fill volume 2,400 ml, 4 exchanges, 10 hours, last fill 2,400 ml. Status: Chronic Time Spent With Patient Time: Total time spent is greater than 50% in coordination of care (as documented) at patient's floor/unit and/or counseling patient:
[2022-05-16] MEDS: ASPIRIN 81 MG TAB.CHEW PO SCH (09:27)
[2022-05-16] MEDS: HEPARIN 5,000 UNIT/ML VIAL SQ SCH (09:27)
[2022-05-16] MEDS: CALCITRIOL 0.25 MCG CAPSULE PO SCH (09:33)
[2022-05-16] MEDS: INSULIN GLARGINE, HUMAN 1 UNIT/0.01 ML SQ SCH ×2 (09:33→20:51)
[2022-05-16] MEDS: VITAMIN D3 125 MCG TABLET PO SCH (09:33)
[2022-05-16] MEDS: MAGNESIUM OXIDE 400 MG TABLET PO SCH ×2 (09:33→20:52)
--- NOTE | 2022-05-16 09:33 | Internal Med Progress Note ---
SUBJECTIVE Subjective Patient information: Note initiated : 05/16/22 at 9:26 am Service Date, if different from initiated Date: [] Patient: Debra Walker 76 y/o F admitted on 05/13/22 for N/V/D, headache. Chief Complaint: [] Principal diagnosis: Septic shock Interval history: 05/15: Afebrile overnight. Fasting glucose 377. Blood and urine cultures no growth to date. Vasopressin switched off; Levophed drip still on 2mcg/min. Patient is c/o weakness. Denies abdominal pain. Denies GI symptoms such as nausea vomiting diarrhea or constipation. Denies fever chills or sweating. Continue Zosyn. Continue to wean Levophed drip as tolerated. 05/16: Afebrile overnight. Fasting glucose 301. Blood and urine cultures no growth to date. Vasopressin switched off; Levophed drip still on 6mcg/min. Stool guaiac positive. Hemoglobin 7.6-->7.6. I spoke with convict guard general surgeon Dr. Rodriguez, who recommended outpatient over inpatient endoscopy due to anesthesia risk. Patient is c/o weakness. She is c/o nausea. Denies abdominal pain. Denies fever chills or sweating. Continue Zosyn. Continue to wean Levophed drip as tolerated. Protonix IV BID, d/c Aspirin and Heparin. SCDs instead. Outpatient endoscopy. Continue nightly peritoneal dialysis. Constitutional Vitals: Vital Signs Temp Pulse Resp BP Pulse Ox 37.0 C 65 25 H 130/63 99 05/16/22 09:01 05/16/22 09:01 05/16/22 09:01 05/16/22 09:01 05/16/22 09:01 Period Temp Pulse Resp BP Sys/Horn Pulse Ox Last 24 Hr 36.9 C-37.3 C 46-78 6-33 60-150/24-99 84-100 Intake and Output 05/15/22 05/16/22 05/16/22 21:59 05:59 13:59 Intake Total 771 316 306 Output Total 40 10 7 Balance 731 306 299 Weight 93.894 kg Intake & Output: Intake & Output 05/15/22 05/16/22 05/16/22 21:59 05:59 13:59 Intake Total 771 316 306 Output Total 40 10 7 Balance 731 306 299 Weight 93.894 kg Intake: IV 771 316 306 Sodium Chloride 0.9% 250 ml @ 104 250 20 mls/hr IV .[id number] YO Rx#: [id number] Lactated Ringers 1,000 ml @ 75 593 mls/hr IV .[id number] YO Rx#: [id number] Levophed 16 mg In Sodium 7 75 32 Chloride 0.9% 234 ml @ 10 MCG/ MIN 9.375 mls/hr IV Q24H YO Rx #:[id number] Zosyn 2.25 gm In Dextrose 5% in 50 100 Water 50 ml @ 100 mls/hr IV Q8H YO Rx#:[id number] Vasostrict 20 Unit In Dextrose 17 76 24 5% in Water 99 ml @ 0.02 UNIT/ MIN 6 mls/hr IV Q12H [facility] Rx#: [id number] Output: Urine Catheter Amount 40 10 7 Other: Urine Appearance Clear Clear Urine Color Bright Yellow Straw Urine Odor Normal Stool Size Moderate Moderate Stool Color Black Black Stool Consistency Loose Soft Liquid # of times incontinent of 1 1 Bowels Head Head exam: Present atraumatic and normal inspection Eye Eye exam: Present normal appearance ENT ENT exam: Present mucous membranes moist, normal exam and normal external ear exam Neck Neck exam: Present normal inspection Additional comments: Left IVJ catheter Respiratory Respiratory exam: Present normal respiratory exam Cardiovascular Cardiovascular exam: Present irregular rhythm GI/Abdominal GI/Abdominal exam: Present normal bowel sounds Additional comments: Peritoneal dialysis access in place Back Exam Back exam: Present normal inspection Neurological Exam Neurological exam: Present alert and oriented X3 Skin Skin exam: Present intact and warm OBJ DATA Labs CBC & Chem 7: 05/16/22 05:17 05/16/22 05:17 Labs: Abnormal Lab Results 05/16/22 05/16/22 05/15/22 05:17 05:17 05:24 WBC 12.0 H RBC 2.43 L Hgb 7.9 L Hct 24.0 L MCV Neut % (Auto) 83.1 H Lymph % (Auto) 10.7 L Lymph # (Auto) 1.28 L Absolute Neutrophils 9.98 H ABG Methemoglobin VBG pO2 VBG HCO3 VBG Total CO2 VBG O2 Saturation VBG Base Excess VBG Lactic Acid Carboxyhemoglobin Total Hemoglobin Sodium 129 L 131 L Potassium 3.1 L 3.0 L Chloride 93 L 92 L Carbon Dioxide 21 L Anion Gap 17.0 H BUN 37 H 29 H Creatinine 6.6 H* 6.5 H* Glucose 265 H 316 H Hemoglobin A1c 6.7 H Calcium 7.8 L 8.0 L Phosphorus 5.4 H 6.3 H* Magnesium 1.3 L 1.3 L C-Reactive Protein Total Protein 5.1 L 4.9 L Albumin 2.7 L 2.5 L Albumin/Globulin Ratio Urine Appearance Urine Ketones Urine Bilirubin Ur Leukocyte Esterase Urine RBC Urine WBC Ur Squamous Epith Cells Urine Bacteria Urine Mucus 05/15/22 05/14/22 05/14/22 05:24 05:08 05:08 WBC 13.4 H RBC 2.36 L 2.98 L Hgb 7.6 L 9.8 L Hct 23.2 L 30.3 L MCV 101.7 H Neut % (Auto) 88.4 H 89.0 H Lymph % (Auto) 7.4 L 6.1 L Lymph # (Auto) 0.79 L 0.82 L Absolute Neutrophils 9.42 H 11.91 H ABG Methemoglobin VBG pO2 VBG HCO3 VBG Total CO2 VBG O2 Saturation VBG Base Excess VBG Lactic Acid Carboxyhemoglobin Total Hemoglobin Sodium 131 L Potassium 3.2 L Chloride 92 L Carbon Dioxide 19 L Anion Gap 20.0 H BUN 34 H Creatinine 7.3 H* Glucose 382 H Hemoglobin A1c Calcium 8.2 L Phosphorus Magnesium C-Reactive Protein 8.90 H Total Protein Albumin Albumin/Globulin Ratio Urine Appearance Urine Ketones Urine Bilirubin Ur Leukocyte Esterase Urine RBC Urine WBC Ur Squamous Epith Cells Urine Bacteria Urine Mucus 05/13/22 05/13/22 05/13/22 Unknown 19:07 18:52 WBC RBC Hgb Hct MCV Neut % (Auto) Lymph % (Auto) Lymph # (Auto) Absolute Neutrophils ABG Methemoglobin 0.1 L VBG pO2 49.1 H VBG HCO3 22.3 L VBG Total CO2 23.6 L VBG O2 Saturation 79.4 H VBG Base Excess -4 L VBG Lactic Acid 2.3 H Carboxyhemoglobin 4.5 H Total Hemoglobin 10.8 L Sodium Potassium 3.1 L Chloride 90 L Carbon Dioxide 18 L Anion Gap 27.0 H BUN 36 H Creatinine 8.3 H* Glucose 209 H Hemoglobin A1c Calcium Phosphorus Magnesium C-Reactive Protein Total Protein Albumin Albumin/Globulin Ratio 0.9 L Urine Appearance Urine Ketones Urine Bilirubin Ur Leukocyte Esterase Urine RBC Urine WBC Ur Squamous Epith Cells Urine Bacteria Urine Mucus 05/13/22 05/13/22 05/13/22 14:51 12:45 11:55 WBC RBC Hgb Hct MCV Neut % (Auto) Lymph % (Auto) Lymph # (Auto) Absolute Neutrophils ABG Methemoglobin VBG pO2 VBG HCO3 VBG Total CO2 VBG O2 Saturation VBG Base Excess VBG Lactic Acid 2.6 H 2.6 H Carboxyhemoglobin Total Hemoglobin Sodium Potassium Chloride Carbon Dioxide Anion Gap BUN Creatinine Glucose Hemoglobin A1c Calcium Phosphorus Magnesium C-Reactive Protein Total Protein Albumin Albumin/Globulin Ratio Urine Appearance Cloudy A Urine Ketones 5 A Urine Bilirubin 4.0 A Ur Leukocyte Esterase 250 A Urine RBC 12 H Urine WBC 111 H Ur Squamous Epith Cells 13 H Urine Bacteria Few A Urine Mucus Few A Meds: Medications Acetaminophen (Acetaminophen 325 Mg Tablet) 650 mg PO Q6HP PRN; Protocol PRN Reason: Per Pain Protocol/Fever > 101 Last Admin: 05/15/22 20:42 Dose: 650 mg Documented by: Aspirin (Aspirin 81 Mg Tab.Chew) 81 mg PO DAILY [facility] Last Admin: 05/15/22 09:20 Dose: 81 mg Documented by: Calcitriol (Calcitriol 0.25 Mcg Capsule) 0.25 mcg PO QDAY [facility] Last Admin: 05/15/22 09:20 Dose: 0.25 mcg Documented by: Clonazepam (Clonazepam 0.5 Mg Tablet) 1 mg PO QDAY PRN PRN Reason: Anxiety Last Admin: 05/15/22 19:50 Dose: 1 mg Documented by: Dextrose (Dextrose 50% 50 Ml Vial) 0 ml IV UD PRN PRN Reason: Per Sliding Scale Diagnostic Test (Pha) (Accu-Chek 1 Each Strip) 1 each FS ACHS [facility] Last Admin: 05/16/22 07:42 Dose: 1 each Documented by: Famotidine (Famotidine 20 Mg Tablet) 20 mg PO DAILYP PRN PRN Reason: Acid Reflux Glucose (Dextrose 31 Gm Oral.Susp) 15 gm PO PRN PRN PRN Reason: Hypoglycemia Heparin Sodium (Porcine) (Heparin 5,000 Unit/Ml Vial) 5,000 unit SQ Q12 [facility] Last Admin: 05/15/22 20:08 Dose: 5,000 unit Documented by: Piperacillin Sod/Tazobactam (Sod 2.25 gm/ Dextrose) 50 mls @ 100 mls/hr IV Q8H [facility]; Protocol Last Infusion: 05/16/22 05:40 Dose: Infused Documented by: Norepinephrine Bitartrate 16 (mg/ Sodium Chloride) 250 mls @ 9.375 mls/hr IV Q24H YO; Protocol Last Admin: 05/16/22 08:18 Dose: 8 mcg/min, 7.5 mls/hr Documented by: Vasopressin 20 unit/ Dextrose 100 mls @ 6 mls/hr IV Q12H YO; Protocol Last Admin: 05/16/22 07:43 Dose: Not Given Documented by: Sodium Chloride (Sodium Chloride 0.9%) 250 mls @ 20 mls/hr IV .[id number] [facility] Last Admin: 05/16/22 08:32 Dose: 20 mls/hr Documented by: Acetaminophen (Ofirmev) 650 mg in 65 mls @ 130 mls/hr IV Q6HP PRN; Protocol PRN Reason: PAIN/FEVER > 101 Last Infusion: 05/15/22 22:45 Dose: Infused Documented by: Lactated Ringer's (Lactated Ringers) 1,000 mls @ 50 mls/hr IV .Q20H YO Insulin Glargine (Insulin Glargine, Human 1 Unit/0.01 Ml) 62 unit SQ BID [facility] Last Admin: 05/15/22 20:19 Dose: 62 units Documented by: Insulin Human Lispro (Insulin Lispro 1 Unit/0.01 Ml Unit) 0 unit SQ ACHS [facility]; Protocol Last Admin: 05/16/22 07:43 Dose: 6 units Documented by: Loperamide HCl (Loperamide 2 Mg Capsule) 2 mg PO Q6H YO Last Admin: 05/16/22 02:52 Dose: 2 mg Documented by: Magnesium Oxide (Magnesium Oxide 400 Mg Tablet) 400 mg PO BID [facility] Last Admin: 05/15/22 20:09 Dose: 400 mg Documented by: Melatonin (Melatonin 3 Mg Tablet) 15 mg PO HSP PRN PRN Reason: Insomnia Last Admin: 05/15/22 22:15 Dose: 15 mg Documented by: Omeprazole (Omeprazole 20 Mg Capsule) 20 mg PO ACB [facility] Last Admin: 05/16/22 07:43 Dose: 20 mg Documented by: Ondansetron HCl (Ondansetron 4 Mg/2 Ml Vial) 4 mg IV Q4HP PRN; Protocol PRN Reason: Nausea And Vomiting Last Admin: 05/13/22 16:53 Dose: 4 mg Documented by: Oxybutynin Chloride (Oxybutynin Chloride 5 Mg Tab.Xl.24h) 10 mg PO HS [facility] Last Admin: 05/15/22 20:09 Dose: 10 mg Documented by: Potassium Chloride (Potassium Chloride 20 Meq Tablet) 20 meq PO BIDCC [facility] Last Admin: 05/16/22 08:20 Dose: 20 meq Documented by: Sodium Chloride (0.9 % Sodium Chloride 10 Ml Syringe) 10 ml IV Q12 [facility] Last Admin: 05/15/22 20:20 Dose: 10 ml Documented by: Sodium Chloride (0.9 % Sodium Chloride 10 Ml Syringe) 10 ml IV UD PRN PRN Reason: See instructions Last Admin: 05/14/22 05:19 Dose: 10 ml Documented by: Vitamin D (Vitamin D3 125 Mcg Tablet) 125 mcg PO QDAY [facility] Last Admin: 05/15/22 09:20 Dose: 125 mcg Documented by: ABG Interpretation ABG results: 05/13/22 19:07 ABG Methemoglobin 0.1 L VBG pH 7.32 VBG pCO2 44.0 VBG pO2 49.1 H VBG HCO3 22.3 L VBG Total CO2 23.6 L VBG O2 Saturation 79.4 H VBG Base Excess -4 L A/P Assessment and plan (1) Septic shock: Status: Acute (2) Diabetes mellitus, type II: Status: Chronic (3) Hypertension, essential: Status: Chronic (4) Hyperlipidemia: Status: Chronic (5) Anemia, normocytic normochromic: Status: Acute (6) Atrial fibrillation with RVR: Status: Acute (7) End-stage renal disease on peritoneal dialysis: Status: Chronic (8) Hypokalemia: Status: Acute (9) Hypomagnesemia: Status: Acute (10) Hyponatremia: Assessment and plan: Assessment and Plans: 1. Septic shock, unclear source of infection: Inpatient ICU Blood and urine cultures no growth to date; PD fluid does not suggest presence of SBP Zosyn Continue to wean off Levophed as tolerated d/c Solu-Medrol cbc w/ auto diff in the morning to trend WBC 2. ESRD on peritoneal dialysis: Communications Senior Associate consulted for PD needs, appreciated 3. Hyponatremia, hypokalemia, hypomagnesemia: Potassium and Magnesium PO replacement Repeat CMP and serum Mg level in the morning to trend levels 4. Permanent atrial fibrillation: Currently rate controlled, no Heparin PPX dose only, hold for therapeutic anticoagulation due to worsening anemia 5. Anemia, normocytic normochromic: Hold for therapeutic anticoagulation due to worsening anemia cbc w/ auto diff in the morning to trend H/H, transfuse if Hemoglobin <7.0 Occult blood screen 6. T2DM: HgA1c d/c Solu-Medrol Insulin Status: Acute (11) GI bleeding: Status: Acute Narrative A/P Narrative: Assessment and Plans: 1. Septic shock, unclear source of infection: Inpatient ICU Blood and urine cultures no growth to date; PD fluid does not suggest presence of SBP Zosyn Continue to wean off Levophed as tolerated cbc w/ auto diff in the morning to trend WBC 2. ESRD on peritoneal dialysis: Communications Senior Associate consulted for PD needs, appreciated 3. Hyponatremia, hypokalemia, hypomagnesemia: Potassium and Magnesium PO replacement Repeat CMP and serum Mg level in the morning to trend levels 4. Permanent atrial fibrillation: Currently rate controlled, no Heparin PPX dose only, hold for therapeutic anticoagulation due to worsening anemia 5. Anemia, normocytic normochromic, 2/2 GI bleeding: Occult blood screen positive cbc w/ auto diff in the morning to trend H/H, transfuse if Hemoglobin <7.0 I spoke with convict guard general surgeon Dr. Rodriguez, who recommended outpatient over inpatient endoscopy due to anesthesia risk. d/c Aspirin and Heparin, do SCDs instead Protonix IV BID 6. T2DM: HgA1c d/c Solu-Medrol Insulin Lantus 62 unit BID SSI AC HS Accu Chek AC HS Hypoglycemia protocol Diabetic diet 7. h/o Essential HTN: Currently septic shock, hold any oral antihypertensives GI ppx: Protonix IV BID DVT ppx: SCDs Code status: Full Prognosis: extremely guarded Disposition: inpatient ICU Critical Care Time: 1hr Time Spent With Patient Time: Total time spent is greater than 50% in coordination of care (as documented) at patient's floor/unit and/or counseling patient: Total time spent with greater than 50% in coordination of care (as documented) at patient's floor/unit and/or counseling patient:: 50 - 70 minutes
[2022-05-16] MEDS: 0.9 % SODIUM CHLORIDE 10 ML SYRINGE IV SCH ×2 (09:37→20:52)
[2022-05-16] MEDS: LACTATED RINGERS 1,000 ML IV SCH (09:38)
[2022-05-16] MEDS: PANTOPRAZOLE 40 MG VIAL IV SCH (16:58)
[2022-05-16] MEDS: OXYBUTYNIN CHLORIDE 5 MG TAB.XL.24H PO SCH (20:55)
[2022-05-17] MEDS: ACETAMINOPHEN 325 MG TABLET PO PRN (01:14)
[2022-05-17] MEDS: clonazePAM 0.5 MG TABLET PO PRN (01:55)
[2022-05-17] MEDS: LOPERAMIDE 2 MG CAPSULE PO SCH ×5 (04:24→21:33)
[2022-05-17] MEDS: LACTATED RINGERS 1,000 ML IV SCH (05:17)
[2022-05-17] MEDS: PIPERACILLIN SODIUM/TAZOBACTAM 2.25 GM in DEXTROSE 5% IN WATER 50 ML IV SCH ×2 (05:50→15:01)
[2022-05-17 06:32] LABS: Basophils # (Auto) 0.03 K/mcL (0.00-0.30); Basophils % (Auto) 0.2 % (0.0-2.0); Eosinophils # (Auto) 0.29 K/mcL (0.00-0.70); Eosinophils % (Auto) 2.2 % (0.0-7.0); Hematocrit 26.7 % (34.1-44.9); Lymphocytes # (Auto) 1.77 K/mcL (1.50-4.80); Lymphocytes % (Auto) 13.6 % (15.5-49.0); Mean Cell Volume 98.5 fL (80.0-100.0); Mean Corpuscular HGB Conc 33.7 g/dL (31.0-36.0); Mean Platelet Volume 9.5 fL (7.4-10.4); Monocytes # (Auto) 0.87 K/mcL (0.10-0.90); Monocytes % (Auto) 6.7 % (1.0-12.0); Neutrophils % (Auto) 77.3 % (38.0-78.0); Platelet Count 214 K/mcL (140-440); RBC 2.71 M/mcL (3.59-5.38); Red Cell Distribution Width 13.7 % (11.5-14.5); WBC 13.1 K/mcL (4.5-11.0)
[2022-05-17 06:50] LABS: Phosphorous 4.5 mg/dL (2.5-4.5)
[2022-05-17] MEDS ORDERED: MAGNESIUM SULFATE 2 GM/50 ML BAG IV ONE (06:53)
[2022-05-17 07:30] LABS: ALT/SGPT 22 U/L (<40); AST/SGOT 22 U/L (<32); Albumin 2.7 gm/dL (3.2-5.2); Albumin/Globulin Ratio 1.2 (1.0-2.3); Alkaline Phosphatase 66 U/L (39-117); Bilirubin,Total 0.3 mg/dL (0.1-1.0); Blood Urea Nitrogen 32 mg/dL (8-23); Calcium 7.7 mg/dL (8.6-10.4); Carbon Dioxide 23 mmol/L (22-30); Chloride 98 mmol/L (96-108); Globulin 2.2 gm/dL (2.2-3.7); Glomerular Filtration Rate 6; Glucose 64 mg/dL (70-105)
[2022-05-17] MEDS: PANTOPRAZOLE 40 MG VIAL IV SCH ×2 (07:35→17:09)
[2022-05-17] MEDS: INSULIN LISPRO 1 UNIT/0.01 ML UNIT SQ SCH ×4 (07:36→21:23)
[2022-05-17] MEDS ORDERED: POTASSIUM CHLORIDE 40 MEQ in DEXTROSE 5% IN WATER 250 ML IV ONE (07:44)
--- NOTE | 2022-05-17 07:47 | Nephrology Progress Note ---
SUBJECTIVE Subjective Patient information: Note initiated : 05/17/22 at 7:46 am Patient: Debra Walker 76 y/o F admitted on 05/13/22 for N/V/D, headache. Chief Complaint: Weakness Principal diagnosis: Septic shock Pertinent ROS: Diarrhea improved Weakness Constitutional Vitals: Vital Signs Temp Pulse Resp BP Pulse Ox 98.2 F 65 24 H 109/45 100 05/17/22 04:07 05/17/22 07:06 05/17/22 07:06 05/17/22 07:01 05/17/22 07:06 Period Temp Pulse Resp BP Sys/Horn Pulse Ox Last 24 Hr 98.2 F-99.2 F 58-72 13-31 73-146/35-99 95-100 Intake and Output 05/16/22 05/17/22 05/17/22 21:59 05:59 13:59 Intake Total 202 1300 50 Output Total 100 Balance 102 1300 50 Weight 213 lb 3.2 oz Intake & Output: Intake & Output 05/16/22 05/17/22 05/17/22 21:59 05:59 13:59 Intake Total 202 1300 50 Output Total 100 Balance 102 1300 50 Weight 213 lb 3.2 oz Intake: IV 82 1300 50 Sodium Chloride 0.9% 250 ml @ 250 20 mls/hr IV .[id number] [facility] Rx#: [id number] Lactated Ringers 1,000 ml @ 50 1000 mls/hr IV .Q20H [facility] Rx#: [id number] Levophed 16 mg In Sodium 32 Chloride 0.9% 234 ml @ 10 MCG/ MIN 9.375 mls/hr IV Q24H [facility] Rx #:[id number] Zosyn 2.25 gm In Dextrose 5% in 50 50 50 Water 50 ml @ 100 mls/hr IV Q8H [facility] Rx#:[id number] Oral 120 Output: Urine Catheter Amount 100 Other: Meal Nourishment/Supplement Percent of Meal Consumed 100% Feeding Ability Assist with Tray Set Up Urine Appearance Cloudy Urine Color Bright Yellow General appearance: cooperative and no acute distress Head Head exam: Present normal inspection Eye Eye exam: Present normal appearance ENT ENT exam: Present mucous membranes moist Respiratory Respiratory exam: Absent respiratory distress Cardiovascular Cardiovascular exam: Present normal rate and rhythm GI/Abdominal GI/Abdominal exam: Present soft; Absent tenderness Extremities Exam Extremities exam: Absent joint swelling or pedal edema Neurological Exam Neurological exam: Present alert and oriented X3 Psychiatric Psychiatric exam: Present normal affect and normal mood Skin Skin exam: Present warm; Absent rash A/P Assessment and plan (1) End-stage renal disease on peritoneal dialysis: Assessment and plan: Debra Walker is a 76-year-old female with end stage renal disease on peritoneal dialysis, 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 She presented to [facility] ED for nausea, vomiting, and diarrhea. She also had abdominal pain. Her symptoms started about 1 month ago. Vitals were significant for hypotension (BP 85/36). Labs were significant for leukocytosis. No obvious source was identified. She received 1L IV fluids. Cefepime 1g IV ordered. Nephrology consultation was requested for end stage renal disease. End stage renal disease on peritoneal dialysis. Chronic anemia due to ESRD. Hypotension with severe diarrhea, improved. She is back on IV pressors. Hyponatremia, hypokalemia, metabolic acidosis associated with ESRD and diarrhea. Peritoneal dialysis related peritonitis ruled out. PD fluid is clear. Workup: CT Abdomen and Pelvis on 05/13/22: Peritoneal dialysis catheter in the pelvis. Prominent free intraperitoneal fluid and intraperitoneal gas bubbles. No intra- abdominal abscess identified. Severe atherosclerotic calcification including coronary artery calcification. Visceral arteries are also calcified. Bilateral renal atrophy. Previous cholecystectomy and probable hysterectomy. Labs on 05/13/22: Urinalysis sushma, cloudy, pH 5.0, SG 1.024, protein negative, blood 0.03, leukocyte esterase 250. Labs on 05/13/22: WBC 16.7 (neutrophils 83.3%), venous lactate 2.6, lipase 52, Previous Workup: PD Fluid on 05/11/22: Colorless, clear, Nucleated 72 (Neutrophils 34%, Lymph 16%, [place] 27%, [place] 23%), RBC <50,000. Recommendations/Plan: LR at 50 ml/hr. Potassium Chloride 40 mEq IV x 1. Magnesium Sulfate 2 g IV x 1. Continue CCPD nightly, 1.5%; fill volume 2,400 ml, 4 exchanges, 10 hours, last fill 2,400 ml. Status: Chronic Time Spent With Patient Time: Total time spent is greater than 50% in coordination of care (as documented) at patient's floor/unit and/or counseling patient:
[2022-05-17] MEDS: VASOPRESSIN 20 UNIT in DEXTROSE 5% IN WATER 99 ML IV SCH ×4 (07:53→17:19)
[2022-05-17] MEDS: NOREPINEPHRINE BITARTRATE 16 MG in 0.9 % SODIUM CHLORIDE 234 ML IV SCH ×2 (08:00→09:03)
[2022-05-17] MEDS: ACETAMINOPHEN 650 MG/65 ML BAG IV PRN (08:01)
[2022-05-17] MEDS ORDERED: NITROGLYCERIN 0.4 MG TAB.SUBL SL PRN (08:54)
[2022-05-17] MEDS ORDERED: POTASSIUM CHLORIDE 20 MEQ in DEXTROSE 5% IN WATER 100 ML IV ONE (08:56)
[2022-05-17] MEDS: 0.9 % SODIUM CHLORIDE 250 ML IV SCH ×3 (09:03→21:56)
--- NOTE | 2022-05-17 09:07 | Internal Med Progress Note ---
SUBJECTIVE Subjective Patient information: Note initiated : 05/17/22 at 8:56 am Service Date, if different from initiated Date: [] Patient: Debra Walker 76 y/o F admitted on 05/13/22 for N/V/D, headache. Chief Complaint: [] Principal diagnosis: Septic shock Interval history: 05/15: Afebrile overnight. Fasting glucose 377. Blood and urine cultures no growth to date. Vasopressin switched off; Levophed drip still on 2mcg/min. Patient is c/o weakness. Denies abdominal pain. Denies GI symptoms such as nausea vomiting diarrhea or constipation. Denies fever chills or sweating. Continue Zosyn. Continue to wean Levophed drip as tolerated. 05/16: Afebrile overnight. Fasting glucose 301. Blood and urine cultures no growth to date. Vasopressin switched off; Levophed drip still on 6mcg/min. Stool guaiac positive. Hemoglobin 7.6-->7.6. I spoke with formulation scientist general surgeon Dr. Rodriguez, who recommended outpatient over inpatient endoscopy due to anesthesia risk. Patient is c/o weakness. She is c/o nausea. Denies abdominal pain. Denies fever chills or sweating. Continue Zosyn. Continue to wean Levophed drip as tolerated. Protonix IV BID, d/c Aspirin and Heparin. SCDs instead. Outpatient endoscopy. Continue nightly peritoneal dialysis. 05/17: Afebrile overnight. On up to 10mcg/min Levophed drip. Cultures no growth to date. H/H stable. Potassium level 2.9, Cr level 6.3. Fasting blood culture 64 this morning. Patient is complaining of 6/10 "jagging" pain, constant, of her left jaw, left neck, left chest, and left shoulder. She is also complaining of shortness of breath. She had insomnia due to her pain. Denies nausea or vomiting. Denies fever, chills, or sweating. Continue Levophed and/or Vasopressin drips to maintain MAP>=65mmHg. Continue Zosyn as empiric antibiotics. 12 lead ECG and serial troponin to rule out MN. Morphine IV and NitroSTAT SL PRN chest pain. Continue Protonix IV BID for GI bleeding. Outpatient endoscopy. Replace potassium 40mEq IV, repeat serum potassium level at noon. Continue peritoneal dialysis at night. Constitutional Vitals: Vital Signs Temp Pulse Resp BP Pulse Ox 36.5 C 64 20 89/44 99 05/17/22 08:01 05/17/22 08:09 05/17/22 08:09 05/17/22 08:01 05/17/22 08:09 Period Temp Pulse Resp BP Sys/Horn Pulse Ox Last 24 Hr 36.5 C-37.3 C 58-72 13-31 73-146/35-99 95-100 Intake and Output 05/16/22 05/17/22 05/17/22 21:59 05:59 13:59 Intake Total 202 1300 139 Output Total 100 Balance 102 1300 139 Weight 96.706 kg Intake & Output: Intake & Output 05/16/22 05/17/22 05/17/22 21:59 05:59 13:59 Intake Total 202 1300 139 Output Total 100 Balance 102 1300 139 Weight 96.706 kg Intake: IV 82 1300 139 Sodium Chloride 0.9% 250 ml @ 250 20 mls/hr IV .[id number] YO Rx#: [id number] Lactated Ringers 1,000 ml @ 50 1000 mls/hr IV .Q20H YO Rx#: [id number] Levophed 16 mg In Sodium 32 89 Chloride 0.9% 234 ml @ 10 MCG/ MIN 9.375 mls/hr IV Q24H YO Rx #:[id number] Zosyn 2.25 gm In Dextrose 5% in 50 50 50 Water 50 ml @ 100 mls/hr IV Q8H YO Rx#:[id number] Oral 120 Output: Urine Catheter Amount 100 Other: Meal Nourishment/Supplement Percent of Meal Consumed 100% Feeding Ability Assist with Tray Set Up Urine Appearance Cloudy Urine Color Bright Yellow Head Head exam: Present atraumatic and normal inspection Eye Eye exam: Present normal appearance ENT ENT exam: Present mucous membranes moist, normal exam and normal external ear exam Additional comments: Left IJ central line in place Neck Neck exam: Present normal inspection Respiratory Respiratory exam: Present normal respiratory exam Cardiovascular Cardiovascular exam: Present irregular rhythm GI/Abdominal GI/Abdominal exam: Present normal bowel sounds Back Exam Back exam: Present normal inspection Neurological Exam Neurological exam: Present alert and oriented X3 Skin Skin exam: Present intact and warm OBJ DATA Labs CBC & Chem 7: 05/17/22 05:31 05/17/22 05:31 Labs: Abnormal Lab Results 05/17/22 05/17/22 05/16/22 05:31 05:31 05:17 WBC 13.1 H RBC 2.71 L Hgb 9.0 L Hct 26.7 L Neut % (Auto) Lymph % (Auto) 13.6 L Lymph # (Auto) Absolute Neutrophils 10.10 H Sodium 129 L Potassium 2.9 L* 3.1 L Chloride 93 L Carbon Dioxide 21 L Anion Gap BUN 32 H 37 H Creatinine 6.3 H* 6.6 H* Glucose 64 L 265 H Hemoglobin A1c Calcium 7.7 L 7.8 L Phosphorus 5.4 H Magnesium 1.2 L 1.3 L Total Protein 4.9 L 5.1 L Albumin 2.7 L 2.7 L 05/16/22 05/15/22 05/15/22 05:17 05:24 05:24 WBC 12.0 H RBC 2.43 L 2.36 L Hgb 7.9 L 7.6 L Hct 24.0 L 23.2 L Neut % (Auto) 83.1 H 88.4 H Lymph % (Auto) 10.7 L 7.4 L Lymph # (Auto) 1.28 L 0.79 L Absolute Neutrophils 9.98 H 9.42 H Sodium 131 L Potassium 3.0 L Chloride 92 L Carbon Dioxide Anion Gap 17.0 H BUN 29 H Creatinine 6.5 H* Glucose 316 H Hemoglobin A1c 6.7 H Calcium 8.0 L Phosphorus 6.3 H* Magnesium 1.3 L Total Protein 4.9 L Albumin 2.5 L Meds: Medications Acetaminophen (Acetaminophen 325 Mg Tablet) 650 mg PO Q6HP PRN; Protocol PRN Reason: Per Pain Protocol/Fever > 101 Last Admin: 05/17/22 01:14 Dose: 650 mg Documented by: Calcitriol (Calcitriol 0.25 Mcg Capsule) 0.25 mcg PO QDAY YO Last Admin: 05/16/22 09:33 Dose: 0.25 mcg Documented by: Clonazepam (Clonazepam 0.5 Mg Tablet) 1 mg PO QDAY PRN PRN Reason: Anxiety Last Admin: 05/17/22 01:55 Dose: 1 mg Documented by: Dextrose (Dextrose 50% 50 Ml Vial) 0 ml IV UD PRN PRN Reason: Per Sliding Scale Diagnostic Test (Pha) (Accu-Chek 1 Each Strip) 1 each FS ACHS YO Last Admin: 05/17/22 07:35 Dose: 1 each Documented by: Famotidine (Famotidine 20 Mg Tablet) 20 mg PO DAILYP PRN PRN Reason: Acid Reflux Last Admin: 05/17/22 01:56 Dose: 20 mg Documented by: Glucose (Dextrose 31 Gm Oral.Susp) 15 gm PO PRN PRN PRN Reason: Hypoglycemia Piperacillin Sod/Tazobactam (Sod 2.25 gm/ Dextrose) 50 mls @ 100 mls/hr IV Q8H YO; Protocol Last Infusion: 05/17/22 06:37 Dose: Infused Documented by: Norepinephrine Bitartrate 16 (mg/ Sodium Chloride) 250 mls @ 9.375 mls/hr IV Q24H YO; Protocol Last Titration: 05/17/22 08:24 Dose: 10 mcg/min, 9.375 mls/hr Documented by: Vasopressin 20 unit/ Dextrose 100 mls @ 6 mls/hr IV Q12H YO; Protocol Last Admin: 05/17/22 07:53 Dose: Not Given Documented by: Sodium Chloride (Sodium Chloride 0.9%) 250 mls @ 20 mls/hr IV .[id number] YO Last Admin: 05/16/22 22:29 Dose: 20 mls/hr Documented by: Acetaminophen (Ofirmev) 650 mg in 65 mls @ 130 mls/hr IV Q6HP PRN; Protocol PRN Reason: PAIN/FEVER > 101 Last Admin: 05/17/22 08:01 Dose: 130 mls/hr Documented by: Lactated Ringer's (Lactated Ringers) 1,000 mls @ 50 mls/hr IV .Q20H YO Last Admin: 05/17/22 05:17 Dose: 50 mls/hr Documented by: Potassium Chloride 40 meq/ (Dextrose) 270 mls @ 67.5 mls/hr IV ONCE ONE Stop: 05/17/22 11:43 Potassium Chloride 20 meq/ (Dextrose) 110 mls @ 55 mls/hr IV ONCE ONE Stop: 05/17/22 10:55 Insulin Glargine (Insulin Glargine, Human 1 Unit/0.01 Ml) 62 unit SQ BID YO Last Admin: 05/16/22 20:51 Dose: 62 units Documented by: Insulin Human Lispro (Insulin Lispro 1 Unit/0.01 Ml Unit) 0 unit SQ ACHS [facility]; Protocol Last Admin: 05/17/22 07:36 Dose: Not Given Documented by: Loperamide HCl (Loperamide 2 Mg Capsule) 2 mg PO Q6H [facility] Last Admin: 05/17/22 04:24 Dose: Not Given Documented by: Melatonin (Melatonin 3 Mg Tablet) 15 mg PO HSP PRN PRN Reason: Insomnia Last Admin: 05/15/22 22:15 Dose: 15 mg Documented by: Morphine Sulfate (Morphine 2 Mg/Ml Vial) 2 mg IV Q4HP PRN; Protocol PRN Reason: Per Pain Protocol Nitroglycerin (Nitroglycerin 0.4 Mg Tab.Subl) 0.4 mg SL Q5M PRN PRN Reason: Chest Pain Ondansetron HCl (Ondansetron 4 Mg/2 Ml Vial) 4 mg IV Q4HP PRN; Protocol PRN Reason: Nausea And Vomiting Last Admin: 05/13/22 16:53 Dose: 4 mg Documented by: Oxybutynin Chloride (Oxybutynin Chloride 5 Mg Tab.Xl.24h) 10 mg PO HS [facility] Last Admin: 05/16/22 20:55 Dose: 10 mg Documented by: Pantoprazole Sodium (Pantoprazole 40 Mg Vial) 40 mg IV BIDAC [facility] Last Admin: 05/17/22 07:35 Dose: 40 mg Documented by: Potassium Chloride (Potassium Chloride 20 Meq Tablet) 20 meq PO BIDCC [facility] Last Admin: 05/16/22 16:57 Dose: 20 meq Documented by: Sodium Chloride (0.9 % Sodium Chloride 10 Ml Syringe) 10 ml IV Q12 [facility] Last Admin: 05/16/22 20:52 Dose: 10 ml Documented by: Sodium Chloride (0.9 % Sodium Chloride 10 Ml Syringe) 10 ml IV UD PRN PRN Reason: See instructions Last Admin: 05/14/22 05:19 Dose: 10 ml Documented by: Vitamin D (Vitamin D3 125 Mcg Tablet) 125 mcg PO QDAY [facility] Last Admin: 05/16/22 09:33 Dose: 125 mcg Documented by: ABG Interpretation ABG results: 05/13/22 19:07 ABG Methemoglobin 0.1 L VBG pH 7.32 VBG pCO2 44.0 VBG pO2 49.1 H VBG HCO3 22.3 L VBG Total CO2 23.6 L VBG O2 Saturation 79.4 H VBG Base Excess -4 L A/P Assessment and plan (1) Septic shock: Status: Acute (2) Diabetes mellitus, type II: Status: Chronic (3) Hypertension, essential: Status: Chronic (4) Hyperlipidemia: Status: Chronic (5) Anemia, normocytic normochromic: Status: Acute (6) Atrial fibrillation with RVR: Status: Acute (7) End-stage renal disease on peritoneal dialysis: Status: Chronic (8) Hypokalemia: Status: Acute (9) Hypomagnesemia: Status: Acute (10) Hyponatremia: Assessment and plan: Assessment and Plans: 1. Septic shock, unclear source of infection: Inpatient ICU Blood and urine cultures no growth to date; PD fluid does not suggest presence of SBP Zosyn Continue Levophed and/or Vasopressin drips to maintain MAP>=65mmHg d/c Solu-Medrol cbc w/ auto diff in the morning to trend WBC 2. ESRD on peritoneal dialysis: [employer] consulted for PD needs, appreciated 3. Hyponatremia, hypokalemia, hypomagnesemia: Potassium and Magnesium PO replacement Repeat CMP and serum Mg level in the morning to trend levels 4. Permanent atrial fibrillation: Currently rate controlled, no Heparin PPX dose only, hold for therapeutic anticoagulation due to worsening anemia 5. Anemia, normocytic normochromic: Hold for therapeutic anticoagulation due to worsening anemia cbc w/ auto diff in the morning to trend H/H, transfuse if Hemoglobin <7.0 Occult blood screen 6. T2DM: HgA1c d/c Solu-Medrol Insulin Lantus 62 unit BID SSI AC HS Accu Chek AC HS Hypoglycemia protocol Diabetic diet 7. h/o Essential HTN: Currently septic shock, hold any oral antihypertensives GI ppx: oral PPI DVT ppx: Heparin Code status: Full Prognosis: guarded Disposition: inpatient ICU Critical Care Time: 1 hr Status: Acute (11) GI bleeding: Status: Acute (12) Chest pain: Status: Acute Narrative A/P Narrative: Assessment and Plans: 1. Septic shock, unclear source of infection: Inpatient ICU Blood and urine cultures no growth to date; PD fluid does not suggest presence of SBP Zosyn Continue to wean off Levophed as tolerated cbc w/ auto diff in the morning to trend WBC 2. ESRD on peritoneal dialysis: [employer] consulted for PD needs, appreciated 3. Hyponatremia, hypokalemia, hypomagnesemia: Potassium and Magnesium IV replacement Repeat CMP and serum Mg level in the morning to trend levels 4. Permanent atrial fibrillation: Currently rate controlled, no Heparin PPX dose only, hold for therapeutic anticoagulation due to worsening anemia 5. Anemia, normocytic normochromic, 2/2 GI bleeding: Occult blood screen positive cbc w/ auto diff in the morning to trend H/H, transfuse if Hemoglobin <7.0 I spoke with formulation scientist general surgeon Dr. Rodriguez, who recommended outpatient over inpatient endoscopy due to anesthesia risk. d/c Aspirin and Heparin, do SCDs instead Protonix IV BID 6. T2DM: HgA1c 6.7 d/c Solu-Medrol Insulin Lantus , decreased from 62 to 50 unit BID to avoid hypoglycemic eppi sodes SSI AC HS Accu Chek AC HS Hypoglycemia protocol Diabetic diet 7. h/o Essential HTN: Currently septic shock, hold any oral antihypertensives 8. Chest pain: 12-lead ECG Serial Troponin Morphine IV PRN severe pain NitroSTAT SL PRN chest pain GI ppx: Protonix IV BID DVT ppx: SCDs Code status: Full Prognosis: extremely guarded Disposition: inpatient ICU Critical Care Time: 1hr Time Spent With Patient Time: Total time spent is greater than 50% in coordination of care (as documented) at patient's floor/unit and/or counseling patient: Total time spent with greater than 50% in coordination of care (as documented) at patient's floor/unit and/or counseling patient:: 50 - 70 minutes
[2022-05-17] MEDS: morphine 2 MG/ML VIAL IV PRN ×3 (09:50→21:33)
[2022-05-17] MEDS: CALCITRIOL 0.25 MCG CAPSULE PO SCH (10:40)
[2022-05-17] MEDS: POTASSIUM CHLORIDE 20 MEQ TABLET PO SCH ×2 (10:40→21:32)
[2022-05-17] MEDS: VITAMIN D3 125 MCG TABLET PO SCH (10:40)
[2022-05-17] MEDS: 0.9 % SODIUM CHLORIDE 10 ML SYRINGE IV SCH ×2 (11:52→21:56)
[2022-05-17] MEDS: ONDANSETRON 4 MG/2 ML VIAL IV PRN (14:23)
[2022-05-17] MEDS ORDERED: PROMETHAZINE 25 MG/ML VIAL IV PRN (15:27)
[2022-05-17] MEDS ORDERED: DEXTROSE 50% 50 ML SYRINGE IV PRN (17:00)
[2022-05-17] MEDS: INSULIN GLARGINE, HUMAN 1 UNIT/0.01 ML SQ SCH ×2 (19:09→21:26)
[2022-05-17] MEDS: OXYBUTYNIN CHLORIDE 5 MG TAB.XL.24H PO SCH (21:31)
[2022-05-18] MEDS: VASOPRESSIN 20 UNIT in DEXTROSE 5% IN WATER 99 ML IV SCH ×4 (00:03→09:26)
[2022-05-18] MEDS: PIPERACILLIN SODIUM/TAZOBACTAM 2.25 GM in DEXTROSE 5% IN WATER 50 ML IV SCH ×2 (00:18→05:56)
[2022-05-18] MEDS: 0.9 % SODIUM CHLORIDE 250 ML IV SCH ×2 (00:24→10:54)
[2022-05-18] MEDS: LACTATED RINGERS 1,000 ML IV SCH (01:45)
[2022-05-18] MEDS: LOPERAMIDE 2 MG CAPSULE PO SCH ×2 (04:07→10:54)
[2022-05-18 07:35] LABS: Phosphorous 5.3 mg/dL (2.5-4.5)
--- NOTE | 2022-05-18 07:40 | Internal Med Progress Note ---
SUBJECTIVE Subjective Patient information: Note initiated : 05/18/22 at 7:33 am Service Date, if different from initiated Date: [] Patient: Debra Walker 76 y/o F admitted on 05/13/22 for N/V/D, headache. Chief Complaint: [] Principal diagnosis: Septic shock Interval history: 05/15: Afebrile overnight. Fasting glucose 377. Blood and urine cultures no growth to date. Vasopressin switched off; Levophed drip still on 2mcg/min. Patient is c/o weakness. Denies abdominal pain. Denies GI symptoms such as nausea vomiting diarrhea or constipation. Denies fever chills or sweating. Continue Zosyn. Continue to wean Levophed drip as tolerated. 05/16: Afebrile overnight. Fasting glucose 301. Blood and urine cultures no growth to date. Vasopressin switched off; Levophed drip still on 6mcg/min. Stool guaiac positive. Hemoglobin 7.6-->7.6. I spoke with building contractor general surgeon Dr. Rodriguez, who recommended outpatient over inpatient endoscopy due to anesthesia risk. Patient is c/o weakness. She is c/o nausea. Denies abdominal pain. Denies fever chills or sweating. Continue Zosyn. Continue to wean Levophed drip as tolerated. Protonix IV BID, d/c Aspirin and Heparin. SCDs instead. Outpatient endoscopy. Continue nightly peritoneal dialysis. 05/17: Afebrile overnight. On up to 10mcg/min Levophed drip. Cultures no growth to date. H/H stable. Potassium level 2.9, Cr level 6.3. Fasting blood culture 64 this morning. Patient is complaining of 6/10 "jagging" pain, constant, of her left jaw, left neck, left chest, and left shoulder. She is also complaining of shortness of breath. She had insomnia due to her pain. Denies nausea or vomiting. Denies fever, chills, or sweating. Continue Levophed and/or Vasopressin drips to maintain MAP>=65mmHg. Continue Zosyn as empiric antibiotics. 12 lead ECG and serial troponin to rule out PA. Morphine IV and NitroSTAT SL PRN chest pain. Continue Protonix IV BID for GI bleeding. Outpatient endoscopy. Replace potassium 40mEq IV, repeat serum potassium level at noon. Continue peritoneal dialysis at night. 05/18: Last night I spoke to ICU attending from [facility], he he thought it would be an appropriate transfer but he prefer patients to come during the day instead of at night so they advised us to call again this morning for bed availability in order to transfer patients for peritoneal dialysis and the rest of the critical care. Afebrile overnight. Morning labs pending. Troponin 0.25-->0.27-->0.26 Patient is sleeping this morning no other major overnight events. Continue Levophed and/or Vasopressin drips to maintain MAP>=65mmHg. Continue Zosyn as empiric antibiotics. Continue Protonix IV BID for GI bleeding. Outpatient endoscopy. Pending transfer to [facility]. Constitutional Vitals: Vital Signs Temp Pulse Resp BP Pulse Ox 36.3 C 103 H 23 H 107/58 98 05/17/22 16:14 05/18/22 05:31 05/18/22 05:31 05/18/22 05:31 05/18/22 05:31 Period Temp Pulse Resp BP Sys/Horn Pulse Ox Last 24 Hr 36.3 C-36.6 C 37-121 6-33 54-150/25-132 93-100 Intake and Output 05/17/22 05/18/22 05/18/22 21:59 05:59 13:59 Intake Total 339 1548 Output Total 300 Balance 39 1548 Weight 96.388 kg Intake & Output: Intake & Output 05/17/22 05/18/22 05/18/22 21:59 05:59 13:59 Intake Total 339 1548 Output Total 300 Balance 39 1548 Weight 96.388 kg Intake: IV 339 1428 Sodium Chloride 0.9% 250 ml @ 250 20 mls/hr IV .[id number] YO Rx#: [id number] Lactated Ringers 1,000 ml @ 50 1000 mls/hr IV .Q20H YO Rx#: [id number] Levophed 16 mg In Sodium 19 28 Chloride 0.9% 234 ml @ 10 MCG/ MIN 9.375 mls/hr IV Q24H YO Rx #:[id number] Zosyn 2.25 gm In Dextrose 5% in 50 50 Water 50 ml @ 100 mls/hr IV Q8H YO Rx#:[id number] Potassium Chloride 40 Meq In 270 Dextrose 5% in Water 250 ml @ 67.5 mls/hr IV ONCE ONE Rx#: [id number] Vasostrict 20 Unit In Dextrose 100 5% in Water 99 ml @ 0.04 UNIT/ MIN 12 mls/hr IV Q8 [facility] Rx#: [id number] Oral 120 Output: Emesis 300 Other: Meal Lunch Percent of Meal Consumed 50% Feeding Ability Independent Stool Size Moderate Moderate Stool Color Black Brown Stool Consistency Liquid Liquid Loose Loose # Bowel Movements 1 # Emeses 3 Head Head exam: Present atraumatic and normal inspection Eye Eye exam: Present normal appearance ENT ENT exam: Present mucous membranes moist, normal exam and normal external ear exam Neck Neck exam: Present normal inspection Respiratory Respiratory exam: Present normal respiratory exam Cardiovascular Cardiovascular exam: Present irregular rhythm GI/Abdominal GI/Abdominal exam: Present normal bowel sounds Back Exam Back exam: Present normal inspection Neurological Exam Additional comments: Sleeping Skin Skin exam: Present intact and warm OBJ DATA Labs CBC & Chem 7: 05/17/22 05:31 05/17/22 14:37 Labs: Abnormal Lab Results 05/17/22 05/17/22 05/17/22 22:41 22:41 16:45 WBC RBC Hgb Hct Neut % (Auto) Lymph % (Auto) Lymph # (Auto) Absolute Neutrophils Sodium Potassium Chloride Carbon Dioxide Anion Gap BUN Creatinine Glucose Hemoglobin A1c Calcium Phosphorus Magnesium Troponin T 0.26 H* 0.27 H* Total Protein Albumin POC Troponin I 1.40 H 05/17/22 05/17/22 05/17/22 10:33 05:31 05:31 WBC 13.1 H RBC 2.71 L Hgb 9.0 L Hct 26.7 L Neut % (Auto) Lymph % (Auto) 13.6 L Lymph # (Auto) Absolute Neutrophils 10.10 H Sodium Potassium 2.9 L* Chloride Carbon Dioxide Anion Gap BUN 32 H Creatinine 6.3 H* Glucose 64 L Hemoglobin A1c Calcium 7.7 L Phosphorus Magnesium 1.2 L Troponin T 0.25 H* Total Protein 4.9 L Albumin 2.7 L POC Troponin I 05/16/22 05/16/22 05/15/22 05:17 05:17 05:24 WBC 12.0 H RBC 2.43 L Hgb 7.9 L Hct 24.0 L Neut % (Auto) 83.1 H Lymph % (Auto) 10.7 L Lymph # (Auto) 1.28 L Absolute Neutrophils 9.98 H Sodium 129 L 131 L Potassium 3.1 L 3.0 L Chloride 93 L 92 L Carbon Dioxide 21 L Anion Gap 17.0 H BUN 37 H 29 H Creatinine 6.6 H* 6.5 H* Glucose 265 H 316 H Hemoglobin A1c 6.7 H Calcium 7.8 L 8.0 L Phosphorus 5.4 H 6.3 H* Magnesium 1.3 L 1.3 L Troponin T Total Protein 5.1 L 4.9 L Albumin 2.7 L 2.5 L POC Troponin I 05/15/22 05:24 WBC RBC 2.36 L Hgb 7.6 L Hct 23.2 L Neut % (Auto) 88.4 H Lymph % (Auto) 7.4 L Lymph # (Auto) 0.79 L Absolute Neutrophils 9.42 H Sodium Potassium Chloride Carbon Dioxide Anion Gap BUN Creatinine Glucose Hemoglobin A1c Calcium Phosphorus Magnesium Troponin T Total Protein Albumin POC Troponin I Meds: Medications Acetaminophen (Acetaminophen 325 Mg Tablet) 650 mg PO Q6HP PRN; Protocol PRN Reason: Per Pain Protocol/Fever > 101 Last Admin: 05/17/22 01:14 Dose: 650 mg Documented by: Calcitriol (Calcitriol 0.25 Mcg Capsule) 0.25 mcg PO QDAY [facility] Last Admin: 05/17/22 10:40 Dose: 0.25 mcg Documented by: Clonazepam (Clonazepam 0.5 Mg Tablet) 1 mg PO QDAY PRN PRN Reason: Anxiety Last Admin: 05/17/22 01:55 Dose: 1 mg Documented by: Dextrose (Dextrose 50% 50 Ml Syringe) 0 ml IV UD PRN PRN Reason: Per Sliding Scale Last Admin: 05/17/22 17:08 Dose: 25 ml Documented by: Diagnostic Test (Pha) (Accu-Chek 1 Each Strip) 1 each FS ACHS YO Last Admin: 05/17/22 21:22 Dose: 1 each Documented by: Famotidine (Famotidine 20 Mg Tablet) 20 mg PO DAILYP PRN PRN Reason: Acid Reflux Last Admin: 05/17/22 01:56 Dose: 20 mg Documented by: Glucose (Dextrose 31 Gm Oral.Susp) 15 gm PO PRN PRN PRN Reason: Hypoglycemia Piperacillin Sod/Tazobactam (Sod 2.25 gm/ Dextrose) 50 mls @ 100 mls/hr IV Q8H [facility]; Protocol Last Admin: 05/18/22 05:56 Dose: 100 mls/hr Documented by: Norepinephrine Bitartrate 16 (mg/ Sodium Chloride) 250 mls @ 9.375 mls/hr IV Q24H [facility]; Protocol Last Titration: 05/18/22 01:02 Dose: 5 mcg/min, 4.688 mls/hr Documented by: Sodium Chloride (Sodium Chloride 0.9%) 250 mls @ 20 mls/hr IV .[id number] [facility] Last Admin: 05/18/22 00:24 Dose: 20 mls/hr Documented by: Acetaminophen (Ofirmev) 650 mg in 65 mls @ 130 mls/hr IV Q6HP PRN; Protocol PRN Reason: PAIN/FEVER > 101 Last Infusion: 05/17/22 10:41 Dose: Infused Documented by: Lactated Ringer's (Lactated Ringers) 1,000 mls @ 50 mls/hr IV .Q20H [facility] Last Admin: 05/18/22 01:45 Dose: 50 mls/hr Documented by: Vasopressin 20 unit/ Dextrose 100 mls @ 12 mls/hr IV Q8 [facility]; Protocol Last Admin: 05/18/22 05:31 Dose: Not Given Documented by: Insulin Glargine (Insulin Glargine, Human 1 Unit/0.01 Ml) 50 unit SQ BID [facility] Last Admin: 05/17/22 21:26 Dose: Not Given Documented by: Insulin Human Lispro (Insulin Lispro 1 Unit/0.01 Ml Unit) 0 unit SQ ACHS [facility]; Protocol Last Admin: 05/17/22 21:23 Dose: Not Given Documented by: Loperamide HCl (Loperamide 2 Mg Capsule) 2 mg PO Q6H [facility] Last Admin: 05/18/22 04:07 Dose: Not Given Documented by: Melatonin (Melatonin 3 Mg Tablet) 15 mg PO HSP PRN PRN Reason: Insomnia Last Admin: 05/15/22 22:15 Dose: 15 mg Documented by: Morphine Sulfate (Morphine 2 Mg/Ml Vial) 2 mg IV Q4HP PRN; Protocol PRN Reason: Per Pain Protocol Last Admin: 05/17/22 21:33 Dose: 2 mg Documented by: Nitroglycerin (Nitroglycerin 0.4 Mg Tab.Subl) 0.4 mg SL Q5M PRN PRN Reason: Chest Pain Ondansetron HCl (Ondansetron 4 Mg/2 Ml Vial) 4 mg IV Q4HP PRN; Protocol PRN Reason: Nausea And Vomiting Last Admin: 05/17/22 14:23 Dose: 4 mg Documented by: Oxybutynin Chloride (Oxybutynin Chloride 5 Mg Tab.Xl.24h) 10 mg PO HS [facility] Last Admin: 05/17/22 21:31 Dose: 10 mg Documented by: Pantoprazole Sodium (Pantoprazole 40 Mg Vial) 40 mg IV BIDAC [facility] Last Admin: 05/17/22 17:09 Dose: 40 mg Documented by: Potassium Chloride (Potassium Chloride 20 Meq Tablet) 20 meq PO BIDCC [facility] Last Admin: 05/17/22 21:32 Dose: 20 meq Documented by: Promethazine HCl (Promethazine 25 Mg/Ml Vial) 25 mg IV Q4HP PRN PRN Reason: Nausea And Vomiting Last Admin: 05/17/22 16:15 Dose: 25 mg Documented by: Sodium Chloride (0.9 % Sodium Chloride 10 Ml Syringe) 10 ml IV Q12 [facility] Last Admin: 05/17/22 21:56 Dose: Not Given Documented by: Sodium Chloride (0.9 % Sodium Chloride 10 Ml Syringe) 10 ml IV UD PRN PRN Reason: See instructions Last Admin: 05/14/22 05:19 Dose: 10 ml Documented by: Vitamin D (Vitamin D3 125 Mcg Tablet) 125 mcg PO QDAY [facility] Last Admin: 05/17/22 10:40 Dose: 125 mcg Documented by: ABG Interpretation ABG results: 05/13/22 19:07 ABG Methemoglobin 0.1 L VBG pH 7.32 VBG pCO2 44.0 VBG pO2 49.1 H VBG HCO3 22.3 L VBG Total CO2 23.6 L VBG O2 Saturation 79.4 H VBG Base Excess -4 L A/P Assessment and plan (1) Septic shock: Status: Acute (2) Diabetes mellitus, type II: Status: Chronic (3) Hypertension, essential: Status: Chronic (4) Hyperlipidemia: Status: Chronic (5) Anemia, normocytic normochromic: Status: Acute (6) Atrial fibrillation with RVR: Status: Acute (7) End-stage renal disease on peritoneal dialysis: Status: Chronic (8) Hypokalemia: Status: Acute (9) Hypomagnesemia: Status: Acute (10) Hyponatremia: Assessment and plan: Assessment and Plans: 1. Septic shock, unclear source of infection: Inpatient ICU Blood and urine cultures no growth to date; PD fluid does not suggest presence of SBP, yet PD fluid culture eventually grew coagulase-negative staph Continue Zosyn as empiric antibiotics Continue Levophed and/or Vasopressin drips to maintain MAP>=65mmHg d/c Solu-Medrol cbc w/ auto diff in the morning to trend WBC 2. ESRD on peritoneal dialysis: Parts Counter Clerk consulted for PD needs, appreciated 3. Hyponatremia, hypokalemia, hypomagnesemia: Potassium and Magnesium PO replacement Repeat CMP and serum Mg level in the morning to trend levels 4. Permanent atrial fibrillation: Currently rate controlled, no Heparin PPX dose only, hold for therapeutic anticoagulation due to worsening anemia 5. Anemia, normocytic normochromic: Hold for therapeutic anticoagulation due to worsening anemia cbc w/ auto diff in the morning to trend H/H, transfuse if Hemoglobin <7.0 Occult blood screen 6. T2DM: HgA1c d/c Solu-Medrol Insulin Lantus 62 unit BID SSI AC HS Accu Chek AC HS Hypoglycemia protocol Diabetic diet 7. h/o Essential HTN: Currently septic shock, hold any oral antihypertensives GI ppx: oral PPI DVT ppx: Heparin Code status: Full Prognosis: guarded Disposition: inpatient ICU Critical Care Time: 1 hr Status: Acute (11) GI bleeding: Status: Acute (12) Chest pain: Status: Acute Narrative A/P Narrative: Assessment and Plans: 1. Septic shock, unclear source of infection: Inpatient ICU Blood and urine cultures no growth to date; PD fluid does not suggest presence of SBP Zosyn Continue to wean off Levophed as tolerated cbc w/ auto diff in the morning to trend WBC 2. ESRD on peritoneal dialysis: Parts Counter Clerk consulted for PD needs, appreciated No more nursing staff available for PD after Saturday night, working on transfer, see below 3. Hyponatremia, hypokalemia, hypomagnesemia: Potassium and Magnesium IV replacement Repeat CMP and serum Mg level in the morning to trend levels 4. Permanent atrial fibrillation: Currently rate controlled, no Heparin PPX dose only, hold for therapeutic anticoagulation due to worsening anemia 5. Anemia, normocytic normochromic, 2/2 GI bleeding: Occult blood screen positive cbc w/ auto diff in the morning to trend H/H, transfuse if Hemoglobin <7.0 I spoke with building contractor general surgeon Dr. Rodriguez, who recommended outpatient over inpatient endoscopy due to anesthesia risk. d/c Aspirin and Heparin, do SCDs instead Protonix IV BID 6. T2DM: HgA1c 6.7 d/c Solu-Medrol Insulin Lantus , decreased from 62 to 50 unit BID to avoid hypoglycemic eppisodes SSI AC HS Accu Chek AC HS Hypoglycemia protocol Diabetic diet 7. h/o Essential HTN: Currently septic shock, hold any oral antihypertensives 8. Chest pain: No symptoms resolved 12-lead ECG, no signs of acute ischemia Serial Troponin 0.25-->0.27-->0.26 Morphine IV PRN severe pain NitroSTAT SL PRN chest pain GI ppx: Protonix IV BID DVT ppx: SCDs Code status: Full Prognosis: extremely guarded Disposition: inpatient ICU; Last night I spoke to ICU attending from [facility], he he thought it would be an appropriate transfer but he prefer patients to come during the day instead of at night so they advised us to call again this morning for bed availability in order to transfer patients for peritoneal dialysis and the rest of the critical care. Critical Care Time: 1hr Time Spent With Patient Time: Total time spent is greater than 50% in coordination of care (as documented) at patient's floor/unit and/or counseling patient: Total time spent with greater than 50% in coordination of care (as documented) at patient's floor/unit and/or counseling patient:: 50 - 70 minutes
[2022-05-18 07:55] LABS: Basophils # (Auto) 0.04 K/mcL (0.00-0.30); Basophils % (Auto) 0.3 % (0.0-2.0); Eosinophils # (Auto) 0.09 K/mcL (0.00-0.70); Eosinophils % (Auto) 0.7 % (0.0-7.0); Hematocrit 24.6 % (34.1-44.9); Hemoglobin 8.3 g/dL (11.2-15.7); Lymphocytes # (Auto) 1.47 K/mcL (1.50-4.80); Lymphocytes % (Auto) 11.5 % (15.5-49.0); Mean Cell Volume 96.5 fL (80.0-100.0); Mean Corpuscular HGB Conc 33.7 g/dL (31.0-36.0); Mean Platelet Volume 10.5 fL (7.4-10.4); Monocytes # (Auto) 0.62 K/mcL (0.10-0.90); Monocytes % (Auto) 4.9 % (1.0-12.0); Neutrophils % (Auto) 82.6 % (38.0-78.0); Platelet Count 188 K/mcL (140-440); RBC 2.55 M/mcL (3.59-5.38); Red Cell Distribution Width 14.4 % (11.5-14.5); WBC 12.8 K/mcL (4.5-11.0)
[2022-05-18 08:09] LABS: ALT/SGPT 23 U/L (<40); AST/SGOT 18 U/L (<32); Albumin 2.4 gm/dL (3.2-5.2); Albumin/Globulin Ratio 0.9 (1.0-2.3); Alkaline Phosphatase 62 U/L (39-117); Bilirubin,Total 0.3 mg/dL (0.1-1.0); Blood Urea Nitrogen 35 mg/dL (8-23); Calcium 8.3 mg/dL (8.6-10.4); Carbon Dioxide 19 mmol/L (22-30); Chloride 97 mmol/L (96-108); Globulin 2.7 gm/dL (2.2-3.7); Glomerular Filtration Rate 6; Glucose 136 mg/dL (70-105)
[2022-05-18] MEDS: CALCITRIOL 0.25 MCG CAPSULE PO SCH (08:17)
[2022-05-18] MEDS: INSULIN LISPRO 1 UNIT/0.01 ML UNIT SQ SCH (08:17)
[2022-05-18] MEDS: VITAMIN D3 125 MCG TABLET PO SCH (08:17)
[2022-05-18] MEDS: PANTOPRAZOLE 40 MG VIAL IV SCH (08:17)
[2022-05-18] MEDS: POTASSIUM CHLORIDE 20 MEQ TABLET PO SCH (08:18)
[2022-05-18] MEDS: NOREPINEPHRINE BITARTRATE 16 MG in 0.9 % SODIUM CHLORIDE 234 ML IV SCH (08:31)
--- NOTE | 2022-05-18 08:56 | Discharge Summary ---
Discharge Provider Provider IMPORTANT FOLLOW-UP INFORMATION FOR PCP: Patient information: Note initiated : 05/18/22 at 8:53 am Service Date, if different from initiated Date: [] Patient: Debra Walker 76 y/o F admitted on 05/13/22 for N/V/D, headache. Chief Complaint: [] Date of admission: 05/13/22 15:08 Discharge date: 05/18/22 Primary care physician: Praveen Irby Attending physician on admission: Cem Mcbride Consults: 05/13/22 Consult to Physician [CONS] Stat Comment: Consulting Provider: Abril Last Reason For Exam: Physician to Consult Consult to Physician [CONS] Stat Comment: Consulting Provider: Ean Kumar Reason For Exam: Physician to Consult Attending physician on discharge: Cem Mcbride COURSE Hospital Course Hospital course: History of present illness: Ms. Walker is a 76 year old F with a complex past medical history most significant for end-stage renal disease on peritoneal dialysis for approximately 10 months, insulin-dependent diabetes, hypertension and hyperlipidemia who presents to the hospital after she was recently discharged from the ER approximately 2 days ago with ongoing nausea, vomiting and diarrhea. The patient was seen at her facility on May 11 however declined admission and decided to go home. While at home, she continued to deteriorate. Per the 's report who was present at the bedside, the patient was weak, and nearly had a fall. The patient continued to experience nausea and vomiting. She normally undergoes daily peritoneal dialysis at night for approximately 9 hours. She denies any sick contacts or recent travel. When the patient was in the ER previously approximately 2 days ago, she was ruled out for SBP. This time, C. difficile was checked and it was negative. While in the ER, the patient was given IV Benadryl, metoclopramide and IV Dilaudid. She was also bolused multiple times with 500 cc of NS. She was given one-time dose of cefepime. Nephrology were consulted to assist. The hospital service was asked admit the patient for further management and evaluation of her suspected sepsis. 05/15: Afebrile overnight. Fasting glucose 377. Blood and urine cultures no growth to date. Vasopressin switched off; Levophed drip still on 2mcg/min. Patient is c/o weakness. Denies abdominal pain. Denies GI symptoms such as nausea vomiting diarrhea or constipation. Denies fever chills or sweating. Continue Zosyn. Continue to wean Levophed drip as tolerated. 05/16: Afebrile overnight. Fasting glucose 301. Blood and urine cultures no growth to date. Vasopressin switched off; Levophed drip still on 6mcg/min. Stool guaiac positive. Hemoglobin 7.6-->7.6. I spoke with automobile brake b[employer] general surgeon Dr. Rodriguez, who recommended outpatient over inpatient endoscopy due to anesthesia risk. Patient is c/o weakness. She is c/o nausea. Denies abdominal pain. Denies fever chills or sweating. Continue Zosyn. Continue to wean Levophed drip as tolerated. Protonix IV BID, d/c Aspirin and Heparin. SCDs instead. Outpatient endoscopy. Continue nightly peritoneal dialysis. 05/17: Afebrile overnight. On up to 10mcg/min Levophed drip. Cultures no growth to date. H/H stable. Potassium level 2.9, Cr level 6.3. Fasting blood culture 64 this morning. Patient is complaining of 6/10 "jagging" pain, constant, of her left jaw, left neck, left chest, and left shoulder. She is also complaining of shortness of breath. She had insomnia due to her pain. Denies nausea or vomiting. Denies fever, chills, or sweating. Continue Levophed and/or Vasopressin drips to maintain MAP>=65mmHg. Continue Zosyn as empiric antibiotics. 12 lead ECG and serial troponin to rule out TN. Morphine IV and NitroSTAT SL PRN chest pain. Continue Protonix IV BID for GI bleeding. Outpatient endoscopy. Replace potassium 40mEq IV, repeat serum potassium level at noon. Continue peritoneal dialysis at night. 05/18: Last night I spoke to ICU attending from [facility], he he thought it would be an appropriate transfer but he prefer patients to come during the day instead of at night so they advised us to call again this morning for bed availability in order to transfer patients for peritoneal dialysis and the rest of the critical care. Afebrile overnight. Morning labs pending. Troponin 0.25-->0.27-->0.26 Patient is sleeping this morning no other major overnight events. Continue Levophed and/or Vasopressin drips to maintain MAP>=65mmHg. Continue Zosyn as empiric antibiotics. Continue Protonix IV BID for GI bleeding. Outpatient endoscopy. Pending transfer to [facility]. Discharge diagnosis: septic shock Time Spent with Patient Time attestation: Total time spent providing and/or coordinating discharge services: Time spent: Greater than 30 minutes EXAM Constitutional Vitals: Temp Pulse Resp BP Pulse Ox 36.3 C 89 25 H 115/76 99 05/18/22 08:02 05/18/22 08:02 05/18/22 08:02 05/18/22 08:02 05/18/22 08:02 General appearance: cooperative and no acute distress Head Head exam: Present atraumatic and normocephalic Eye Eye exam: Present EOMI and PERRL ENT ENT exam: Present mucous membranes moist, normal exam and normal external ear exam Neck Neck exam: Present normal inspection; Absent lymphadenopathy, tenderness or thyromegaly Additional comments: Left IJ central line Respiratory Respiratory exam: Absent accessory muscle use, respiratory distress or wheezes Cardiovascular Cardiovascular exam: Present irregular rhythm; Absent JVD GI/Abdominal GI/Abdominal exam: Present normal bowel sounds and soft; Absent organomegaly or tenderness Additional comments: PD catheter in place Additional comments: Nava catheter in place Extremities Exam Extremities exam: Present full ROM, normal capillary refill and normal inspection; Absent tenderness Neurological Exam Neurological exam: Present alert, CN II-XII intact and oriented X3; Absent motor sensory deficit Psychiatric Psychiatric exam: Present normal affect and normal mood; Absent anxious or depressed Skin Skin exam: Present dry and intact Discharge Data Data Completed and Pending Labs on day of discharge: Labs from last 24 hours 05/18/22 05/18/22 05/17/22 05:37 05:37 22:42 WBC 12.8 H RBC 2.55 L Hgb 8.3 L Hct 24.6 L MCV 96.5 MCH 32.5 MCHC 33.7 RDW 14.4 Plt Count 188 MPV 10.5 H Neut % (Auto) 82.6 H Lymph % (Auto) 11.5 L [place] % (Auto) 4.9 Eos % (Auto) 0.7 Baso % (Auto) 0.3 Lymph # (Auto) 1.47 L [place] # (Auto) 0.62 Eos # (Auto) 0.09 Baso # (Auto) 0.04 Absolute Neutrophils 10.53 H Sodium 133 Potassium 4.4 Chloride 97 Carbon Dioxide 19 L Anion Gap 17.0 H BUN 35 H Creatinine 6.6 H* GFR Calculation 6 Glucose 136 H Calcium 8.3 L Phosphorus 5.3 H Magnesium 1.7 Total Bilirubin 0.3 AST 18 ALT 23 Alkaline Phosphatase 62 Troponin T TNP Total Protein 5.1 L Albumin 2.4 L Globulin 2.7 Albumin/Globulin Ratio 0.9 L POC Troponin I 05/17/22 05/17/22 05/17/22 22:41 22:41 16:45 WBC RBC Hgb Hct MCV MCH MCHC RDW Plt Count MPV Neut % (Auto) Lymph % (Auto) [place] % (Auto) Eos % (Auto) Baso % (Auto) Lymph # (Auto) [place] # (Auto) Eos # (Auto) Baso # (Auto) Absolute Neutrophils Sodium Potassium Chloride Carbon Dioxide Anion Gap BUN Creatinine GFR Calculation Glucose Calcium Phosphorus Magnesium Total Bilirubin AST ALT Alkaline Phosphatase Troponin T 0.26 H* 0.27 H* Total Protein Albumin Globulin Albumin/Globulin Ratio POC Troponin I 1.40 H 05/17/22 05/17/22 14:37 10:33 WBC RBC Hgb Hct MCV MCH MCHC RDW Plt Count MPV Neut % (Auto) Lymph % (Auto) [place] % (Auto) Eos % (Auto) Baso % (Auto) Lymph # (Auto) [place] # (Auto) Eos # (Auto) Baso # (Auto) Absolute Neutrophils Sodium Potassium 3.9 Chloride Carbon Dioxide Anion Gap BUN Creatinine GFR Calculation Glucose Calcium Phosphorus Magnesium Total Bilirubin AST ALT Alkaline Phosphatase Troponin T 0.25 H* Total Protein Albumin Globulin Albumin/Globulin Ratio POC Troponin I Preliminary micro results at discharge 05/13/22 14:51 Blood Culture - Preliminary Blood 05/13/22 11:43 Blood Culture - Preliminary Blood Discharge Plan Patient/Caregiver Discharge Instructions Activity: increase activity as tolerated Diet: Renal/Consistent Carbs Prescriptions: Discontinued Levemir FlexTouch U-100 Insuln 100 unit/mL (3 mL) insulin pen 62 unit SUB-Q BID Qty: 15 12RF Label Comments: Pt takes 64 units of insulin detemir in the am and 62 units of insulin detemir at night. Pt uses the same pen for each dosage, which is given BID. Rx Instructions: New dose, adjust as needed clonazepam 0.5 mg tablet 1 mg PO QDAY 0RF Label Comments: Patient takes at night. Rx Instructions: Every e,Thur and Sat before dialysis omeprazole 40 mg capsule,delayed release(DR/EC) 1 cap PO QDAY 0RF Label Comments: Pt usually takes one pill in the morning. Levemir FlexTouch U-100 Insuln 100 unit/mL (3 mL) insulin pen 64 unit subcut BID 0RF Label Comments: Pt takes 64 units in the morning and 62 units at night. aspirin [Adult Low Dose Aspirin] 81 mg Tablet,Delayed Release (Dr/Ec) 81 mg PO QDAY 0RF Label Comments: Takes in am. calcitriol 0.25 mcg Capsule 0.25 mcg PO QDAY 0RF Label Comments: Pt takes ones capsule PO every morning. Pepcid Complete 10-800-165 mg Tablet,Chewable 1 tab PO QDAY PRN (Reason: Acid Reflux) 0RF Label Comments: Pt takes one a day, usually in am. cholecalciferol (vitamin D3) [Vitamin D3] 125 mcg (5,000 unit) Tablet 125 mcg PO QDAY 0RF Label Comments: Pt takes one 125 mcg softgel of vitamin D3 every am. melatonin 5 mg Tablet,Chewable 15 mg PO HS PRN (Reason: Insomnia) 0RF Label Comments: Pt takes 3, 5 mg tablets at night. Follow Up Plan Follow up with: Praveen Irby DO [Primary Care Provider] - Patient Disposition: Xf Acute [facility] Hospital Prognosis: Fair Rehab Potential: Good I certify that the patient requires SNF services: No Overall status at discharge: patient is not back to baseline Discharge Orders: Discharge Order (Routine); Ordered 05/18/22 Ordered By: Cem Mcbride
--- NOTE | 2022-05-18 09:04 | Nephrology Progress Note ---
SUBJECTIVE Subjective Patient information: Note initiated : 05/18/22 at 9:02 am Patient: Debra Walker 76 y/o F admitted on 05/13/22 for N/V/D, headache. Chief Complaint: Weakness Principal diagnosis: Septic shock Pertinent ROS: Weakness Constitutional Vitals: Vital Signs Temp Pulse Resp BP Pulse Ox 97.4 F 89 25 H 115/76 99 05/18/22 08:02 05/18/22 08:02 05/18/22 08:02 05/18/22 08:02 05/18/22 08:02 Period Temp Pulse Resp BP Sys/Horn Pulse Ox Last 24 Hr 97.4 F-97.5 F 37-121 0-30 54-150/25-132 93-100 Intake and Output 05/17/22 05/18/22 05/18/22 21:59 05:59 13:59 Intake Total 339 1548 240 Output Total 300 Balance 39 1548 240 Weight 212 lb 8 oz Intake & Output: Intake & Output 05/17/22 05/18/22 05/18/22 21:59 05:59 13:59 Intake Total 339 1548 240 Output Total 300 Balance 39 1548 240 Weight 212 lb 8 oz Intake: IV 339 1428 Sodium Chloride 0.9% 250 ml @ 250 20 mls/hr IV .[id number] YO Rx#: [id number] Lactated Ringers 1,000 ml @ 50 1000 mls/hr IV .Q20H YO Rx#: [id number] Levophed 16 mg In Sodium 19 28 Chloride 0.9% 234 ml @ 10 MCG/ MIN 9.375 mls/hr IV Q24H YO Rx #:[id number] Zosyn 2.25 gm In Dextrose 5% in 50 50 Water 50 ml @ 100 mls/hr IV Q8H YO Rx#:[id number] Potassium Chloride 40 Meq In 270 Dextrose 5% in Water 250 ml @ 67.5 mls/hr IV ONCE ONE Rx#: [id number] Vasostrict 20 Unit In Dextrose 100 5% in Water 99 ml @ 0.04 UNIT/ MIN 12 mls/hr IV Q8 YO Rx#: [id number] Oral 120 240 Output: Emesis 300 Other: Meal Lunch Breakfast Percent of Meal Consumed 50% 75% Feeding Ability Independent Independent Stool Size Moderate Moderate Stool Color Black Brown Stool Consistency Liquid Liquid Loose Loose # Bowel Movements 1 # [place] 3 General appearance: cooperative and no acute distress Head Head exam: Present normal inspection Eye Eye exam: Present normal appearance ENT ENT exam: Present mucous membranes moist Respiratory Respiratory exam: Absent respiratory distress Cardiovascular Cardiovascular exam: Present normal rate and rhythm GI/Abdominal GI/Abdominal exam: Present soft; Absent tenderness Extremities Exam Extremities exam: Absent joint swelling or pedal edema Neurological Exam Neurological exam: Present alert and oriented X3 Psychiatric Psychiatric exam: Present normal affect and normal mood Skin Skin exam: Present warm; Absent rash A/P Assessment and plan (1) End-stage renal disease on peritoneal dialysis: Assessment and plan: Debra Walker is a 76-year-old female with end stage renal disease on peritoneal dialysis, 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 She presented to [facility] ED for nausea, vomiting, and diarrhea. She also had abdominal pain. Her symptoms started about 1 month ago. Vitals were significant for hypotension (BP 85/36). Labs were significant for leukocytosis. No obvious source was identified. She received 1L IV fluids. Cefepime 1g IV ordered. Nephrology consultation was requested for end stage renal disease. End stage renal disease on peritoneal dialysis. Chronic anemia due to ESRD. Hypotension with severe diarrhea, improved. She is back on IV pressors. Hyponatremia, hypokalemia, metabolic acidosis associated with ESRD and diarrhea, improved. Peritoneal dialysis related peritonitis ruled out. PD fluid is clear. Workup: CT Abdomen and Pelvis on 05/13/22: Peritoneal dialysis catheter in the pelvis. Prominent free intraperitoneal fluid and intraperitoneal gas bubbles. No intra- abdominal abscess identified. Severe atherosclerotic calcification including coronary artery calcification. Visceral arteries are also calcified. Bilateral renal atrophy. Previous cholecystectomy and probable hysterectomy. Labs on 05/13/22: Urinalysis sushma, cloudy, pH 5.0, SG 1.024, protein negative, blood 0.03, leukocyte esterase 250. Labs on 05/13/22: WBC 16.7 (neutrophils 83.3%), venous lactate 2.6, lipase 52, Previous Workup: PD Fluid on 05/11/22: Colorless, clear, Nucleated 72 (Neutrophils 34%, Lymph 16%, [place] 27%, [place] 23%), RBC <50,000. Recommendations/Plan: LR at 50 ml/hr. Continue CCPD nightly, 1.5%; fill volume 2,400 ml, 4 exchanges, 10 hours, last fill 2,400 ml. Status: Chronic Time Spent With Patient Time: Total time spent is greater than 50% in coordination of care (as documented) at patient's floor/unit and/or counseling patient:
[2022-05-18] MEDS: INSULIN GLARGINE, HUMAN 1 UNIT/0.01 ML SQ SCH (10:54)
[2022-05-18] MEDS: 0.9 % SODIUM CHLORIDE 10 ML SYRINGE IV SCH (10:54)
[2022-05-18] MEDS ORDERED: LORazepam 2 MG/ML VIAL IV SCH (11:20)
[2022-05-18] MEDS: morphine 2 MG/ML VIAL IV PRN (11:31)
--- NOTE | 2022-05-21 07:38 | EKG ---
[facility] Test Date: 2022-05-17 Pat Name: Debra Walker Department: ICU Room: 120D Gender: Female Cdl B Driver: : 1945 Requested By: Cem Mcbride Order Number: [id number] Reading MD: Jose Trujillo Measurements Intervals [place] Rate: 64 P: -55 [place]: 128 QRS: 44 QRSD: 180 T: 133 QT: 606 QTc: 626 Interpretive Statements Sinus or ectopic atrial rhythm Right bundle branch block Abnormal T, consider ischemia, lateral leads Baseline wander in lead(s) V4 Electronically Signed On 05-21-2022 7:37:48 PDT by Jose Trujillo /store/[email or web address]/[id number]
--- NOTE | 2022-05-21 07:40 | EKG ---
[facility] Test Date: 2022-05-17 Pat Name: Debra Walker Department: ICU Room: 120D Gender: Female Cigar Packer And Sorter: : 1945 Requested By: Cem Mcbride Order Number: [id number] Reading MD: Jose Trujillo Measurements Intervals [place] Rate: 77 P: -27 [place]: 175 QRS: -34 QRSD: 158 T: 128 QT: 433 QTc: 491 Interpretive Statements Age not entered, assumed to be 51 years old for purpose of ECG interpretation Sinus rhythm Atrial premature complex Right bundle branch block Abnormal T, consider ischemia, lateral leads Electronically Signed On 05-21-2022 7:40:04 PDT by Jose Trujillo /[id number]
--- NOTE | 2022-05-21 13:27 | EKG ---
[facility] Test Date: 2022-05-17 Pat Name: Debra Walker Department: ICU Room: 120D Gender: Female Wildlife Officer: : 1945 Requested By: Cem Mcbride Order Number: [id number] Reading MD: Kailash Bello M.D. 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 /store/M0/[id number]/[id number]
== END 2022-05-18 12:05 | disposition short-term general hospital (02) | DRG 871 ==
LOC: ED 06:53 → SUATTDRO 15:08 → ICU 15:08
PROVIDERS: ADMIT Student in an Organized Health Care Education/Training Program; ATTEND Internal Medicine